=== PATIENT | male | born 1940 | race Caucasian/White ===

== ENCOUNTER 2018-07-03 05:42 | Day surgery (SDC) | payer MEDICARE, BC ==
[2018-06-30 14:52] VITALS: BMI 34.4
[2018-07-03] MEDS ORDERED: LACTATED RINGERS 1,000 ML IV SCH (05:50)
[2018-07-03 06:24] VITALS: RESP 18; TEMP 97.6
[2018-07-03] MEDS ORDERED: LIDOCAINE 1% 20 ML VIAL (10MG/ML) FOR IV START INTRADERMA ONE (06:48)
[2018-07-03 06:59] LABS: Glucose,Whole Blood 157 mg/dL (75-99)
[2018-07-03] MEDS ORDERED: PROPOFOL 10 MG/ML 20 ML VIAL IV ONE (07:05)
[2018-07-03 07:55] VITALS: BP 109/66; PULSE 78
--- NOTE | 2018-07-03 07:57 | PCN ---
PROCEDURE NOTE DATE OF SERVICE: 07/03/2018 PROCEDURE: Bone marrow aspirate and biopsy. INDICATION: History of acute lymphoblastic leukemia, now presenting with pancytopenia and with possible relapse. After obtaining consent from the patient, the procedure was performed in the endoscopy suite under general anesthesia performed by anesthesia team. The patient was put in the left lateral decubitus position. The right posterior iliac crest was localized. Skin was prepped with ChloraPrep. All sterile procedures were followed and 1 mL of 1% Xylocaine was used for local anesthetic. A small incision was then made and the Monoject needle was inserted and 15 mL of aspirate and about 1.5 cm core biopsy was obtained without any difficulties. Pressure applied afterwards. There was negligible blood loss. The patient tolerated procedure very well without any immediate complications. MMODL / IJN: [id number] /
[2018-07-03 07:58] LABS: Anisocytosis Slight; Hypochromasia Slight; MCH 33.7 pg (25.0-35.0); MCHC 34.2 g/dL (31.0-37.0); MCV 98.7 fL (80.0-100.0); Macrocytosis Slight; Poikilocytosis Moderate; RBC 2.02 m/uL (4.30-5.90); RDW 19.2 % (11.5-15.5)
[2018-07-03 08:09] LABS: HCT 19.9 % (39.0-53.0); HGB 6.8 gm/dL (13.0-17.5); WBC 1.3 k/uL (3.8-10.6)
[2018-07-03 08:32] LABS: Blast Cells # (M) 0.17 k/uL (0); Eosinophils # (M) 0.01 k/uL (0-0.7); Lymphocytes # (M) 0.81 k/uL (1.0-4.8); Monocytes # (M) 0.07 k/uL (0-1.0); Neutrophils # (M) 0.25 k/uL (1.3-7.7); Neutrophils % (M) 19 %; Nucleated Red Blood Cells 0 /100 WBC (0-0); Total Cells Counted 100
[2018-07-03 08:34] LABS: Basophilic Stippling Present; Polychromasia Present
[2018-07-03 08:36] LABS: RBC Fragments Present; Spherocytes Present; Tear Drop Cells Present
[2018-07-03 08:39] LABS: Platelet Count 44 k/uL (150-450)
== END 2018-07-03 08:27 | disposition home or self-care (01) ==
LOC: OR 05:42
PROVIDERS: ATTEND Internal Medicine Hematology & Oncology
DX: D61.818 Other pancytopenia (principal); D64.9 Anemia, unspecified; C91.01 Acute lymphoblastic leukemia, in remission; I11.0 Hypertensive heart disease with heart failure; I50.9 Heart failure, unspecified; I43 Cardiomyopathy in diseases classified elsewhere; E78.5 Hyperlipidemia, unspecified; M15.9 Polyosteoarthritis, unspecified; E11.9 Type 2 diabetes mellitus without complications; F32.9 Major depressive disorder, single episode, unspecified; Z85.46 Personal history of malignant neoplasm of prostate; Z92.21 Personal history of antineoplastic chemotherapy; Z92.3 Personal history of irradiation; Z90.79 Acquired absence of other genital organ(s); Z95.0 Presence of cardiac pacemaker; Z79.891 Long term (current) use of opiate analgesic; Z79.899 Other long term (current) drug therapy; Z86.73 Personal history of transient ischemic attack (TIA), and cerebral infarction without residual deficits; Z87.891 Personal history of nicotine dependence
CPT/HCPCS: 38221; 85025; J2704

== ENCOUNTER 2018-07-16 11:36 | Inpatient (IN) | payer MEDICARE, BC ==
[2018-07-16] MEDS ORDERED: PIPERACILLIN-TAZOBACTAM 3.375 GM in DEXTROSE/WATER 1 50ML.BAG IVPB STA (11:56)
[2018-07-16] MEDS ORDERED: ACETAMINOPHEN TAB 500 MG TAB PO STA (11:56)
[2018-07-16] MEDS ORDERED: IBUPROFEN 600 MG TAB PO STA (11:56)
[2018-07-16] MEDS: SODIUM CHLORIDE 0.9% 500 ML IV SCH ×2 (12:12→12:48)
--- NOTE | 2018-07-16 12:16 | ED ---
General Adult HPI <Kathleen Cleveland - Last Filed: 07/16/18 14:11> - General Source: EMS, RN notes reviewed Mode of arrival: EMS Limitations: no limitations <Jaleel Walls - Last Filed: 07/16/18 14:48> - General Chief complaint: Weakness Stated complaint: Fall Time Seen by Provider: 07/16/18 11:36 - History of Present Illness Initial comments: This is a 77-year-old male who presents emergency department for generalized weakness. His states he's been getting weaker over the last 3 days and today's at the point where he cannot hold up his own weight. Patient is also complaining of quite a bad rash on his left buttocks cheek going down his left thigh. Patient also is complaining of a extremely irritated and swollen left eye. Patient denies any visual disturbance. Patient denies any cough or known fever. Patient denies abdominal pain patient denies nausea vomiting diarrhea. Patient denies any dysuria hematuria urinary frequency. Patient denies headache patient denies numbness weakness. Patient denies any lightheadedness or dizziness. Patient also states he has AML (WallsJaleel) - Related Data Home Medications Medication Instructions Recorded Confirmed Furosemide [Lasix] 20 mg PO DAILY PRN 12/06/14 07/16/18 amLODIPine [Norvasc] 5 mg PO DAILY 06/30/18 07/16/18 oxyCODONE-APAP 5-325MG [Percocet 1 tab PO Q8HR PRN 07/03/18 07/16/18 5-325 mg] Metoprolol Succinate [Toprol Xl] 50 mg PO DAILY 07/16/18 07/16/18 Potassium Chloride [Klor-Con 20] 20 meq PO DAILY 07/16/18 07/16/18 Rosuvastatin Calcium 5 mg PO DAILY 07/16/18 07/16/18 Vilazodone HCl [Viibryd] 40 mg PO DAILY 07/16/18 07/16/18 Allergies Allergy/AdvReac Type Severity Reaction Status Date / Time Iodinated Contrast- Oral and Allergy Rash/Hives Verified 07/16/18 12:26 IV Dye Review of Systems ROS Other: All systems not noted in ROS Statement are negative. <Kathleen Cleveland - Last Filed: 07/16/18 14:11> ROS Other: All systems not noted in ROS Statement are negative. <Jaleel Walls - Last Filed: 07/16/18 14:48> ROS Statement: Those systems with pertinent positive or pertinent negative responses have been documented in the HPI. Past Medical History Past Medical History: Hyperlipidemia, Hypertension, Myocardial Infarction (non Q -wave) Additional Past Medical History / Comment(s): leukemia History of Any Multi-Drug Resistant Organisms: MRSA Date of last positivie culture/infection: 02/2014 MDRO Source:: scalp Past Surgical History: Cholecystectomy, Orthopedic Surgery, Pacemaker, Prostate Surgery, Tonsillectomy Additional Past Surgical History / Comment(s): left knee partial replacement, right ankle replacement Past Anesthesia/Blood Transfusion Reactions: No Reported Reaction Past Psychological History: No Psychological Hx Reported Smoking Status: Former smoker Past Alcohol Use History: None Reported Past Drug Use History: None Reported <Jaleel Walls - Last Filed: 07/16/18 14:48> General Exam Eye exam: Present: other (IOP-Right 13, Left 9) <Kathleen Cleveland - Last Filed: 07/16/18 14:11> Limitations: no limitations <Jaleel Walls - Last Filed: 07/16/18 14:48> - General Exam Comments Initial Comments: GENERAL: Patient is well-developed and well-nourished. Patient is nontoxic and well- hydrated and is in mild distress. ENT: Neck is soft and supple. No significant lymphadenopathy is noted. Oropharynx is clear. Moist mucous membranes. Neck has full range of motion without eliciting any pain. EYES: Conjunctiva of the left eye so swollen I cannot see any sclera only the iris. Extraocular movements were intact and pupils were equal round and reactive to light. Patient's eyelids are red and swollen. PULMONARY: Unlabored respirations. Good breath sounds bilaterally. No audible rales rhonchi or wheezing was noted. CARDIOVASCULAR: There is a regular rate and rhythm without any murmurs gallops or rubs. Femoral pulses are equal bilaterally ABDOMEN: Soft and nontender with normal bowel sounds. No palpable organomegaly was noted. There is no palpable pulsatile mass. SKIN: Patient has an extensive herpes zoster rash on the left buttocks and down the left posterior thigh. NEUROLOGIC: Patient is alert and oriented x3. Cranial nerves II through XII are grossly intact. Motor and sensory are also intact. Normal speech, volume and content. Symmetrical smile. MUSCULOSKELETAL: Normal extremities with adequate strength and full range of motion. No lower extremity swelling or edema. No calf tenderness. LYMPHATICS: No significant lymphadenopathy is noted PSYCHIATRIC: Normal psychiatric evaluation. (Jaleel Walls) Vital Signs 07/16/18 07/16/18 07/16/18 11:38 12:13 12:30 Temperature 101.1 F H Pulse Rate 94 90 88 Respiratory 18 18 18 Rate Blood Pressure 117/55 136/63 126/56 O2 Sat by Pulse 96 99 99 Oximetry 07/16/18 13:24 Temperature 99.0 F Pulse Rate 83 Respiratory 18 Rate Blood Pressure 126/60 O2 Sat by Pulse 99 Oximetry Medical Decision Making - Lab Data Result diagrams: 07/16/18 12:06 07/16/18 12:06 <Kathleen Cleveland - Last Filed: 07/16/18 14:11> - Lab Data Result diagrams: 07/16/18 12:06 07/16/18 12:06 <Jaleel Walls - Last Filed: 07/16/18 14:48> - Medical Decision Making EKG shows a paced rhythm at 94 bpm GA interval 170 QRS 130 QT interval 356 QTC is 445. Though the left eye is red swollen and there is quite a bit of chemosis patient has full range of motion of the eye and denies any visual acuity problems (Jaleel Walls) - Lab Data Lab Results 07/16/18 07/16/18 07/16/18 Range/Units 12:06 12:06 12:06 WBC 0.8 L* (3.8-10.6) k/uL RBC 2.47 L (4.30-5.90) m/uL Hgb 7.8 L (13.0-17.5) gm/dL Hct 23.1 L (39.0-53.0) % MCV 93.6 D (80.0-100.0) fL MCH 31.8 (25.0-35.0) pg MCHC 34.0 (31.0-37.0) g/dL RDW 18.3 H (11.5-15.5) % Plt Count 28 L* (150-450) k/uL Differential Comment Manual Slide Review Performed Large Platelets Present Polychromasia Present Poikilocytosis Slight Poikilocytosis (manual Present Anisocytosis Slight Macrocytosis Slight PT (9.0-12.0) sec INR (<1.2) APTT (22.0-30.0) sec Sodium 138 (137-145) mmol/L Potassium 4.3 (3.5-5.1) mmol/L Chloride 107 (98-107) mmol/L Carbon Dioxide 24 (22-30) mmol/L Anion Gap 7 mmol/L BUN 23 H (9-20) mg/dL Creatinine 0.90 (0.66-1.25) mg/dL Est GFR (CKD-EPI)AfAm >90 (>60 ml/min/1.73 sqM) Est GFR (CKD-EPI)NonAf 83 (>60 ml/min/1.73 sqM) Glucose 159 H (74-99) mg/dL Plasma Lactic Acid Micheal 1.4 (0.7-2.0) mmol/L Calcium 8.8 (8.4-10.2) mg/dL Total Bilirubin 1.0 (0.2-1.3) mg/dL AST 34 (17-59) U/L ALT 63 (21-72) U/L Alkaline Phosphatase 44 (38-126) U/L Total Creatine Kinase (55-170) U/L CK-MB (CK-2) (0.0-2.4) ng/mL CK-MB (CK-2) Rel Index Troponin I (0.000-0.034) ng/mL Total Protein 5.6 L (6.3-8.2) g/dL Albumin 3.5 (3.5-5.0) g/dL Urine Color Urine Appearance (Clear) Urine pH (5.0-8.0) Ur Specific [place] (1.001-1.035) Urine Protein (Negative) Urine Glucose (UA) (Negative) Urine Ketones (Negative) Urine Blood (Negative) Urine Nitrite (Negative) Urine Bilirubin (Negative) Urine Urobilinogen (<2.0) mg/dL Ur Leukocyte Esterase (Negative) Urine RBC (0-5) /hpf Urine WBC (0-5) /hpf Ur Squamous Epith Cells (0-4) /hpf Urine Mucus (None) /hpf 07/16/18 07/16/18 07/16/18 Range/Units 12:06 12:06 12:06 WBC (3.8-10.6) k/uL RBC (4.30-5.90) m/uL Hgb (13.0-17.5) gm/dL Hct (39.0-53.0) % MCV (80.0-100.0) fL MCH (25.0-35.0) pg MCHC (31.0-37.0) g/dL RDW (11.5-15.5) % Plt Count (150-450) k/uL Differential Comment Manual Slide Review Large Platelets Polychromasia Poikilocytosis Poikilocytosis (manual Anisocytosis Macrocytosis PT 10.2 (9.0-12.0) sec INR 1.0 (<1.2) APTT 24.3 (22.0-30.0) sec Sodium (137-145) mmol/L Potassium (3.5-5.1) mmol/L Chloride (98-107) mmol/L Carbon Dioxide (22-30) mmol/L Anion Gap mmol/L BUN (9-20) mg/dL Creatinine (0.66-1.25) mg/dL Est GFR (CKD-EPI)AfAm (>60 ml/min/1.73 sqM) Est GFR (CKD-EPI)NonAf (>60 ml/min/1.73 sqM) Glucose (74-99) mg/dL Plasma Lactic Acid Micheal (0.7-2.0) mmol/L Calcium (8.4-10.2) mg/dL Total Bilirubin (0.2-1.3) mg/dL AST (17-59) U/L ALT (21-72) U/L Alkaline Phosphatase (38-126) U/L Total Creatine Kinase 253 H (55-170) U/L CK-MB (CK-2) 1.2 (0.0-2.4) ng/mL CK-MB (CK-2) Rel Index 0.5 Troponin I <0.012 (0.000-0.034) ng/mL Total Protein (6.3-8.2) g/dL Albumin (3.5-5.0) g/dL Urine Color Yellow Urine Appearance Cloudy (Clear) Urine pH 5.5 (5.0-8.0) Ur Specific [place] 1.022 (1.001-1.035) Urine Protein 1+ H (Negative) Urine Glucose (UA) Negative (Negative) Urine Ketones Negative (Negative) Urine Blood Negative (Negative) Urine Nitrite Negative (Negative) Urine Bilirubin Negative (Negative) Urine Urobilinogen 2.0 (<2.0) mg/dL Ur Leukocyte Esterase Negative (Negative) Urine RBC 2 (0-5) /hpf Urine WBC 2 (0-5) /hpf Ur Squamous Epith Cells 2 (0-4) /hpf Urine Mucus Many H (None) /hpf Disposition <Kathleen Cleveland - Last Filed: 07/16/18 14:11> Time of Disposition: 13:15 <Jaleel Walls - Last Filed: 07/16/18 14:48> Clinical Impression: Herpes zoster, Chemosis of conjunctiva, Periorbital cellulitis, Leukopenia, Thrombocytopenia, Anemia, AML (acute myeloblastic leukemia) Disposition: ADMITTED IP TO THIS HOSP
[2018-07-16 12:21] LABS: Anisocytosis Slight; HCT 23.1 % (39.0-53.0); HGB 7.8 gm/dL (13.0-17.5); MCH 31.8 pg (25.0-35.0); MCV 93.6 fL (80.0-100.0); Macrocytosis Slight; Mean Platelet Volume 12.9; Poikilocytosis Slight; RBC 2.47 m/uL (4.30-5.90); RDW 18.3 % (11.5-15.5)
[2018-07-16] MEDS ORDERED: cefTRIAXone 2,000 MG in SODIUM CHLORIDE 0.9% 100 ML IVPB STA (12:28)
[2018-07-16 12:30] LABS: Partial Thromboplastin Time 24.3 sec (22.0-30.0); Prothrombin Time 10.2 sec (9.0-12.0)
[2018-07-16] MEDS ORDERED: cefTRIAXone IN SWFI 2,000 MG/20 ML SYRINGE IVP STA (12:30)
[2018-07-16 12:34] LABS: ALT 63 U/L (21-72); AST 34 U/L (17-59); Albumin 3.5 g/dL (3.5-5.0); Alkaline Phosphatase 44 U/L (38-126); Anion Gap 7 mmol/L; Blood Urea Nitrogen 23 mg/dL (9-20); Calcium 8.8 mg/dL (8.4-10.2); Carbon Dioxide 24 mmol/L (22-30); Chloride 107 mmol/L (98-107); Glucose 159 mg/dL (74-99); Potassium 4.3 mmol/L (3.5-5.1); Sodium 138 mmol/L (137-145); Total Protein 5.6 g/dL (6.3-8.2)
[2018-07-16 12:36] LABS: Appearance,Urine Cloudy (Clear); Bilirubin,Urine Negative (Negative); Blood,Urine Negative (Negative); Color,Urine Yellow; Glucose,Urine (UA) Negative (Negative); Ketones,Urine Negative (Negative); Leukocyte Esterase,Urine Negative (Negative); Mucus,Urine Many /hpf; Nitrite,Urine Negative (Negative); PH, Urine 5.5 (5.0-8.0); Protein,Urine 1+ (Negative); RBC,Urine 2 /hpf (0-5); Specific Gravity,Urine 1.022 (1.001-1.035); Squamous Epithelial Cell,Urine 2 /hpf (0-4); WBC,Urine 2 /hpf (0-5)
[2018-07-16 12:45] LABS: Creatine Kinase 253 U/L (55-170)
--- NOTE | 2018-07-16 12:55 | XR ---
EXAMINATION TYPE: XR chest 2V DATE OF EXAM: 07/16/2018 COMPARISON: Prior chest x-ray 05/17/2016 HISTORY: Fever, recent fall, trauma, hypertension TECHNIQUE: Frontal and lateral views of the chest are obtained. FINDINGS: There is a generator in the left pectoral region, intracardiac defibrillator leads are sta ble. No evident pneumothorax or pleural effusion. Heart is enlarged, rotation may accentuate the appe arance. Pulmonary vascularity and song are stable. Suspect some improvement in aeration. IMPRESSION: There is improvement in aeration compared to prior exam. Cardiomegaly.
[2018-07-16 12:58] LABS: Creatine Kinase MB 1.2 ng/mL (0.0-2.4); Troponin I <0.012 ng/mL (0.000-0.034)
[2018-07-16 13:00] LABS: WBC 0.8 k/uL (3.8-10.6)
[2018-07-16 13:33] LABS: Large Platelets Present; Platelet Count 28 k/uL (150-450); Poikilocytosis (M) Present; Polychromasia Present
[2018-07-16] MEDS ORDERED: CEFEPIME 2 GM in SODIUM CHLORIDE 0.9% 50 ML IVPB STA (13:45)
[2018-07-16] MEDS ORDERED: SODIUM CHLORIDE 0.9% 1,000 ML IV ONE (13:46)
[2018-07-16] MEDS ORDERED: VANCOMYCIN IV PER PHARMACY 1 EACH MISC MISCELLANE PRN (14:22)
[2018-07-16] MEDS ORDERED: oxyCODONE-APAP 5-325MG 1 EACH TAB PO PRN (15:13)
[2018-07-16] MEDS ORDERED: FUROSEMIDE 20 MG TAB PO PRN (15:13)
--- NOTE | 2018-07-16 15:49 | P.HPIM ---
History of Present Illness H&P Date: 07/16/18 Chief Complaint: Weakness and shingles This is a 77-year-old male, patient of Dr. Foster. He has a known past medical history of AML which was recently diagnosed and he was scheduled to start chemotherapy on Friday with Dr. Romeo. He also has a history of AML that was diagnosed in 2012 and had undergone chemotherapy. He has a history of prostate cancer status post surgery and radiation in 1998. 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 Patient also has history of hypertension and hyperlipidemia and myocardial infarction and prior pacemaker placement. Patient presents to the emergency room with complaints of generalized weakness and a rash along the left buttocks and into the thigh. Also having some cellulitis changes in the left eye. Patient reports symptoms started on Friday. He has a temp of 101.1 white count 0.8 hemoglobin 7.8 platelets are 28. His eye is red and swollen. There is puslike drainage. He denies any vision changes is reporting him some pain in the area. He also has extensive shingle rash along the left buttocks and into the left thigh. Patient was started on acyclovir cefepime and vancomycin in the ER and was given a dose of IV Zosyn and Rocephin. Infectious disease and oncology have been consulted. Chest x-ray shows improvement in aeration. EKG shows a atrial paced rhythm. Troponin was negative. And CK level 253. Patient denies any chest pain or shortness of breath. Denies any nausea or vomiting. Denies any bowel movement changes or any new urinary symptoms. Patient admits to chronic urinary dribbling after prostate procedure. Review of Systems Please refer to HPI otherwise unremarkable Past Medical History Past Medical History: Hyperlipidemia, Hypertension, Myocardial Infarction (non Q -wave) Additional Past Medical History / Comment(s): leukemia History of Any Multi-Drug Resistant Organisms: MRSA Date of last positivie culture/infection: 02/2014 MDRO Source:: scalp Past Surgical History: Cholecystectomy, Orthopedic Surgery, Pacemaker, Prostate Surgery, Tonsillectomy Additional Past Surgical History / Comment(s): left knee partial replacement, right ankle replacement Past Anesthesia/Blood Transfusion Reactions: No Reported Reaction Type of Cardiac Device: Permanent Pacemaker Device Placement Date:: unk Smoking Status: Former smoker Past Alcohol Use History: Daily Additional Past Alcohol Use History / Comment(s): Patient drinks 1-2 glasses of wine daily - Past Family History Mother Family Medical History: Cancer Additional Family Medical History / Comment(s): skin cancer Sister(s) Family Medical History: Cancer Additional Family Medical History / Comment(s): breast cancer Father Family Medical History: CVA/TIA Medications and Allergies Home Medications Medication Instructions Recorded Confirmed Type Furosemide [Lasix] 20 mg PO DAILY PRN 12/06/14 07/16/18 History amLODIPine [Norvasc] 5 mg PO DAILY 06/30/18 07/16/18 History oxyCODONE-APAP 5-325MG [Percocet 1 tab PO Q8HR PRN 07/03/18 07/16/18 History 5-325 mg] Metoprolol Succinate [Toprol Xl] 50 mg PO DAILY 07/16/18 07/16/18 History Potassium Chloride [Klor-Con 20] 20 meq PO DAILY 07/16/18 07/16/18 History Rosuvastatin Calcium 5 mg PO DAILY 07/16/18 07/16/18 History Vilazodone HCl [Viibryd] 40 mg PO DAILY 07/16/18 07/16/18 History Allergies Allergy/AdvReac Type Severity Reaction Status Date / Time Iodinated Contrast- Oral and Allergy Rash/Hives Verified 07/16/18 12:26 IV Dye Physical Exam Vitals: Vital Signs Temp Pulse Resp BP Pulse Ox 07/16/18 13:24 99.0 F 83 18 126/60 99 07/16/18 12:30 88 18 126/56 99 07/16/18 12:13 90 18 136/63 99 07/16/18 11:38 101.1 F H 94 18 117/55 96 Intake and Output 07/16/18 07/16/18 07/16/18 06:59 14:59 22:59 Other: Weight 99.79 kg Results CBC & Chem 7: 07/16/18 12:06 07/16/18 12:06 Labs: Abnormal Lab Results - Last 24 Hours (Table) 07/16/18 07/16/18 07/16/18 Range/Units 12:06 12:06 12:06 WBC 0.8 L* (3.8-10.6) k/uL RBC 2.47 L (4.30-5.90) m/uL Hgb 7.8 L (13.0-17.5) gm/dL Hct 23.1 L (39.0-53.0) % RDW 18.3 H (11.5-15.5) % Plt Count 28 L* (150-450) k/uL BUN 23 H (9-20) mg/dL Glucose 159 H (74-99) mg/dL Total Creatine Kinase (55-170) U/L Total Protein 5.6 L (6.3-8.2) g/dL Urine Protein 1+ H (Negative) Urine Mucus Many H (None) /hpf 07/16/18 Range/Units 12:06 WBC (3.8-10.6) k/uL RBC (4.30-5.90) m/uL Hgb (13.0-17.5) gm/dL Hct (39.0-53.0) % RDW (11.5-15.5) % Plt Count (150-450) k/uL BUN (9-20) mg/dL Glucose (74-99) mg/dL Total Creatine Kinase 253 H (55-170) U/L Total Protein (6.3-8.2) g/dL Urine Protein (Negative) Urine Mucus (None) /hpf Assessment and Plan Assessment: 1. Left periorbital cellulitis with concerns for possible shingles in that left eye. Patient started on acyclovir cefepime and vancomycin. Infectious disease has been consulted 2. Shingles rash along the left buttocks and thigh area continue with the acyclovir 3. Pancytopenia likely related to patient's AML and acute infections. Oncology has been consulted 4. Recent diagnosis of acute myeloid leukemia: Follows Dr. Romeo in the office patient scheduled to start chemotherapy on Friday 5. 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 History of prostate cancer status post surgery and radiation treatment in 1998 8. 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 History of essential hypertension 10. Hyperlipidemia GI prophylaxis Protonix and DVT prophylaxis SCDs Time with Patient: Greater than 30 (Greater than 60% of the total time spent in counseling and coordination of care.I performed an examination of the patient and discussed their management with the physician Brass Pourer. I have reviewed the Physician Brass Pourer's notes and agree with the documented findings and plan of care)
[2018-07-16] MEDS: VANCOMYCIN 1,500 MG in SODIUM CHLORIDE 0.9% 250 ML IVPB SCH (16:56)
[2018-07-16] MEDS: ACYCLOVIR SODIUM 1,000 MG in SODIUM CHLORIDE 0.9% 250 ML IVPB SCH (16:56)
[2018-07-16] MEDS: VILAZODONE HCL 40 MG PO SCH (17:48)
[2018-07-16] MEDS: CEFEPIME 2 GM in SODIUM CHLORIDE 0.9% 50 ML IVPB SCH (20:36)
[2018-07-16] MEDS ORDERED: predniSONE 10 MG TAB PO SCH (21:00)
[2018-07-17] MEDS: ACYCLOVIR SODIUM 1,000 MG in SODIUM CHLORIDE 0.9% 250 ML IVPB SCH ×4 (00:56→23:05)
[2018-07-17] MEDS: VANCOMYCIN 1,500 MG in SODIUM CHLORIDE 0.9% 250 ML IVPB SCH ×2 (02:47→15:16)
[2018-07-17] MEDS: CEFEPIME 2 GM in SODIUM CHLORIDE 0.9% 50 ML IVPB SCH ×3 (05:10→20:01)
[2018-07-17] MEDS: VILAZODONE HCL 40 MG PO SCH (08:39)
[2018-07-17] MEDS: ATORVASTATIN 10 MG TAB PO SCH (08:39)
[2018-07-17] MEDS: amLODIPine 5 MG TAB PO SCH (08:39)
[2018-07-17] MEDS: POTASSIUM CHLORIDE ER 20 MEQ TAB.ER PO SCH (08:39)
[2018-07-17] MEDS: PANTOPRAZOLE 40 MG TABLET PO SCH (08:39)
[2018-07-17] MEDS: METOPROLOL SUCCINATE (ER) 50 MG TAB.ER.24H PO SCH (08:39)
[2018-07-17 10:13] LABS: Anisocytosis Slight; HCT 20.2 % (39.0-53.0); MCH 33.1 pg (25.0-35.0); MCHC 34.5 g/dL (31.0-37.0); MCV 95.9 fL (80.0-100.0); Macrocytosis Slight; Mean Platelet Volume 11.9; Poikilocytosis Slight; RBC 2.11 m/uL (4.30-5.90); RDW 18.9 % (11.5-15.5)
[2018-07-17 10:17] LABS: WBC 0.8 k/uL (3.8-10.6)
[2018-07-17 10:18] LABS: Platelet Count 21 k/uL (150-450)
[2018-07-17 10:19] LABS: ALT 70 U/L (21-72); AST 38 U/L (17-59); Alkaline Phosphatase 41 U/L (38-126); Anion Gap 6 mmol/L; Blood Urea Nitrogen 17 mg/dL (9-20); Calcium 8.3 mg/dL (8.4-10.2); Carbon Dioxide 26 mmol/L (22-30); Chloride 107 mmol/L (98-107); Glucose 126 mg/dL (74-99); Potassium 3.8 mmol/L (3.5-5.1); Sodium 139 mmol/L (137-145); Total Bilirubin 0.9 mg/dL (0.2-1.3); Total Protein 5.1 g/dL (6.3-8.2)
[2018-07-17 10:50] LABS: Large Platelets Present
[2018-07-17] MEDS: SODIUM CHLORIDE 0.9% 1,000 ML IV SCH (11:32)
--- NOTE | 2018-07-17 11:46 | P.CONS ---
History of Present Illness - Reason for Consult Consult date: 07/17/18 Fever of unknown source - History of Present Illness This is a 77-year-old male patient with significant past history of AML under the care of Dr. Romeo and scheduled to start chemotherapy on Friday. 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 Patient presents to the [facility] emergency center with complaints of generalized weakness and a rash to the left buttocks and thigh and redness to the left eye. Temperature maximum 101.1. White count is 0.8, hemoglobin 7.8 and platelet count 28. BUN 23 and creatinine 0.9, CK 253, troponin negative. Urinalysis was cloudy with 1+ protein. Blood culture and urine culture status received. Chest x-ray is stable findings. He was diagnosed with herpes zoster and periorbital cellulitis. Emergency center, patient received ceftriaxone, cefepime, Zosyn, acyclovir and vancomycin. He is currently on acyclovir IV, cefepime and vancomycin. He is status post 1-1/2 L of IV fluid bolus. There are consults in place with oncology and ophthalmology. Patient has a poor historian, oriented to person and place. He does not have insight into his disease process and is not able to provide significant information. 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, History of Any Multi-Drug Resistant Organisms: MRSA Year Discovered:: 02/2014 MDRO Source:: scalp Past Surgical History: Cholecystectomy, Orthopedic Surgery, Pacemaker, Prostate Surgery, Tonsillectomy Additional Past Surgical History / Comment(s): left knee partial replacement, right ankle replacement Past Anesthesia/Blood Transfusion Reactions: No Reported Reaction Type of Cardiac Device: Permanent Pacemaker Device Placement Date:: unk Smoking Status: Former smoker Past Alcohol Use History: Daily Additional Past Alcohol Use History / Comment(s): She was a smoker of 2 packs per day for 15-20 years ago at 42 years ago. He lives at home with his . They have a home in [place] where they winter and a condo in [place]. He denies any pets or animal exposures. He has worked in the past for [id number]. He retired 20 years ago. He denies any service. Patient drinks 1-2 glasses of wine daily - Past Family History Mother Family Medical History: Cancer Additional Family Medical History / Comment(s): skin cancer Sister(s) Family Medical History: Cancer Additional Family Medical History / Comment(s): breast cancer Father Family Medical History: CVA/TIA Medications and Allergies Home Medications Medication Instructions Recorded Confirmed Type Furosemide [Lasix] 20 mg PO DAILY PRN 12/06/14 07/16/18 History amLODIPine [Norvasc] 5 mg PO DAILY 06/30/18 07/16/18 History oxyCODONE-APAP 5-325MG [Percocet 1 tab PO Q8HR PRN 07/03/18 07/16/18 History 5-325 mg] Metoprolol Succinate [Toprol Xl] 50 mg PO DAILY 07/16/18 07/16/18 History Potassium Chloride [Klor-Con 20] 20 meq PO DAILY 07/16/18 07/16/18 History Rosuvastatin Calcium 5 mg PO DAILY 07/16/18 07/16/18 History Vilazodone HCl [Viibryd] 40 mg PO DAILY 07/16/18 07/16/18 History Allergies Allergy/AdvReac Type Severity Reaction Status Date / Time Iodinated Contrast- Oral and Allergy Rash/Hives Verified 07/16/18 12:26 IV Dye Physical Exam Vitals: Vital Signs Temp Pulse Pulse Resp BP BP Pulse Ox 07/17/18 06:27 99.5 F 106 H 16 138/72 94 L 07/17/18 00:00 18 07/16/18 23:00 99.6 F 108 H 18 157/76 94 L 07/16/18 18:16 98.2 F 89 18 104/46 96 07/16/18 16:10 98.4 F 87 18 104/67 94 L 07/16/18 13:24 99.0 F 83 18 126/60 99 07/16/18 12:30 88 18 126/56 99 07/16/18 12:13 90 18 136/63 99 07/16/18 11:38 101.1 F H 94 18 117/55 96 Intake and Output 07/16/18 07/17/18 07/17/18 22:59 06:59 14:59 Other: # Voids 2 1 # Bowel Movements 2 Gen: This is a 77-year-old male. He is found in bed and appears to be in no acute distress. HEENT: Head is atraumatic, normocephalic. Pupils equal, round. Sclerae is anicteric. Conjunctiva pale. Mucous members of the mouth are moist. She is in place. NECK: Supple. No JVD. No lymphadenopathy. No thyromegaly. LUNGS: Clear to auscultation. No wheezes or rhonchi. No intercostal retractions. HEART: Regular rate and rhythm. No murmur. ABDOMEN: Soft. Bowel sounds are present. No masses. No tenderness. EXTREMITIES: No pedal edema. No calf tenderness. NEUROLOGICAL: Patient is awake, alert and oriented to person and he knows he is in a hospital. Very poor historian and unable to relate full medical history.. Cranial nerves 2 through 12 are grossly intact. Results Results: Laboratory Results WBC 0.8 k/uL (3.8-10.6) L* 07/17/18 09: RBC 2.11 m/uL (4.30-5.90) L 07/17/18 09:27 Hgb 7.0 gm/dL (13.0-17.5) L* 07/17/18 09: Hct 20.2 % (39.0-53.0) L 07/17/18 09: MCV 95.9 fL (80.0-100.0) 07/17/18 09: MCH 33.1 pg (25.0-35.0) 07/17/18 09: MCHC 34.5 g/dL (31.0-37.0) 07/17/18 09: RDW 18.9 % (11.5-15.5) H 07/17/18 09:27 Plt Count 21 k/uL (150-450) L* 07/17/18 09:27 Differential Comment 07/17/18 09: Manual Slide Review Performed 07/17/18 09:27 Large Platelets Present 07/17/18 09:27 Polychromasia Present 07/16/18 12:06 Poikilocytosis Slight 07/17/18 09:27 Poikilocytosis (manual Present 07/16/18 12:06 Anisocytosis Slight 07/17/18 09:27 Macrocytosis Slight 07/17/18 09:27 PT 10.2 sec (9.0-12.0) 07/16/18 12:06 INR 1.0 (<1.2) 07/16/18 12:06 APTT 24.3 sec (22.0-30.0) 07/16/18 12:06 Sodium 139 mmol/L (137-145) 07/17/18 09:27 Potassium 3.8 mmol/L (3.5-5.1) 07/17/18 09:27 Chloride 107 mmol/L (98-107) 07/17/18 09:27 Carbon Dioxide 26 mmol/L (22-30) 07/17/18 09:27 Anion Gap 6 mmol/L 07/17/18 09:27 BUN 17 mg/dL (9-20) 07/17/18 09:27 Creatinine 0.79 mg/dL (0.66-1.25) 07/17/18 09:27 Est GFR (CKD-EPI)AfAm >90 (>60 ml/min/1.73 sqM) 07/17/18 09:27 Est GFR (CKD-EPI)NonAf 88 (>60 ml/min/1.73 sqM) 07/17/18 09:27 Glucose 126 mg/dL (74-99) H 07/17/18 09:27 Plasma Lactic Acid Micheal 1.4 mmol/L (0.7-2.0) 07/16/18 12:06 Calcium 8.3 mg/dL (8.4-10.2) L 07/17/18 09:27 Total Bilirubin 0.9 mg/dL (0.2-1.3) 07/17/18 09:27 AST 38 U/L (17-59) 07/17/18 09:27 ALT 70 U/L (21-72) 07/17/18 09:27 Alkaline Phosphatase 41 U/L (38-126) 07/17/18 09:27 Total Creatine Kinase 253 U/L (55-170) H 07/16/18 12:06 CK-MB (CK-2) 1.2 ng/mL (0.0-2.4) 07/16/18 12:06 CK-MB (CK-2) Rel Index 0.5 07/16/18 12:06 Troponin I <0.012 ng/mL (0.000-0.034) 07/16/18 12:06 Total Protein 5.1 g/dL (6.3-8.2) L 07/17/18 09:27 Albumin 3.0 g/dL (3.5-5.0) L 07/17/18 09:27 Urine Color Yellow 07/16/18 12:06 Urine Appearance Cloudy (Clear) 07/16/18 12:06 Urine pH 5.5 (5.0-8.0) 07/16/18 12:06 Ur Specific [place] 1.022 (1.001-1.035) 07/16/18 12:06 Urine Protein 1+ (Negative) H 07/16/18 12:06 Urine Glucose (UA) Negative (Negative) 07/16/18 12:06 Urine Ketones Negative (Negative) 07/16/18 12:06 Urine Blood Negative (Negative) 07/16/18 12:06 Urine Nitrite Negative (Negative) 07/16/18 12:06 Urine Bilirubin Negative (Negative) 07/16/18 12:06 Urine Urobilinogen 2.0 mg/dL (<2.0) 07/16/18 12:06 Ur Leukocyte Esterase Negative (Negative) 07/16/18 12:06 Urine RBC 2 /hpf (0-5) 07/16/18 12:06 Urine WBC 2 /hpf (0-5) 07/16/18 12:06 Ur Squamous Epith Cells 2 /hpf (0-4) 07/16/18 12:06 Urine Mucus Many /hpf (None) H 07/16/18 12:06 CBC & Chem 7: 07/17/18 09:27 07/17/18 09:27 Labs: Abnormal Lab Results - Last 24 Hours (Table) 07/16/18 07/16/18 07/16/18 Range/Units 12:06 12:06 12:06 WBC 0.8 L* (3.8-10.6) k/uL RBC 2.47 L (4.30-5.90) m/uL Hgb 7.8 L (13.0-17.5) gm/dL Hct 23.1 L (39.0-53.0) % RDW 18.3 H (11.5-15.5) % Plt Count 28 L* (150-450) k/uL BUN 23 H (9-20) mg/dL Glucose 159 H (74-99) mg/dL Total Creatine Kinase (55-170) U/L Total Protein 5.6 L (6.3-8.2) g/dL Urine Protein 1+ H (Negative) Urine Mucus Many H (None) /hpf 07/16/18 Range/Units 12:06 WBC (3.8-10.6) k/uL RBC (4.30-5.90) m/uL Hgb (13.0-17.5) gm/dL Hct (39.0-53.0) % RDW (11.5-15.5) % Plt Count (150-450) k/uL BUN (9-20) mg/dL Glucose (74-99) mg/dL Total Creatine Kinase 253 H (55-170) U/L Total Protein (6.3-8.2) g/dL Urine Protein (Negative) Urine Mucus (None) /hpf Microbiology - Last 24 Hours (Table) 07/16/18 12:06 Urine Culture - Preliminary Urine,Voided Assessment and Plan Plan: This is a 77-year-old male patient presented with leukopenic sepsis along with cellulitis of the left periorbital area and herpes zoster posterior left thigh and buttocks. He is currently on antimicrobials with acyclovir, cefepime and vancomycin which will be continued. Consult is in place for ophthalmology and oncology. Continue supportive care. Further recommendations as patient progresses. The above dictated assessment and findings were discussed with Dr. Min. The impression and plan of care have been directed as dictated. Grecia Carson nurse practitioner acting as scribe for Dr. Min.
--- NOTE | 2018-07-17 13:18 | P.PN ---
Subjective Progress Note Date: 07/17/18 This is a 77-year-old male, patient of Dr. Foster. He has a known past medical history of AML which was recently diagnosed and he was scheduled to start chemotherapy on Friday with Dr. Romeo. He also has a history of AML that was diagnosed in 2012 and had undergone chemotherapy. He has a history of prostate cancer status post surgery and radiation in 1998. 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 Patient also has history of hypertension and hyperlipidemia and myocardial infarction and prior pacemaker placement. Patient presents to the emergency room with complaints of generalized weakness and a rash along the left buttocks and into the thigh. Also having some cellulitis changes in the left eye. Patient reports symptoms started on Friday. He has a temp of 101.1 white count 0.8 hemoglobin 7.8 platelets are 28. His eye is red and swollen. There is puslike drainage. He denies any vision changes is reporting him some pain in the area. He also has extensive shingle rash along the left buttocks and into the left thigh. Patient was started on acyclovir cefepime and vancomycin in the ER and was given a dose of IV Zosyn and Rocephin. Infectious disease and oncology have been consulted. Chest x-ray shows improvement in aeration. EKG shows a atrial paced rhythm. Troponin was negative. And CK level 253. Patient denies any chest pain or shortness of breath. Denies any nausea or vomiting. Denies any bowel movement changes or any new urinary symptoms. Patient admits to chronic urinary dribbling after prostate procedure. 07/17/2018 patient remains on the acyclovir and antibiotics for his herpes zoster rash and periorbital cellulitis of the left eye. Patient seen by infectious disease. Awaiting ophthalmology consult and oncology consult. Patient denies any chest pain shortness of breath any nausea or vomiting. Denies any bowel movement changes or urinary symptoms. Does not report any pain. Objective - Vital Signs Vital signs: Vital Signs Temp 99.5 F 07/17/18 06:27 Pulse 106 H 07/17/18 06:27 Resp 16 07/17/18 06:27 BP 138/72 07/17/18 06:27 Pulse Ox 94 L 07/17/18 06:27 Intake & Output 08/07/17/18 07/17/18 18:59 06:59 18:59 Weight 99.79 kg Other: # Voids 1 # Bowel Movements 2 - Exam HEENT left periorbital cellulitis changes with swelling of the left eyelid. There is some drainage and crusting around the eye. Head normocephalic Neck supple Lungs clear to auscultation bilaterally no wheezing or crackles Heart regular rate and rhythm S1-S2, no rub or gallop Abdomen is soft nontender nondistended positive bowel sounds no hepatosplenomegaly Extremities no edema Neuro alert and orientated to 3 Skin exam patient has a herpes zoster rash along the left buttocks and thigh - Labs CBC & Chem 7: 07/17/18 09:27 07/17/18 09:27 Labs: Abnormal Lab Results - Last 24 Hours (Table) 07/16/18 07/17/18 07/17/18 Range/Units 12:06 09:27 09:27 WBC 0.8 L* (3.8-10.6) k/uL RBC 2.11 L (4.30-5.90) m/uL Hgb 7.0 L* (13.0-17.5) gm/dL Hct 20.2 L (39.0-53.0) % RDW 18.9 H (11.5-15.5) % Plt Count 28 L* 21 L* (150-450) k/uL Glucose 126 H (74-99) mg/dL Calcium 8.3 L (8.4-10.2) mg/dL Total Protein 5.1 L (6.3-8.2) g/dL Albumin 3.0 L (3.5-5.0) g/dL Microbiology - Last 24 Hours (Table) 07/16/18 12:06 Urine Culture - Preliminary Urine,Voided Assessment and Plan Assessment: 1. Left periorbital cellulitis with concerns for possible shingles in that left eye. Patient started on acyclovir cefepime and vancomycin. Ophthalmology and infectious disease consulted 2. Shingles rash along the left buttocks and thigh area continue with the acyclovir 3. Pancytopenia likely related to patient's AML and acute infections. Oncology has been consulted 4. Recent diagnosis of acute myeloid leukemia: Follows Dr. Romeo in the office patient scheduled to start chemotherapy on Friday 5. 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 History of prostate cancer status post surgery and radiation treatment in 1998 8. 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 History of essential hypertension 10. Hyperlipidemia 11. Sepsis secondary to left periorbital cellulitis and herpes zoster. Present on admission. Patient is eating and drinking well. We'll place patient on fluids normal saline at 100 mL an hour. Patient is still having some tachycardia heart rate 106 12. Generalized weakness likely related to his acute infections. Consult physical therapy. GI prophylaxis Protonix and DVT prophylaxis SCDs
--- NOTE | 2018-07-17 15:11 | P.CONS ---
History of Present Illness - Reason for Consult Consult date: 07/17/18 AML Requesting physician: Jaleel Walls - Chief Complaint Fever - History of Present Illness This is a very nice patient who was diagnosed with ALL in in [place],at that time he was extremely sick,had acute renal failure and diverticulitis. Once the diagnosis was established,he received induction chemotherapy (had hyper CVAD)which was completed in ,had a repeat bone marrow biopsy, not into complete molecular remission,the option of allogenic stem cell transplant was discussed with him but he opted for maintenance therapy. He started daily 6MP,weekly MTX,monthly prednisone and vincristine in August,,treatment was held for 2 weeks in due to pancytopenia then it was resumed at a reduced dose,he also had rituxan every 2 months The maintenance treatment was completed in ,most of his treatment was done in [place],he had some of his maintenance therapy in [place] when he was in town for the summer. He had an evaluation in spring 2017 in [place],he was in remission at that time, I did call his oncologist Dr Lora and confirmed it with him,he came to [place] for the summer,was feeling tired,had CBC done at Dr Goldberg in May/2018 and was severly pancytonenic. Bone marrow biopsy done on 07/03/2018 was consistent with AML,cytogenetic revealed mutiple complex cytogenetics,including 5q- and monosomy 7,molecular studies are PENDING Mr. Childress recently seen Dr. Wilson in the office on 07/13/18. A long discussion was had at that time regarding the poor prognosis of this disease, given his declining and poor performance status. He was offered different treatment options to help slow disease process, although treatment options are limited given his performance status, co-morbidities, in particular, cardiac co- morbidities, which preclude the use of standard induction. They discussed hypomethylating agents, dacogen or vidaza, potential side effects /benefits. He was also referred to Dr Moreno, at [facility], he agreed with the plan at this time. He was set up to start Dacogen on Friday in office, although he began with fevers and chills and presented to the emergency department. [place]houn cultures are pending. He is receiving vancomycin and zosyn broad spectrum antibiotics. Infectious disease is following. T-Max was on admission at 101.1, since has been improved. Review of Systems A 14 point review of systems assessed and completed and all negative except HPI. Past Medical History Past Medical History: Hyperlipidemia, Hypertension, Myocardial Infarction (non Q -wave) Additional Past Medical History / Comment(s): leukemia History of Any Multi-Drug Resistant Organisms: MRSA Year Discovered:: 02/2014 MDRO Source:: scalp Past Surgical History: Cholecystectomy, Orthopedic Surgery, Pacemaker, Prostate Surgery, Tonsillectomy Additional Past Surgical History / Comment(s): left knee partial replacement, right ankle replacement Past Anesthesia/Blood Transfusion Reactions: No Reported Reaction Type of Cardiac Device: Permanent Pacemaker Device Placement Date:: unk Smoking Status: Former smoker Past Alcohol Use History: Daily Additional Past Alcohol Use History / Comment(s): Patient drinks 1-2 glasses of wine daily - Past Family History Mother Family Medical History: Cancer Additional Family Medical History / Comment(s): skin cancer Sister(s) Family Medical History: Cancer Additional Family Medical History / Comment(s): breast cancer Father Family Medical History: CVA/TIA Medications and Allergies Home Medications Medication Instructions Recorded Confirmed Type Furosemide [Lasix] 20 mg PO DAILY PRN 12/06/14 07/16/18 History amLODIPine [Norvasc] 5 mg PO DAILY 06/30/18 07/16/18 History oxyCODONE-APAP 5-325MG [Percocet 1 tab PO Q8HR PRN 07/03/18 07/16/18 History 5-325 mg] Metoprolol Succinate [Toprol Xl] 50 mg PO DAILY 07/16/18 07/16/18 History Potassium Chloride [Klor-Con 20] 20 meq PO DAILY 07/16/18 07/16/18 History Rosuvastatin Calcium 5 mg PO DAILY 07/16/18 07/16/18 History Vilazodone HCl [Viibryd] 40 mg PO DAILY 07/16/18 07/16/18 History Allergies Allergy/AdvReac Type Severity Reaction Status Date / Time Iodinated Contrast- Oral and Allergy Rash/Hives Verified 07/16/18 12:26 IV Dye Physical Exam Vitals: Vital Signs Temp Pulse Pulse Resp BP BP Pulse Ox 07/17/18 06:27 99.5 F 106 H 16 138/72 94 L 08/24/18 00:00 18 07/16/18 23:00 99.6 F 108 H 18 157/76 94 L 07/16/18 18:16 98.2 F 89 18 104/46 96 07/16/18 16:10 98.4 F 87 18 104/67 94 L 07/16/18 13:24 99.0 F 83 18 126/60 99 07/16/18 12:30 88 18 126/56 99 07/16/18 12:13 90 18 136/63 99 07/16/18 11:38 101.1 F H 94 18 117/55 96 Intake and Output 07/16/18 07/17/18 07/17/18 22:59 06:59 14:59 Other: # Voids 2 1 # Bowel Movements 2 - Constitutional General appearance: cooperative, no acute distress - EENT Left eye injected, edema, and herpetic lesions Eyes: EOMI ENT: hard of hearing, NA/AT, normal oropharynx - Neck supple, trachea midline Neck: normal ROM - Respiratory Respiratory: bilateral: CTA (No increased effort) - Cardiovascular Heart rate: 106 Rhythm: regular Heart sounds: normal: S1, S2 - Gastrointestinal General gastrointestinal: normal bowel sounds, soft - Integumentary Disseminated Shingles Integumentary: pale - Neurologic No focal Defects Neurologic: CNII-XII intact - Musculoskeletal Musculoskeletal: generalized weakness, strength equal bilaterally - Psychiatric Anxious and very tearful Psychiatric: A&O x's 3, appropriate affect, intact judgment & insight Results CBC & Chem 7: 07/17/18 09:27 07/17/18 09:27 Labs: Abnormal Lab Results - Last 24 Hours (Table) 07/16/18 07/16/18 07/16/18 Range/Units 12:06 12:06 12:06 WBC 0.8 L* (3.8-10.6) k/uL RBC 2.47 L (4.30-5.90) m/uL Hgb 7.8 L (13.0-17.5) gm/dL Hct 23.1 L (39.0-53.0) % RDW 18.3 H (11.5-15.5) % Plt Count 28 L* (150-450) k/uL BUN 23 H (9-20) mg/dL Glucose 159 H (74-99) mg/dL Calcium (8.4-10.2) mg/dL Total Creatine Kinase (55-170) U/L Total Protein 5.6 L (6.3-8.2) g/dL Albumin (3.5-5.0) g/dL Urine Protein 1+ H (Negative) Urine Mucus Many H (None) /hpf 07/16/18 07/17/18 07/17/18 Range/Units 12:06 09:27 09:27 WBC 0.8 L* (3.8-10.6) k/uL RBC 2.11 L (4.30-5.90) m/uL Hgb 7.0 L* (13.0-17.5) gm/dL Hct 20.2 L (39.0-53.0) % RDW 18.9 H (11.5-15.5) % Plt Count 21 L* (150-450) k/uL BUN (9-20) mg/dL Glucose 126 H (74-99) mg/dL Calcium 8.3 L (8.4-10.2) mg/dL Total Creatine Kinase 253 H (55-170) U/L Total Protein 5.1 L (6.3-8.2) g/dL Albumin 3.0 L (3.5-5.0) g/dL Urine Protein (Negative) Urine Mucus (None) /hpf Microbiology - Last 24 Hours (Table) 07/16/18 12:06 Urine Culture - Preliminary Urine,Voided Chest x-ray: report reviewed Assessment and Plan Plan: Assessment and Recommendations: 1. Febrile Neutropenia: Likely viral secondary to shingles. - Infectious Disease is Following - [facility] Cultures are pending, Chest X-ray Neg - T-Max on Admission 101.1 - Vancomycin and ZOsyn 2. Pancytopenia secondary to AML Normocytic anemia - Monitor and transfuse with irradiated blood products when hemoglobin is less than 7 Thrombocytopenia - Monitor and transfuse if less than 10, SDP irradiated blood products, Monitor s/s bleeding and transfuse if s/s bleeding Neutropenia - As Above 3. Acute Myeloid Leukemia - - Follows with Dr. Wilson - Not Candidate for aggressive Induction therapy secondary to overall performance status and cardiac co-morbidities - Plan was to begin Dacogen Friday in office while awaiting cytogenetics - Hold Plan for dacogen until acute infection improves/resolves 4. Disseminated Shingles, inclving left eye: - He continues on anti-viral medication - Discussed case with Dr. Wilson and benefit of adding a colony stimulating factor outweigh the risk in the picture of an active infection. - Zarxio added to patients medications
[2018-07-17] MEDS: FILGRASTIM-SNDZ 480 MCG/0.8 ML SYRINGE SQ SCH (15:16)
--- NOTE | 2018-07-17 18:11 | CONS ---
CONSULTATION DATE OF CONSULTATION: July 17, 2018. HISTORY OF PRESENT ILLNESS: This is a 77-year-old white male with a history of AML that was diagnosed initially in 2012. The patient has undergone chemotherapy previously and was scheduled to restart chemo treatments as well. He also has a history of prostate cancer, basal cell carcinoma, as well as MRSA. More recently, the patient states that he developed swelling and redness in his left eye and periorbital area. He denies any new decrease in visual acuity however. EXAM: Visual acuity measured 20/70 in the right eye and 20/50 in the left. The pupils are equal, reactive to light. There was no afferent defect. Extraocular movements were full in all gaze positions. No diplopia was elicited in any gaze position. On penlight exam, evaluation of the lids demonstrated swelling and erythema of the left periorbital tissue and especially the left upper lid. The eyelid was not swollen shut, however. The left conjunctivae showed a subconjunctival hemorrhage for 360 degrees around the limbus. Both corneas were clear. The anterior chambers were deep and the lenses were centered. Fundus exam revealed a good red reflex. IMPRESSION: Left preseptal cellulitis. The patient states that his swelling and redness has decreased since the initiation of IV antibiotics yesterday. In light of this, I would recommend continuing on his current regimen and agree with consulting Infectious Disease due to his history of MRSA. I would be happy to have him follow up as an outpatient. PANFILO / KUMAR: [id number] /
--- NOTE | 2018-07-17 18:33 | CT ---
EXAMINATION TYPE: CT brain wo con DATE OF EXAM: 07/17/2018 COMPARISON: 05/17/2016 HISTORY: Mental status changes. Weakness CT DLP: mGycm Automated exposure control for dose reduction was used. FINDINGS: There is cerebral cortical atrophy. There is no mass effect nor midline shift. There is no sign of in tracranial hemorrhage. Exam is limited slightly by motion. The calvarium is intact. IMPRESSION: CEREBRAL ATROPHY. NO ACUTE INTRACRANIAL ABNORMALITY. NO CHANGE.
[2018-07-17] MEDS: ACETAMINOPHEN TAB 325 MG TAB PO PRN (21:41)
--- NOTE | 2018-07-18 00:09 | P.CON ---
Consult Note - . Consult date: 07/17/18 Assessment/Plan:: This is a 77-year-old male patient with significant past history of AML under the care of Dr. Romeo and scheduled to start chemotherapy on Friday. 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 Patient presents to the [facility] emergency center with complaints of generalized weakness and a rash to the left buttocks and thigh and redness to the left eye. Temperature maximum 101.1. White count is 0.8, hemoglobin 7.8 and platelet count 28. BUN 23 and creatinine 0.9, CK 253, troponin negative. Urinalysis was cloudy with 1+ protein. Blood culture and urine culture status received. Chest x-ray is stable findings. He was diagnosed with herpes zoster and periorbital cellulitis. Emergency center, patient received ceftriaxone, cefepime, Zosyn, acyclovir and vancomycin. He is currently on acyclovir IV, cefepime and vancomycin. He is status post 1-1/2 L of IV fluid bolus. There are consults in place with oncology and ophthalmology. Patient has a poor historian, oriented to person and place. He does not have insight into his disease process and is not able to provide significant information. Please see the consult note as dictated by nurse practitioner Grecia Leejane. The patient is examined and his is present. She relates he's had a significant decline recently. With his diagnosis of AML after his diagnosis available he has further and rapidly declined. He is evidence of the significant swelling and erythema to the periorbital area and to the eye, as well as the pruritus sella on the left buttocks area. The patient does have altered mental status and will be having a computed tomography scan done shortly. This point in time the patient is profoundly ill with his recently diagnosed AML in chemotherapy needs to be on hold given his current level of illness. Antibiotic therapy is with cefepime and vancomycin and acyclovir . We 'll need to have further input with hematology oncology, as the possible need of a lumbar puncture which is very challenging given his current clinical situation. Concern would be to leukemic involvement or potential for central nervous system infection, with concern to varicella given his current shingles. I agree with evaluation, assessment and plan as dictated by nurse practitioner Mrs. Grecia Carson.
[2018-07-18] MEDS: VANCOMYCIN 1,500 MG in SODIUM CHLORIDE 0.9% 250 ML IVPB SCH ×2 (02:53→15:01)
[2018-07-18] MEDS: CEFEPIME 2 GM in SODIUM CHLORIDE 0.9% 50 ML IVPB SCH ×3 (05:06→20:34)
[2018-07-18] MEDS: SODIUM CHLORIDE 0.9% 1,000 ML IV SCH ×2 (06:06→15:01)
[2018-07-18] MEDS: PANTOPRAZOLE 40 MG TABLET PO SCH (08:46)
[2018-07-18] MEDS: amLODIPine 5 MG TAB PO SCH (08:46)
[2018-07-18] MEDS: ATORVASTATIN 10 MG TAB PO SCH (08:46)
[2018-07-18] MEDS: ACYCLOVIR SODIUM 1,000 MG in SODIUM CHLORIDE 0.9% 250 ML IVPB SCH ×3 (08:46→23:15)
[2018-07-18] MEDS: METOPROLOL SUCCINATE (ER) 50 MG TAB.ER.24H PO SCH (08:47)
[2018-07-18] MEDS: POTASSIUM CHLORIDE ER 20 MEQ TAB.ER PO SCH (08:47)
[2018-07-18] MEDS: VILAZODONE HCL 40 MG PO SCH (08:47)
[2018-07-18 09:01] LABS: ALT 69 U/L (21-72); AST 36 U/L (17-59); Albumin 2.9 g/dL (3.5-5.0); Alkaline Phosphatase 39 U/L (38-126); Anion Gap 8 mmol/L; Blood Urea Nitrogen 14 mg/dL (9-20); Calcium 8.4 mg/dL (8.4-10.2); Carbon Dioxide 24 mmol/L (22-30); Chloride 106 mmol/L (98-107); Glucose 100 mg/dL (74-99); Potassium 3.7 mmol/L (3.5-5.1); Sodium 138 mmol/L (137-145)
[2018-07-18 09:09] LABS: Anisocytosis Slight; HCT 20.7 % (39.0-53.0); HGB 7.2 gm/dL (13.0-17.5); MCH 33.2 pg (25.0-35.0); MCHC 34.5 g/dL (31.0-37.0); MCV 96.3 fL (80.0-100.0); Macrocytosis Slight; Mean Platelet Volume 12.6; Poikilocytosis Slight; RBC 2.15 m/uL (4.30-5.90); RDW 18.8 % (11.5-15.5)
[2018-07-18 09:11] LABS: Platelet Count 22 k/uL (150-450)
[2018-07-18 09:24] LABS: Band Neutrophils % 1 %; Eosinophils # (M) 0.01 k/uL (0-0.7); Lymphocytes # (M) 0.58 k/uL (1.0-4.8); Monocytes # (M) 0.09 k/uL (0-1.0); Neutrophils % (M) 31 %; Nucleated Red Blood Cells 1 /100 WBC (0-0); Polychromasia Present; Total Cells Counted 100
[2018-07-18 09:25] LABS: Ovalocytes Present; Toxic Granulation Present
--- NOTE | 2018-07-18 10:51 | P.PN ---
Subjective Progress Note Date: 07/18/18 Patient continues to have intermittent fevers, with a maximum of 101.8 in the last 24 hours. He has developed confusion, though he remains alert. He denies any significant pain at this time, other than eye discomfort. He denies any decline in vision in the left eye. Objective - Vital Signs Vital signs: Vital Signs Temp 99 F 07/18/18 09:01 Pulse 102 H 07/18/18 05:45 Resp 20 07/18/18 05:45 BP 145/67 07/18/18 05:45 Pulse Ox 96 07/18/18 05:45 Intake & Output 07/17/18 07/18/18 07/18/18 18:59 06:59 18:59 Intake Total 600 50 Balance 600 50 Weight 99.79 kg Intake: Oral 600 50 Other: # Voids 1 2 # Bowel Movements 1 1 - Constitutional General appearance: Present: no acute distress - EENT EENT Comment(s): Left periorbital erythema and swelling. Conjunctival injection Eyes: Present: EOMI - Respiratory Respiratory: bilateral: CTA - Cardiovascular Rhythm: regular Heart sounds: normal: S1, S2 - Gastrointestinal General gastrointestinal: Present: normal bowel sounds, soft - Integumentary Integumentary: Present: rash (Non-confluent mostly papular rash covering left scalp and left side of face. No active pustules seen currently. He) - Neurologic Neurologic Comment(s): Patient is alert. But appears to be confused. He was oriented to self, but was unable to give me his address, or the correct day of the week. He did know that this was June. He thought he had an appointment with Dr. Wilson today. Neurologic: Present: CNII-XII intact - Musculoskeletal Musculoskeletal: Present: generalized weakness, strength equal bilaterally - Psychiatric Psychiatric Comment(s): Confused. Oriented partially to time and place. - Labs CBC & Chem 7: 07/18/18 08:20 07/18/18 08:20 Labs: Abnormal Lab Results - Last 24 Hours (Table) 07/18/18 07/18/18 Range/Units 08:20 08:20 WBC 1.0 L* (3.8-10.6) k/uL RBC 2.15 L (4.30-5.90) m/uL Hgb 7.2 L (13.0-17.5) gm/dL Hct 20.7 L (39.0-53.0) % RDW 18.8 H (11.5-15.5) % Plt Count 22 L* (150-450) k/uL Neutrophils # (Manual) 0.30 L (1.3-7.7) k/uL Lymphocytes # (Manual) 0.58 L (1.0-4.8) k/uL Nucleated RBCs 1 H (0-0) /100 WBC Glucose 100 H (74-99) mg/dL Total Protein 5.0 L (6.3-8.2) g/dL Albumin 2.9 L (3.5-5.0) g/dL Microbiology - Last 24 Hours (Table) 07/16/18 12:06 Urine Culture - Final Urine,Voided 07/16/18 12:06 Blood Culture - Preliminary Blood No Growth after 24 hours Assessment and Plan (1) Neutropenic fever Narrative/Plan: The patient continues to have intermittent fevers, though hemodynamics are not in the sepsis range currently. Patient has been seen by ID. He is currently on broad-spectrum antibiotics, including IV acyclovir. Continue antibiotics per ID Current Visit: No Status: Acute Priority: High Code(s): D70.9 - NEUTROPENIA, UNSPECIFIED SNOMED Code(s): 737641573 (2) Herpes zoster Narrative/Plan: The patient is on IV acyclovir. Current Visit: Yes Status: Acute Code(s): B02.9 - ZOSTER WITHOUT COMPLICATIONS SNOMED Code(s): 3189642 (3) AML (acute myeloblastic leukemia) Narrative/Plan: The patient has not started treatment yet. He has severe pancytopenia due to underlying AML. Continue to monitor counts are supportive transfusions as needed. Hemoglobin and platelet counts are in a safe range currently Current Visit: Yes Status: Acute Code(s): C92.00 - ACUTE MYELOBLASTIC LEUKEMIA, NOT HAVING ACHIEVED REMISSION SNOMED Code(s): 91774603 (4) Confusion Narrative/Plan: This seems to have developed after the admission. The patient is alert and responsive. Therefore herpes encephalitis appears less likely. Leukemic meningeal involvement, as well as medication effect on among the differentials. I will discuss with Dr. Min regarding possibility of LP. If felt to be indicated, we will consult IR. The situation is, indicated by the low platelet counts. The patient will need platelet transfusions for invasive procedures Current Visit: Yes Status: Acute Code(s): R41.0 - DISORIENTATION, UNSPECIFIED SNOMED Code(s): 079462670
[2018-07-18] MEDS: FILGRASTIM-SNDZ 480 MCG/0.8 ML SYRINGE SQ SCH (11:22)
[2018-07-18] MEDS ORDERED: VANCOMYCIN TROUGH DUE 1 EACH MISC MISCELLANE ONE (14:00)
--- NOTE | 2018-07-18 14:14 | P.PN ---
Subjective Progress Note Date: 07/18/18 This is a 77-year-old male, patient of Dr. Foster. He has a known past medical history of AML which was recently diagnosed and he was scheduled to start chemotherapy on Friday with Dr. Romeo. He also has a history of AML that was diagnosed in 2012 and had undergone chemotherapy. He has a history of prostate cancer status post surgery and radiation in 1998. 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 Patient also has history of hypertension and hyperlipidemia and myocardial infarction and prior pacemaker placement. Patient presents to the emergency room with complaints of generalized weakness and a rash along the left buttocks and into the thigh. Also having some cellulitis changes in the left eye. Patient reports symptoms started on Friday. He has a temp of 101.1 white count 0.8 hemoglobin 7.8 platelets are 28. His eye is red and swollen. There is puslike drainage. He denies any vision changes is reporting him some pain in the area. He also has extensive shingle rash along the left buttocks and into the left thigh. Patient was started on acyclovir cefepime and vancomycin in the ER and was given a dose of IV Zosyn and Rocephin. Infectious disease and oncology have been consulted. Chest x-ray shows improvement in aeration. EKG shows a atrial paced rhythm. Troponin was negative. And CK level 253. Patient denies any chest pain or shortness of breath. Denies any nausea or vomiting. Denies any bowel movement changes or any new urinary symptoms. Patient admits to chronic urinary dribbling after prostate procedure. 07/17/2018 patient remains on the acyclovir and antibiotics for his herpes zoster rash and periorbital cellulitis of the left eye. Patient seen by infectious disease. Awaiting ophthalmology consult and oncology consult. Patient denies any chest pain shortness of breath any nausea or vomiting. Denies any bowel movement changes or urinary symptoms. Does not report any pain. On 07/18/2018 patient is alert confused in no apparent distress, he had episodes of hallucinations, computed tomography scan of the brain was done yesterday and did not reveal significant abnormality, he is being followed by infectious disease and oncology, neurology consultation was also requested, continue was current management, may need lumbar puncture to assess cause of confusion if not improving. Objective - Vital Signs Vital signs: Vital Signs Temp 99 F 07/18/18 09:01 Pulse 102 H 07/18/18 05:45 Resp 20 07/18/18 05:45 BP 145/67 07/18/18 05:45 Pulse Ox 96 07/18/18 05:45 Intake & Output 07/17/18 07/18/18 07/18/18 18:59 06:59 18:59 Intake Total 600 50 Balance 600 50 Weight 99.79 kg Intake: Oral 600 50 Other: # Voids 1 2 # Bowel Movements 1 1 - Exam HEENT left periorbital cellulitis changes with swelling of the left eyelid. There is some drainage and crusting around the eye. Head normocephalic Neck supple Lungs clear to auscultation bilaterally no wheezing or crackles Heart regular rate and rhythm S1-S2, no rub or gallop Abdomen is soft nontender nondistended positive bowel sounds no hepatosplenomegaly Extremities no edema Neuro alert and orientated to 3 Skin exam patient has a herpes zoster rash along the left buttocks and thigh - Labs CBC & Chem 7: 07/18/18 08:20 07/18/18 08:20 Labs: Abnormal Lab Results - Last 24 Hours (Table) 07/18/18 07/18/18 Range/Units 08:20 08:20 WBC 1.0 L* (3.8-10.6) k/uL RBC 2.15 L (4.30-5.90) m/uL Hgb 7.2 L (13.0-17.5) gm/dL Hct 20.7 L (39.0-53.0) % RDW 18.8 H (11.5-15.5) % Plt Count 22 L* (150-450) k/uL Neutrophils # (Manual) 0.30 L (1.3-7.7) k/uL Lymphocytes # (Manual) 0.58 L (1.0-4.8) k/uL Nucleated RBCs 1 H (0-0) /100 WBC Glucose 100 H (74-99) mg/dL Total Protein 5.0 L (6.3-8.2) g/dL Albumin 2.9 L (3.5-5.0) g/dL Microbiology - Last 24 Hours (Table) 07/16/18 12:06 Urine Culture - Final Urine,Voided 07/16/18 12:06 Blood Culture - Preliminary Blood No Growth after 24 hours Assessment and Plan Plan: 1. Left periorbital cellulitis with concerns for possible shingles in that left eye. Patient started on acyclovir cefepime and vancomycin. Ophthalmology and infectious disease consulted 2. Shingles rash along the left buttocks and thigh area continue with the acyclovir 3. Pancytopenia likely related to patient's AML and acute infections. Oncology has been consulted 4. Recent diagnosis of acute myeloid leukemia: Follows Dr. Romeo in the office patient scheduled to start chemotherapy on Friday 5. 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 History of prostate cancer status post surgery and radiation treatment in 1998 8. 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 History of essential hypertension 10. Hyperlipidemia 11. Sepsis secondary to left periorbital cellulitis and herpes zoster. Present on admission. Patient is eating and drinking well. We'll place patient on fluids normal saline at 100 mL an hour. Patient is still having some tachycardia heart rate 106 12. Generalized weakness likely related to his acute infections. Consult physical therapy. 13. Confusion and episodes of hallucination differential diagnosis include side effect of multiple medication versus leukemia meningeal involvement versus herpes encephalitis related to his zoster infection, patient may need lumbar puncture, he is maintained on IV acyclovir, oncology and infectious disease are following, will add neurology consult for assessment, computed tomography scan of the brain did not reveal significant abnormalities. GI prophylaxis Protonix and DVT prophylaxis SCDs
[2018-07-18] MEDS: ACETAMINOPHEN TAB 325 MG TAB PO PRN (15:19)
[2018-07-19] MEDS ORDERED: VANCOMYCIN TROUGH DUE 1 EACH MISC MISCELLANE ONE (02:00)
[2018-07-19] MEDS: VANCOMYCIN 1,500 MG in SODIUM CHLORIDE 0.9% 250 ML IVPB SCH ×2 (03:24→14:08)
[2018-07-19] MEDS: ACETAMINOPHEN TAB 325 MG TAB PO PRN (03:49)
[2018-07-19] MEDS: SODIUM CHLORIDE 0.9% 1,000 ML IV SCH ×3 (04:45→22:20)
[2018-07-19] MEDS: CEFEPIME 2 GM in SODIUM CHLORIDE 0.9% 50 ML IVPB SCH ×3 (05:28→20:41)
[2018-07-19] MEDS: ACYCLOVIR SODIUM 1,000 MG in SODIUM CHLORIDE 0.9% 250 ML IVPB SCH ×2 (08:25→17:25)
[2018-07-19] MEDS: ATORVASTATIN 10 MG TAB PO SCH (08:27)
[2018-07-19] MEDS: METOPROLOL SUCCINATE (ER) 50 MG TAB.ER.24H PO SCH (08:27)
[2018-07-19] MEDS: PANTOPRAZOLE 40 MG TABLET PO SCH (08:27)
[2018-07-19] MEDS: amLODIPine 5 MG TAB PO SCH (08:27)
[2018-07-19] MEDS: POTASSIUM CHLORIDE ER 20 MEQ TAB.ER PO SCH (08:27)
[2018-07-19 09:49] LABS: Anisocytosis Slight; MCH 31.9 pg (25.0-35.0); MCHC 33.4 g/dL (31.0-37.0); MCV 95.5 fL (80.0-100.0); Macrocytosis Slight; Mean Platelet Volume 13.1; Poikilocytosis Slight; RBC 2.03 m/uL (4.30-5.90); RDW 18.5 % (11.5-15.5)
[2018-07-19 09:50] LABS: Platelet Count 24 k/uL (150-450); WBC 1.1 k/uL (3.8-10.6)
[2018-07-19 09:51] LABS: HGB 6.5 gm/dL (13.0-17.5)
[2018-07-19 09:52] LABS: HCT 19.4 % (39.0-53.0)
[2018-07-19 10:08] LABS: Band Neutrophils % 1 %; Monocytes # (M) 0.01 k/uL (0-1.0); Neutrophils % (M) 34 %; Nucleated Red Blood Cells 0 /100 WBC (0-0); Polychromasia Present; Total Cells Counted 100
[2018-07-19 10:20] LABS: ALT 62 U/L (21-72); AST 28 U/L (17-59); Albumin 2.6 g/dL (3.5-5.0); Alkaline Phosphatase 37 U/L (38-126); Anion Gap 6 mmol/L; Blood Urea Nitrogen 15 mg/dL (9-20); Calcium 8.1 mg/dL (8.4-10.2); Carbon Dioxide 23 mmol/L (22-30); Chloride 109 mmol/L (98-107); Glucose 92 mg/dL (74-99); Potassium 3.5 mmol/L (3.5-5.1); Sodium 138 mmol/L (137-145); Total Bilirubin 0.7 mg/dL (0.2-1.3); Total Protein 4.7 g/dL (6.3-8.2)
[2018-07-19] MEDS: VILAZODONE HCL 40 MG PO SCH ×2 (10:22→14:08)
[2018-07-19] MEDS: FILGRASTIM-SNDZ 480 MCG/0.8 ML SYRINGE SQ SCH (10:22)
--- NOTE | 2018-07-19 16:19 | P.PN ---
Subjective Progress Note Date: 07/19/18 This is a 77-year-old male, patient of Dr. Foster. He has a known past medical history of AML which was recently diagnosed and he was scheduled to start chemotherapy on Friday with Dr. Romeo. He also has a history of AML that was diagnosed in 2012 and had undergone chemotherapy. He has a history of prostate cancer status post surgery and radiation in 1998. 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 Patient also has history of hypertension and hyperlipidemia and myocardial infarction and prior pacemaker placement. Patient presents to the emergency room with complaints of generalized weakness and a rash along the left buttocks and into the thigh. Also having some cellulitis changes in the left eye. Patient reports symptoms started on Friday. He has a temp of 101.1 white count 0.8 hemoglobin 7.8 platelets are 28. His eye is red and swollen. There is puslike drainage. He denies any vision changes is reporting him some pain in the area. He also has extensive shingle rash along the left buttocks and into the left thigh. Patient was started on acyclovir cefepime and vancomycin in the ER and was given a dose of IV Zosyn and Rocephin. Infectious disease and oncology have been consulted. Chest x-ray shows improvement in aeration. EKG shows a atrial paced rhythm. Troponin was negative. And CK level 253. Patient denies any chest pain or shortness of breath. Denies any nausea or vomiting. Denies any bowel movement changes or any new urinary symptoms. Patient admits to chronic urinary dribbling after prostate procedure. 07/17/2018 patient remains on the acyclovir and antibiotics for his herpes zoster rash and periorbital cellulitis of the left eye. Patient seen by infectious disease. Awaiting ophthalmology consult and oncology consult. Patient denies any chest pain shortness of breath any nausea or vomiting. Denies any bowel movement changes or urinary symptoms. Does not report any pain. On 07/18/2018 patient is alert confused in no apparent distress, he had episodes of hallucinations, computed tomography scan of the brain was done yesterday and did not reveal significant abnormality, he is being followed by infectious disease and oncology, neurology consultation was also requested, continue was current management, may need lumbar puncture to assess cause of confusion if not improving. On 07/19/2018 patient is more alert than yesterday no new episodes of hallucinations hemoglobin is down to 6.5 and 1 unit of red blood cell transfusion was ordered. Patient is denying any symptoms at this time there is no fever or chills no headache or dizziness no chest pain no shortness of breath no cough no nausea or vomiting no abdominal pain no diarrhea and no urinary symptoms. Objective - Vital Signs Vital signs: Vital Signs Temp 100.0 F H 07/19/18 15:00 Pulse 91 07/19/18 15:00 Resp 20 07/19/18 15:00 BP 131/70 07/19/18 15:00 Pulse Ox 95 07/19/18 15:00 Intake & Output 07/18/18 07/19/18 07/19/18 18:59 06:59 18:59 Intake Total 200 Balance 200 Intake: Oral 200 Other: # Voids 3 2 3 - Exam HEENT left periorbital cellulitis changes with swelling of the left eyelid. There is some drainage and crusting around the eye. Head normocephalic Neck supple Lungs clear to auscultation bilaterally no wheezing or crackles Heart regular rate and rhythm S1-S2, no rub or gallop Abdomen is soft nontender nondistended positive bowel sounds no hepatosplenomegaly Extremities no edema Neuro alert and orientated to 3 Skin exam patient has a herpes zoster rash along the left buttocks and thigh - Labs CBC & Chem 7: 07/19/18 09:09 07/19/18 09:09 Labs: Abnormal Lab Results - Last 24 Hours (Table) 07/19/18 07/19/18 Range/Units 09:09 09:09 WBC 1.1 L* (3.8-10.6) k/uL RBC 2.03 L (4.30-5.90) m/uL Hgb 6.5 L* (13.0-17.5) gm/dL Hct 19.4 L* (39.0-53.0) % RDW 18.5 H (11.5-15.5) % Plt Count 24 L* (150-450) k/uL Neutrophils # (Manual) 0.30 L (1.3-7.7) k/uL Lymphocytes # (Manual) 0.70 L (1.0-4.8) k/uL Chloride 109 H (98-107) mmol/L Calcium 8.1 L (8.4-10.2) mg/dL Alkaline Phosphatase 37 L (38-126) U/L Total Protein 4.7 L (6.3-8.2) g/dL Albumin 2.6 L (3.5-5.0) g/dL Microbiology - Last 24 Hours (Table) 07/16/18 12:06 Blood Culture - Preliminary Blood No Growth after 72 hours Assessment and Plan Plan: 1. Left periorbital cellulitis with concerns for possible shingles in that left eye. Patient started on acyclovir cefepime and vancomycin. Ophthalmology and infectious disease consulted 2. Shingles rash along the left buttocks and thigh area continue with the acyclovir 3. Pancytopenia likely related to patient's AML and acute infections. Oncology has been consulted 4. Recent diagnosis of acute myeloid leukemia: Follows Dr. Romeo in the office patient scheduled to start chemotherapy on Friday 5. History of ALL in 2012 status post chemotherapy 6. 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 History of prostate cancer status post surgery and radiation treatment in 1998 8. 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 History of essential hypertension 10. Hyperlipidemia 11. Sepsis secondary to left periorbital cellulitis and herpes zoster. Present on admission. Patient is eating and drinking well. We'll place patient on fluids normal saline at 100 mL an hour. Patient is still having some tachycardia heart rate 106 12. Generalized weakness likely related to his acute infections. Consult physical therapy. 13. Confusion and episodes of hallucination differential diagnosis include side effect of multiple medication versus leukemia meningeal involvement versus herpes encephalitis related to his zoster infection, patient may need lumbar puncture, he is maintained on IV acyclovir, oncology and infectious disease are following, will add neurology consult for assessment, computed tomography scan of the brain did not reveal significant abnormalities. GI prophylaxis Protonix and DVT prophylaxis SCDs
--- NOTE | 2018-07-19 16:27 | P.CNNES ---
History of Present Illness Consult date: 07/19/18 Requesting physician: Gilma Oropeza Reason for Consult: Confusion Chief complaint: Confusion History of Present Illness: Neurology is consulting on a 77-year-old male for confusion. patient presented to the ED for generalized weakness. Spouse stated he has been getting weaker over the last 72 hours to the point where he cannot hold up his own weight. Patient is complaining of a rash on his left gluteal area going down into his left thigh. Patient also is complaining of extremely irritated swollen left eye. Patient denies any visual disturbance. Patient denies any cough or known fever. Patient denies abdominal pain, nausea vomiting diarrhea. Patient denies headache, denies numbness and weakness. Patient denies any lightheadedness or dizziness. Patient does have known history of AML, prostate cancer, basal cell carcinoma, squamous cell carcinoma. Patient is due to start chemotherapy on Friday. Patient CT brain shows no acute process. Ophthalmology has seen the patient and as noted patient can follow follow-up outpatient. Infectious diseases is already on consult, hematology is already involved as well. On contact, patient was alert and did express emotional outbursts and mood swings. Patient was in no acute distress. Review of Systems systems not noted are negative Past Medical History Past Medical History: Hyperlipidemia, Hypertension, Myocardial Infarction (non Q -wave) Additional Past Medical History / Comment(s): leukemia History of Any Multi-Drug Resistant Organisms: MRSA Date of last positivie culture/infection: 02/2014 MDRO Source:: scalp Past Surgical History: Cholecystectomy, Orthopedic Surgery, Pacemaker, Prostate Surgery, Tonsillectomy Additional Past Surgical History / Comment(s): left knee partial replacement, right ankle replacement Past Anesthesia/Blood Transfusion Reactions: No Reported Reaction Type of Cardiac Device: Permanent Pacemaker Device Placement Date:: Smoking Status: Former smoker Past Alcohol Use History: Daily Additional Past Alcohol Use History / Comment(s): Patient drinks 1-2 glasses of wine daily - Past Family History Mother Family Medical History: Cancer Additional Family Medical History / Comment(s): skin cancer Sister(s) Family Medical History: Cancer Additional Family Medical History / Comment(s): breast cancer Father Family Medical History: CVA/TIA Medications and Allergies Home Medications Medication Instructions Recorded Confirmed Type Furosemide [Lasix] 20 mg PO DAILY PRN 12/06/14 07/16/18 History amLODIPine [Norvasc] 5 mg PO DAILY 06/30/18 07/16/18 History oxyCODONE-APAP 5-325MG [Percocet 1 tab PO Q8HR PRN 07/03/18 07/16/18 History 5-325 mg] Metoprolol Succinate [Toprol Xl] 50 mg PO DAILY 07/16/18 07/16/18 History Potassium Chloride [Klor-Con 20] 20 meq PO DAILY 07/16/18 07/16/18 History Rosuvastatin Calcium 5 mg PO DAILY 07/16/18 07/16/18 History Vilazodone HCl [Viibryd] 40 mg PO DAILY 07/16/18 07/16/18 History Allergies Allergy/AdvReac Type Severity Reaction Status Date / Time Iodinated Contrast- Oral and Allergy Rash/Hives Verified 07/16/18 12:26 IV Dye Physical Examination - Vital Signs Vital Signs: Vital Signs Temp Pulse Resp BP Pulse Ox 07/19/18 15:00 100.0 F H 91 20 131/70 95 07/19/18 10:00 100.2 F H 85 16 118/64 95 07/19/18 07:21 93 20 135/77 93 L 07/19/18 06:22 98.9 F 07/19/18 03:53 101 F H 07/19/18 00:15 99.2 F 100 20 149/71 93 L 07/18/18 16:56 99.2 F Intake and Output 07/19/18 07/19/18 07/19/18 06:59 14:59 22:59 Intake Total 100 Balance 100 Intake: Oral 100 Other: # Voids 2 3 General appearance: Alert, no apparent distress. Head: scars noted multiple Eyes: left eye cellulitis Ear, nose and throat: Normal exam, mucous membranes moist Neck: Normal inspection, absent tenderness, lymphadenopathy. Respiratory: No increased work of breathing Cardiovascular: Regular rate, rhythm GI/abdominal: No guarding integumentary: Numerous head scalp scars Extremities: Full range of motion, normal capillary refill, no tenderness, pedal edema joint swelling, calf tenderness. Neurological: cranial nerves II through XII intact no lateralizing weakness no seizure activity noted on physical exam no pronator drift and no nystagmus. equal and symmetrical Sensation: Equal and symmetrical Psychological: Mood and Affect inappropriate for setting, consistent with pseudo -bulbar Results CT brain no acute process - Laboratory Findings CBC and BMP: 07/19/18 09:09 07/19/18 09:09 Abnormal Lab Findings: Abnormal Labs 07/16/18 07/16/18 07/16/18 12:06 12:06 12:06 WBC 0.8 L* RBC 2.47 L Hgb 7.8 L Hct 23.1 L RDW 18.3 H Plt Count 28 L* Neutrophils # (Manual) Lymphocytes # (Manual) Nucleated RBCs Chloride BUN 23 H Glucose 159 H Calcium Alkaline Phosphatase Total Creatine Kinase Total Protein 5.6 L Albumin Urine Protein 1+ H Urine Mucus Many H 07/16/18 07/17/18 07/17/18 12:06 09:27 09:27 WBC 0.8 L* RBC 2.11 L Hgb 7.0 L* Hct 20.2 L RDW 18.9 H Plt Count 21 L* Neutrophils # (Manual) Lymphocytes # (Manual) Nucleated RBCs Chloride BUN Glucose 126 H Calcium 8.3 L Alkaline Phosphatase Total Creatine Kinase 253 H Total Protein 5.1 L Albumin 3.0 L Urine Protein Urine Mucus 07/18/18 07/18/18 07/19/18 08:20 08:20 09:09 WBC 1.0 L* 1.1 L* RBC 2.15 L 2.03 L Hgb 7.2 L 6.5 L* Hct 20.7 L 19.4 L* RDW 18.8 H 18.5 H Plt Count 22 L* 24 L* Neutrophils # (Manual) 0.30 L 0.30 L Lymphocytes # (Manual) 0.58 L 0.70 L Nucleated RBCs 1 H Chloride BUN Glucose 100 H Calcium Alkaline Phosphatase Total Creatine Kinase Total Protein 5.0 L Albumin 2.9 L Urine Protein Urine Mucus 07/19/18 09:09 WBC RBC Hgb Hct RDW Plt Count Neutrophils # (Manual) Lymphocytes # (Manual) Nucleated RBCs Chloride 109 H BUN Glucose Calcium 8.1 L Alkaline Phosphatase 37 L Total Creatine Kinase Total Protein 4.7 L Albumin 2.6 L Urine Protein Urine Mucus Assessment and Plan (1) 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 Priority: Medium Code(s): C91.00 - ACUTE LYMPHOBLASTIC LEUKEMIA NOT HAVING ACHIEVED REMISSION SNOMED Code(s): 29018374 (2) Anemia Current Visit: Yes Status: Acute Code(s): D64.9 - ANEMIA, UNSPECIFIED SNOMED Code(s): 657449544 (3) Confusion Current Visit: Yes Status: Acute Code(s): R41.0 - DISORIENTATION, UNSPECIFIED SNOMED Code(s): 382370773 (4) Periorbital cellulitis Current Visit: Yes Status: Acute Code(s): L03.213 - PERIORBITAL CELLULITIS SNOMED Code(s): 321946395 (5) Thrombocytopenia Current Visit: Yes Status: Acute Code(s): D69.6 - THROMBOCYTOPENIA, UNSPECIFIED SNOMED Code(s): 955397640 (6) PBA (pseudobulbar affect) Current Visit: Yes Status: Acute Code(s): F48.2 - PSEUDOBULBAR AFFECT SNOMED Code(s): 64038977 Plan: patient does appear to be experiencing intermittent confusion as well as intermittent mood swings. Mood swings and emotional changes appear more consistent with pseudobulbar affect. Patient could be started on Nuedexta however hospital pharmacy does not stock the medication so it will need to be started outpatient. Patient's prior CT of the brain was negative for acute process on 07/17/18. Given the patient's intermittent confusion, I am going to update the patient's CT of the brain at this time to investigate any new or changed underlying etiology to account for symptoms. Also going to request EEG. Consider possible psychiatric consult for PBA as well as to assess patient' s overall psychological status given his significant medical comorbidities and cancer diagnosis. Further recommendations once the results of testing is received and reviewed. If patient's CT brain and EEG returned unremarkable or within normal limits, patient can be cleared to neurology at that time. Status: Neurology will continue to follow and provide updates as needed or warranted with noted parameters above for clearance if imaging and testing is unremarkable or within normal limits. Contact our office with any questions I have discussed the plan of care with the physician prior to implementation and he agrees with the plan as implemented.
--- NOTE | 2018-07-19 19:18 | CT ---
EXAMINATION TYPE: CT brain wo con DATE OF EXAM: 07/19/2018 HISTORY: confusion CT DLP: 1118 mGycm. Automated Exposure Control for Dose Reduction was Utilized. TECHNIQUE: CT scan of the head is performed without contrast. COMPARISON: Unenhanced CT brain 07/17/2018. FINDINGS: An ovoid focus of extra-axial high attenuation is identified in the anterior aspect of the left middl e cranial fossa which measures up to 1.4 cm. This was obscured on the prior study secondary to signif icant patient motion. There remains no midline shift . There is diffuse ventricular and sulcal prominence consistent with d iffuse age-related cerebral atrophy. There is low-attenuation in the periventricular white matter co nsistent with chronic small vessel ischemic change. The globes are intact and the visualized sinuses are clear. IMPRESSION: 1. No acute intraparenchymal hemorrhage or midline shift. 2. Left middle cranial fossa extra-axial ovoid hyperattenuation. 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 Patient's history indicates ma lignancy and dural metastasis is also a consideration. This was not present on prior study from 2015. An MRI with IV contrast could be performed for further characterization.
[2018-07-19] MEDS ORDERED: RX INFO: IV CONTRAST WAS GIVEN 1 EACH MISC MISCELLANE PRN (19:29)
[2018-07-19] MEDS ORDERED: diphenhydrAMINE 50 MG/ML 1 ML VIAL IVP STA (19:41)
[2018-07-19] MEDS ORDERED: FAMOTIDINE 20 MG/2 ML VIAL IV STA (19:41)
[2018-07-19] MEDS ORDERED: methylPREDNISolone SOD SUCCI 125 MG/2 ML VIAL IV STA (19:41)
--- NOTE | 2018-07-19 21:04 | CT ---
EXAMINATION TYPE: CT brain w con DATE OF EXAM: 07/19/2018 COMPARISON: Unenhanced CT brain earlier the same day. HISTORY: Abnormal findings on CT CT DLP: 872.7 mGycm Automated exposure control for dose reduction was used. CONTRAST: CT scan of the head is performed with IV Contrast, patient injected with 100 mL of Isovue 300. FINDINGS: There is no abnormal enhancing mass or midline shift identified. The ventricles and sulci are within normal limits in size. The globes are intact and the visualized sinuses are clear. The previously described extra-axial mass in the middle cranial fossa is favored to be artifactual. IMPRESSION: Negative contrast enhanced head CT exam. Abnormality in the left middle cranial fossa described on th e previous CT is favored to be artifactual.
--- NOTE | 2018-07-19 23:12 | P.PN ---
Subjective Progress Note Date: 07/19/18 The pt is awake and alert. He is well oriented today, though recall is still diminished. He is not confused today. He denied any change in vision. He continues to have intermittent fevers. Objective - Vital Signs Vital signs: Vital Signs Temp 99.0 F 07/19/18 22:42 Pulse 85 07/19/18 22:42 Resp 17 07/19/18 22:42 BP 153/79 07/19/18 22:42 Pulse Ox 92 L 07/19/18 22:42 Intake & Output 07/19/18 07/19/18 07/20/18 06:59 18:59 06:59 Intake Total 200 0 Balance 200 0 Weight 99.79 kg Intake: Oral 200 Blood Product 0 Rc Irr As1 Unit 0 [id number] Other: # Voids 2 3 - Constitutional General appearance: Present: no acute distress - EENT EENT Comment(s): left periorbital cellulitis diminished Eyes: Present: EOMI, PERRLA ENT: Present: hearing grossly normal, normal oropharynx - Respiratory Respiratory: bilateral: CTA - Cardiovascular Rhythm: regular Heart sounds: normal: S1, S2 - Gastrointestinal General gastrointestinal: Present: normal bowel sounds, soft - Integumentary Integumentary: Present: rash (scalp, left side of face, left buttock- stable, mostly scabbed. No pustules) - Musculoskeletal Musculoskeletal: Present: generalized weakness, strength equal bilaterally - Psychiatric Psychiatric: Present: A&O x's 3 - Labs CBC & Chem 7: 07/19/18 09:09 07/19/18 09:09 Labs: Abnormal Lab Results - Last 24 Hours (Table) 07/19/18 07/19/18 07/19/18 Range/Units 09:09 09:09 11:23 WBC 1.1 L* (3.8-10.6) k/uL RBC 2.03 L (4.30-5.90) m/uL Hgb 6.5 L* (13.0-17.5) gm/dL Hct 19.4 L* (39.0-53.0) % RDW 18.5 H (11.5-15.5) % Plt Count 24 L* (150-450) k/uL Neutrophils # (Manual) 0.30 L (1.3-7.7) k/uL Lymphocytes # (Manual) 0.70 L (1.0-4.8) k/uL Chloride 109 H (98-107) mmol/L Calcium 8.1 L (8.4-10.2) mg/dL Alkaline Phosphatase 37 L (38-126) U/L Total Protein 4.7 L (6.3-8.2) g/dL Albumin 2.6 L (3.5-5.0) g/dL Crossmatch See Detail Microbiology - Last 24 Hours (Table) 07/16/18 12:06 Blood Culture - Preliminary Blood No Growth after 72 hours Assessment and Plan (1) Neutropenic fever Narrative/Plan: The pt continues to have intemittent fevers. Cultures remain negative. Hemodynamics are otherwise mostly normal. Continue antibiotics per ID. Tumor fever remains a possibility WBC remains low, with no response to GCSF Current Visit: No Status: Acute Priority: High Code(s): D70.9 - NEUTROPENIA, UNSPECIFIED SNOMED Code(s): 503679692 (2) Herpes zoster Narrative/Plan: No new lesions noted. Continue Acyclovir. Clinically, given pt's improved mental status, encephalitis appears less likely ( though response to treatment cannot be ruled out) Current Visit: Yes Status: Acute Code(s): B02.9 - ZOSTER WITHOUT COMPLICATIONS SNOMED Code(s): 6958556 (3) AML (acute myeloblastic leukemia) Narrative/Plan: The pt continues to have pancytopenia related to the same. Transfuse 1 U PRBC for Hgb < 7. Continue to monitor counts, with transfusion support as needed. The plan is to treat with hypomethylating agent, if current situation improves sufficiently. Current Visit: Yes Status: Acute Code(s): C92.00 - ACUTE MYELOBLASTIC LEUKEMIA, NOT HAVING ACHIEVED REMISSION SNOMED Code(s): 71315212 (4) Confusion Narrative/Plan: Improved. Thus leukemic meningitis appears unlikely.Given his improvement, and attendant risks of the procedure, a LP is not felt to be indicated at this time. Current Visit: Yes Status: Acute Code(s): R41.0 - DISORIENTATION, UNSPECIFIED SNOMED Code(s): 222907120
[2018-07-20] MEDS: ACYCLOVIR SODIUM 1,000 MG in SODIUM CHLORIDE 0.9% 250 ML IVPB SCH ×3 (01:24→17:34)
[2018-07-20] MEDS: VANCOMYCIN 1,500 MG in SODIUM CHLORIDE 0.9% 250 ML IVPB SCH ×2 (03:05→14:16)
[2018-07-20] MEDS: CEFEPIME 2 GM in SODIUM CHLORIDE 0.9% 50 ML IVPB SCH ×3 (05:19→20:52)
[2018-07-20] MEDS: amLODIPine 5 MG TAB PO SCH (08:06)
[2018-07-20] MEDS: PANTOPRAZOLE 40 MG TABLET PO SCH (08:06)
[2018-07-20] MEDS: ATORVASTATIN 10 MG TAB PO SCH (08:06)
[2018-07-20 08:07] LABS: ALT 74 U/L (21-72); AST 38 U/L (17-59); Alkaline Phosphatase 42 U/L (38-126); Anion Gap 8 mmol/L; Anisocytosis Slight; Blood Urea Nitrogen 19 mg/dL (9-20); Calcium 8.5 mg/dL (8.4-10.2); Carbon Dioxide 22 mmol/L (22-30); Chloride 109 mmol/L (98-107); Glucose 178 mg/dL (74-99); HCT 24.4 % (39.0-53.0); MCH 32.4 pg (25.0-35.0); MCV 95.2 fL (80.0-100.0); Macrocytosis Slight; Mean Platelet Volume 12.9; Poikilocytosis Slight; Potassium 4.1 mmol/L (3.5-5.1); RBC 2.56 m/uL (4.30-5.90); RDW 17.9 % (11.5-15.5); Sodium 139 mmol/L (137-145); Total Bilirubin 0.7 mg/dL (0.2-1.3); Total Protein 5.2 g/dL (6.3-8.2)
[2018-07-20] MEDS: VILAZODONE HCL 40 MG PO SCH (08:07)
[2018-07-20] MEDS: METOPROLOL SUCCINATE (ER) 50 MG TAB.ER.24H PO SCH (08:07)
[2018-07-20] MEDS: POTASSIUM CHLORIDE ER 20 MEQ TAB.ER PO SCH (08:07)
[2018-07-20 08:24] LABS: WBC 1.3 k/uL (3.8-10.6)
[2018-07-20 08:26] LABS: HGB 8.3 gm/dL (13.0-17.5); Platelet Count 23 k/uL (150-450)
[2018-07-20 09:01] LABS: Lymphocytes # (M) 0.64 k/uL (1.0-4.8); Neutrophils # (M) 0.56 k/uL (1.3-7.7); Neutrophils % (M) 43 %; Nucleated Red Blood Cells 0 /100 WBC (0-0); Total Cells Counted 100
[2018-07-20] MEDS: FILGRASTIM-SNDZ 480 MCG/0.8 ML SYRINGE SQ SCH (09:02)
[2018-07-20] MEDS: SODIUM CHLORIDE 0.9% 1,000 ML IV SCH ×2 (09:05→20:53)
--- NOTE | 2018-07-20 12:08 | P.PN ---
Subjective Progress Note Date: 07/20/18 This is a 77-year-old male, patient of Dr. Foster. He has a known past medical history of AML which was recently diagnosed and he was scheduled to start chemotherapy on Friday with Dr. Romeo. He also has a history of AML that was diagnosed in 2012 and had undergone chemotherapy. He has a history of prostate cancer status post surgery and radiation in 1998. 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 Patient also has history of hypertension and hyperlipidemia and myocardial infarction and prior pacemaker placement. Patient presents to the emergency room with complaints of generalized weakness and a rash along the left buttocks and into the thigh. Also having some cellulitis changes in the left eye. Patient reports symptoms started on Friday. He has a temp of 101.1 white count 0.8 hemoglobin 7.8 platelets are 28. His eye is red and swollen. There is puslike drainage. He denies any vision changes is reporting him some pain in the area. He also has extensive shingle rash along the left buttocks and into the left thigh. Patient was started on acyclovir cefepime and vancomycin in the ER and was given a dose of IV Zosyn and Rocephin. Infectious disease and oncology have been consulted. Chest x-ray shows improvement in aeration. EKG shows a atrial paced rhythm. Troponin was negative. And CK level 253. Patient denies any chest pain or shortness of breath. Denies any nausea or vomiting. Denies any bowel movement changes or any new urinary symptoms. Patient admits to chronic urinary dribbling after prostate procedure. 07/17/2018 patient remains on the acyclovir and antibiotics for his herpes zoster rash and periorbital cellulitis of the left eye. Patient seen by infectious disease. Awaiting ophthalmology consult and oncology consult. Patient denies any chest pain shortness of breath any nausea or vomiting. Denies any bowel movement changes or urinary symptoms. Does not report any pain. On 07/18/2018 patient is alert confused in no apparent distress, he had episodes of hallucinations, computed tomography scan of the brain was done yesterday and did not reveal significant abnormality, he is being followed by infectious disease and oncology, neurology consultation was also requested, continue was current management, may need lumbar puncture to assess cause of confusion if not improving. On 07/19/2018 patient is more alert than yesterday no new episodes of hallucinations hemoglobin is down to 6.5 and 1 unit of red blood cell transfusion was ordered. Patient is denying any symptoms at this time there is no fever or chills no headache or dizziness no chest pain no shortness of breath no cough no nausea or vomiting no abdominal pain no diarrhea and no urinary symptoms. 07/20/2018 patient is sitting up at bedside chair. He is alert and orientated to 3. He's had no further hallucinations. Confusion has improved. He has been seen by neurology. Repeat computed tomography scan of the brain negative. Computed tomography scan of the head that had been completed earlier in the day showed an abnormality in the left middle cranial fossa on previous CT favored to be artifactual. Patient has no new complaints. He is asking when he 'll be up to go home. Patient did have low-grade temps of 99 yesterday. Fevers are showing improvement. White count 1.3. Hemoglobin 8.3 after unit of blood. Platelets 23. Per nursing staff herpes zoster rash is scabbing up and improving Objective - Vital Signs Vital signs: Vital Signs Temp 98.4 F 07/20/18 06:19 Pulse 78 07/20/18 06:19 Resp 16 07/20/18 08:00 BP 137/67 07/20/18 06:19 Pulse Ox 93 L 07/20/18 06:19 Intake & Output 07/19/18 07/20/18 07/20/18 18:59 06:59 18:59 Intake Total 360 Balance 360 Weight 99.79 kg Intake: Oral 50 Blood Product 310 Rc Irr As1 Unit 310 [id number] Other: Voiding Method Toilet # Voids 3 1 - Exam HEENT left periorbital cellulitis swelling and redness showing improvement Head normocephalic Neck supple Lungs clear to auscultation bilaterally no wheezing or crackles Heart regular rate and rhythm S1-S2, no rub or gallop Abdomen is soft nontender nondistended positive bowel sounds no hepatosplenomegaly Extremities no edema Neuro alert and orientated to 3 Skin exam patient has a herpes zoster rash along the left buttocks and thigh - Labs CBC & Chem 7: 07/20/18 07:13 07/20/18 07:13 Labs: Abnormal Lab Results - Last 24 Hours (Table) 07/19/18 07/20/1818 Range/Units 11:23 07:13 07:13 WBC 1.3 L* (3.8-10.6) k/uL RBC 2.56 L (4.30-5.90) m/uL Hgb 8.3 L D (13.0-17.5) gm/dL Hct 24.4 L (39.0-53.0) % RDW 17.9 H (11.5-15.5) % Plt Count 23 L* (150-450) k/uL Neutrophils # (Manual) 0.56 L (1.3-7.7) k/uL Lymphocytes # (Manual) 0.64 L (1.0-4.8) k/uL Chloride 109 H (98-107) mmol/L Glucose 178 H (74-99) mg/dL ALT 74 H (21-72) U/L Total Protein 5.2 L (6.3-8.2) g/dL Albumin 3.0 L (3.5-5.0) g/dL Crossmatch See Detail Microbiology - Last 24 Hours (Table) 07/16/18 12:06 Blood Culture - Preliminary Blood No Growth after 72 hours Assessment and Plan Assessment: 1. Left periorbital cellulitis. Patient started on acyclovir cefepime and vancomycin. Patient seen by infectious disease and ophthalmology 2. Herpes zoster rash along the left buttocks and thigh area continue with the acyclovir 3. Pancytopenia likely related to patient's AML and acute infections. Oncology following hemoglobin improved from 6.5-8.3 after blood transfusion 4. Recent diagnosis of acute myeloid leukemia: Follows Dr. Romeo in the office patient scheduled to start chemotherapy on Friday 5. 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 History of prostate cancer status post surgery and radiation treatment in 1998 8. 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 History of essential hypertension 10. Hyperlipidemia 11. Neutropenic Sepsis secondary to left periorbital cellulitis and herpes zoster. Present on admission. 12. Generalized weakness likely related to his acute infections. Consult physical therapy. 13. Acute metabolic encephalopathy likely contributing to patient's confusion and hallucinations due to acute infection. Patient has had computed tomography scan of the brain which were negative. Has been seen by neurology and they're concerned about a possible pseudobulbar affect. They're recommending psychiatric evaluation. However, patient's symptoms have improved. Therefore we will continue to monitor. And will hold off on psych evaluation at this point. EEG is pending. Patient does not require lumbar puncture at this time per oncology Patient's symptoms are showing improvement. Anticipate discharge hopefully within the next 1-2 days. Increase activity. Monitor for any fevers. GI prophylaxis Protonix and DVT prophylaxis SCDs I performed an examination of the patient and discussed their management with the physician Administrative Project Coordinator. I have reviewed the Physician Administrative Project Coordinator's notes and agree with the documented findings and plan of care
--- NOTE | 2018-07-20 16:36 | P.PN ---
Subjective Progress Note Date: 07/20/18 Principal diagnosis: Neutropenic Fever, AML Patient up and in bathroom during assessment. His eye has improved. Blood COunts stable. Objective - Vital Signs Vital signs: Vital Signs Temp 98.7 F 07/20/18 14:00 Pulse 82 07/20/18 14:00 Resp 20 07/20/18 14:00 BP 109/66 07/20/18 14:00 Pulse Ox 94 L 07/20/18 14:00 Intake & Output 07/19/18 07/20/18 07/20/18 18:59 06:59 18:59 Intake Total 360 Balance 360 Weight 99.79 kg Intake: Oral 50 Blood Product 310 Rc Irr As1 Unit 310 [id number] Other: Voiding Method Toilet # Voids 3 1 2 # Bowel Movements 1 - Exam - Constitutional General appearance: Present: no acute distress - EENT EENT Comment(s): left periorbital cellulitis diminished Eyes: Present: EOMI, PERRLA ENT: Present: hearing grossly normal, normal oropharynx - Respiratory Respiratory: bilateral: CTA - Cardiovascular Rhythm: regular Heart sounds: normal: S1, S2 - Gastrointestinal General gastrointestinal: Present: normal bowel sounds, soft - Integumentary Integumentary: Present: rash (scalp, left side of face, left buttock- stable, mostly scabbed. No pustules) - Musculoskeletal Musculoskeletal: Present: generalized weakness, strength equal bilaterally - Psychiatric Psychiatric: Present: A&O x's 3 - Labs CBC & Chem 7: 07/20/18 07:13 07/20/18 07:13 Labs: Abnormal Lab Results - Last 24 Hours (Table) 07/19/18 07/20/18 07/20/18 Range/Units 11:23 07:13 07:13 WBC 1.3 L* (3.8-10.6) k/uL RBC 2.56 L (4.30-5.90) m/uL Hgb 8.3 L D (13.0-17.5) gm/dL Hct 24.4 L (39.0-53.0) % RDW 17.9 H (11.5-15.5) % Plt Count 23 L* (150-450) k/uL Neutrophils # (Manual) 0.56 L (1.3-7.7) k/uL Lymphocytes # (Manual) 0.64 L (1.0-4.8) k/uL Chloride 109 H (98-107) mmol/L Glucose 178 H (74-99) mg/dL ALT 74 H (21-72) U/L Total Protein 5.2 L (6.3-8.2) g/dL Albumin 3.0 L (3.5-5.0) g/dL Crossmatch See Detail Microbiology - Last 24 Hours (Table) 07/16/18 12:06 Blood Culture - Preliminary Blood No Growth after 96 hours Assessment and Plan Plan: Assessment and Recommendations: 1. Febrile Neutropenia: Likely viral secondary to shingles. - Infectious Disease is Following - [facility] Cultures are pending, Chest X-ray Neg - T-Max on Admission 101.1, T-Max in past 24 hours 100.1 - Vancomycin and ZOsyn 2. Pancytopenia secondary to AML Normocytic anemia - Monitor and transfuse with irradiated blood products when hemoglobin is less than 7 Thrombocytopenia - Monitor and transfuse if less than 10, SDP irradiated blood products, Monitor s/s bleeding and transfuse if s/s bleeding Neutropenia - As Above - hemoglobin 8.3, PLatlets 23, WBC 1.3 today - No additional intervention needed at this time. 3. Acute Myeloid Leukemia - - Follows with Dr. Wilson - Not Candidate for aggressive Induction therapy secondary to overall performance status and cardiac co-morbidities - Plan was to begin Dacogen Friday in office while awaiting cytogenetics - Hold Plan for dacogen until acute infection improves/resolves 4. Disseminated Shingles, involving left eye: - He continues on anti-viral medication - Discussed case with Dr. Wilson and benefit of adding a colony stimulating factor outweigh the risk in the picture of an active infection. - Zarxio to continue until infection improves
--- NOTE | 2018-07-20 19:27 | P.PN ---
Subjective Progress Note Date: 07/20/18 Principal diagnosis: confusion Neurology is following a 77-year-old fusion. Patient presented to the ED for generalized weakness. Patient had been getting weaker for the previous 72 hours. Patient was also complaining of a rash in the gluteal area and into the left thigh. Patient also complained of left swollen eye. Patient denied any visual disturbance. CT brain showed no acute process. Ophthalmology seen the patient and noted can follow-up outpatient. He does have a significant cancer history. On contact, patient was alert and oriented 3, no acute distress, in the room. Patient is significantly more alert, interactive and does exhibit better mental clarity. Patient's spouse states that the patient is approximately 90% return to baseline with regard to mentation. Objective - Vital Signs Vital signs: Vital Signs Temp 98.7 F 07/20/18 14:00 Pulse 82 07/20/18 14:00 Resp 20 07/20/18 16:00 BP 109/66 07/20/18 14:00 Pulse Ox 94 L 07/20/18 14:00 Intake & Output 07/20/18 07/20/18 07/21/18 06:59 18:59 06:59 Intake Total 360 Balance 360 Weight 99.79 kg Intake: Oral 50 Blood Product 310 Rc Irr As1 Unit 310 [id number] Other: Voiding Method Toilet # Voids 1 2 # Bowel Movements 1 - Exam General appearance: Alert & oriented x3, no apparent distress. Head: Atraumatic, normocephalic, normal inspection Eyes: Well appearance, PERRLA, EOMI. Absent scleral icterus, conjunctival injection, nystagmus, periorbital swelling. Ear, nose and throat: Normal exam, mucous membranes moist Neck: Normal inspection, absent tenderness, lymphadenopathy. Respiratory: No increased work of breathing Cardiovascular: Regular rate, rhythm GI/abdominal: No guarding Extremities: Full range of motion integument Hilario: Multiple scars to the scalp, upper torso appears related to surgical excisions Neurological: cranial nerves II through XII Grossly intact no lateralizing weakness no seizure activity noted on physical exam no pronator drift and no nystagmus. equal and symmetrical in all 4 extremities Sensation: Equal and symmetrical in all 4 extremities Psychological: Mood and Affect appropriate for setting - Labs CBC & Chem 7: 07/20/18 07:13 07/20/18 07:13 Labs: Abnormal Lab Results - Last 24 Hours (Table) 07/19/18 07/20/18 07/20/18 Range/Units 11:23 07:13 07:13 WBC 1.3 L* (3.8-10.6) k/uL RBC 2.56 L (4.30-5.90) m/uL Hgb 8.3 L D (13.0-17.5) gm/dL Hct 24.4 L (39.0-53.0) % RDW 17.9 H (11.5-15.5) % Plt Count 23 L* (150-450) k/uL Neutrophils # (Manual) 0.56 L (1.3-7.7) k/uL Lymphocytes # (Manual) 0.64 L (1.0-4.8) k/uL Chloride 109 H (98-107) mmol/L Glucose 178 H (74-99) mg/dL ALT 74 H (21-72) U/L Total Protein 5.2 L (6.3-8.2) g/dL Albumin 3.0 L (3.5-5.0) g/dL Crossmatch See Detail Microbiology - Last 24 Hours (Table) 07/16/18 12:06 Blood Culture - Preliminary Blood No Growth after 96 hours Assessment and Plan (1) 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 Priority: Medium Code(s): C91.00 - ACUTE LYMPHOBLASTIC LEUKEMIA NOT HAVING ACHIEVED REMISSION SNOMED Code(s): 98764380 (2) Anemia Current Visit: Yes Status: Acute Code(s): D64.9 - ANEMIA, UNSPECIFIED SNOMED Code(s): 047891978 (3) Confusion Current Visit: Yes Status: Acute Code(s): R41.0 - DISORIENTATION, UNSPECIFIED SNOMED Code(s): 145774345 (4) Periorbital cellulitis Current Visit: Yes Status: Acute Code(s): L03.213 - PERIORBITAL CELLULITIS SNOMED Code(s): 696214106 (5) Thrombocytopenia Current Visit: Yes Status: Acute Code(s): D69.6 - THROMBOCYTOPENIA, UNSPECIFIED SNOMED Code(s): 273496967 (6) PBA (pseudobulbar affect) Current Visit: Yes Status: Acute Code(s): F48.2 - PSEUDOBULBAR AFFECT SNOMED Code(s): 26270986 Plan: Patient is known to be encephalopathic and potentially exhibiting pseudo- bulbar affect. Patient's prior CT of the brain was negative for acute process on 07/17/18. Given the patient's intermittent confusion, Repeat CT was conducted which noted an abnormal area of possible AVM or intracranial bleed. Patient was sent for CT brain with contrast and it does appear that the notation was artifact. EEG results are pending. patient's encephalopathy does appear to be relenting as noted previously. Pseudobulbar affect can be worked up in the outpatient setting. STATUS: Patient will be cleared for discharge from a neurological standpoint. Patient to contact our office within 10 days for follow up. I have discussed the plan of care with the physician prior to implementation and he agrees with the plan as implemented.
--- NOTE | 2018-07-20 20:50 | P.PN ---
Subjective Progress Note Date: 07/20/18 This is a 77-year-old male patient with significant past history of AML under the care of Dr. Romeo and scheduled to start chemotherapy on Friday. 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 Patient presents to the [facility] emergency center with complaints of generalized weakness and a rash to the left buttocks and thigh and redness to the left eye. Temperature maximum 101.1. White count is 0.8, hemoglobin 7.8 and platelet count 28. BUN 23 and creatinine 0.9, CK 253, troponin negative. Urinalysis was cloudy with 1+ protein. Blood culture and urine culture status received. Chest x-ray is stable findings. He was diagnosed with herpes zoster and periorbital cellulitis. Emergency center, patient received ceftriaxone, cefepime, Zosyn, acyclovir and vancomycin. He is currently on acyclovir IV, cefepime and vancomycin. He is status post 1-1/2 L of IV fluid bolus. There are consults in place with oncology and ophthalmology. Patient has a poor historian, oriented to person and place. He does not have insight into his disease process and is not able to provide significant information. 07/20/2018 the patient is now considerably improved. He sitting upright eating his dinner, self-feeding. His confusion has improved. The is present and is cooperating that he is nearly now at his baseline mentally. The patient voices no significant complaints from any areas of rash. The swelling and discomfort to the left eye is also improved The patient did have CAT scan 2 in the follow-up does not show evidence of any acute abnormalities. Neurology. 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 Discharge planning likely will be on rehab. Objective - Vital Signs Vital signs: Vital Signs Temp 98.7 F 07/20/18 14:00 Pulse 82 07/20/18 14:00 Resp 20 07/20/18 16:00 BP 109/66 07/20/18 14:00 Pulse Ox 94 L 07/20/18 14:00 Intake & Output 07/20/18 07/20/18 07/21/18 06:59 18:59 06:59 Intake Total 360 Balance 360 Weight 99.79 kg Intake: Oral 50 Blood Product 310 Rc Irr As1 Unit 310 [id number] Other: Voiding Method Toilet # Voids 1 2 # Bowel Movements 1 - Exam Gen: This is a 77-year-old male. Sitting upright eating his dinner HEENT: Head is atraumatic, normocephalic. Pupils equal, round. Sclerae is anicteric. Conjunctiva pale. Mucous members of the mouth are moist. The intense erythema and swelling to the left eye. Will area have now improved. Swelling to the eye is generally resolved. No difficulties with vision on approach. NECK: Supple. No JVD. No lymphadenopathy. No thyromegaly. LUNGS: Clear to auscultation. No wheezes or rhonchi. No intercostal retractions. HEART: Regular rate and rhythm. No murmur. ABDOMEN: Soft. Bowel sounds are present. No masses. No tenderness. EXTREMITIES: No pedal edema. No calf tenderness. NEUROLOGICAL: Patient is awake, alert and oriented to person and he knows he is in a hospital. Recognizes his and youngest son without difficulties. Is a rash in the left thigh and buttocks is now much improved, it is not tender and there is no drainage from the area of the prior varicella-zoster outbreak. - Labs CBC & Chem 7: 07/20/18 07:13 07/20/18 07:13 Labs: Abnormal Lab Results - Last 24 Hours (Table) 07/19/18 07/20/18 07/20/18 Range/Units 11:23 07:13 07:13 WBC 1.3 L* (3.8-10.6) k/uL RBC 2.56 L (4.30-5.90) m/uL Hgb 8.3 L D (13.0-17.5) gm/dL Hct 24.4 L (39.0-53.0) % RDW 17.9 H (11.5-15.5) % Plt Count 23 L* (150-450) k/uL Neutrophils # (Manual) 0.56 L (1.3-7.7) k/uL Lymphocytes # (Manual) 0.64 L (1.0-4.8) k/uL Chloride 109 H (98-107) mmol/L Glucose 178 H (74-99) mg/dL ALT 74 H (21-72) U/L Total Protein 5.2 L (6.3-8.2) g/dL Albumin 3.0 L (3.5-5.0) g/dL Crossmatch See Detail Microbiology - Last 24 Hours (Table) 07/16/18 12:06 Blood Culture - Preliminary Blood No Growth after 96 hours Laboratory Results WBC 1.3 k/uL (3.8-10.6) L* 07/20/18 07:13 RBC 2.56 m/uL (4.30-5.90) L 07/20/18 07:13 Hgb 8.3 gm/dL (13.0-17.5) L D 07/20/18 07:13 Hct 24.4 % (39.0-53.0) L 07/20/18 07:13 MCV 95.2 fL (80.0-100.0) 07/20/18 07:13 MCH 32.4 pg (25.0-35.0) 07/20/18 07:13 MCHC 34.0 g/dL (31.0-37.0) 07/20/18 07:13 RDW 17.9 % (11.5-15.5) H 07/20/18 07:13 Plt Count 23 k/uL (150-450) L* 07/20/18 07:13 Neutrophils % (Manual) 43 % 07/20/18 07:13 Band Neutrophils % 1 % 07/19/18 09:09 Lymphocytes % (Manual) 49 % 07/20/18 07:13 Monocytes % (Manual) 8 % 07/20/18 07:13 Eosinophils % (Manual) 1 % 07/18/18 08:20 Neutrophils # (Manual) 0.56 k/uL (1.3-7.7) L 07/20/18 07:13 Lymphocytes # (Manual) 0.64 k/uL (1.0-4.8) L 07/20/18 07:13 Monocytes # (Manual) 0.10 k/uL (0-1.0) 07/20/18 07:13 Eosinophils # (Manual) 0.01 k/uL (0-0.7) 07/18/18 08:20 Nucleated RBCs 0 /100 WBC (0-0) 07/20/18 07:13 Differential Comment 07/17/18 09:27 Manual Slide Review Performed 07/17/18 09:27 Toxic Granulation Present 07/18/18 08:20 Large Platelets Present 07/17/18 09:27 Polychromasia Present 07/19/18 09:09 Poikilocytosis Slight 07/20/18 07:13 Poikilocytosis (manual Present 07/16/18 12:06 Anisocytosis Slight 07/20/18 07:13 Macrocytosis Slight 07/20/18 07:13 Ovalocytes Present 07/18/18 08:20 PT 10.2 sec (9.0-12.0) 07/16/18 12:06 INR 1.0 (<1.2) 07/16/18 12:06 APTT 24.3 sec (22.0-30.0) 07/16/18 12:06 Sodium 139 mmol/L (137-145) 07/20/18 07:13 Potassium 4.1 mmol/L (3.5-5.1) 07/20/18 07:13 Chloride 109 mmol/L (98-107) H 07/20/18 07:13 Carbon Dioxide 22 mmol/L (22-30) 07/20/18 07:13 Anion Gap 8 mmol/L 07/20/18 07:13 BUN 19 mg/dL (9-20) 07/20/18 07:13 Creatinine 0.80 mg/dL (0.66-1.25) 07/20/18 07:13 Est GFR (CKD-EPI)AfAm >90 (>60 ml/min/1.73 sqM) 07/20/18 07:13 Est GFR (CKD-EPI)NonAf 87 (>60 ml/min/1.73 sqM) 07/20/18 07:13 Glucose 178 mg/dL (74-99) H 07/20/18 07:13 Plasma Lactic Acid Micheal 1.4 mmol/L (0.7-2.0) 07/16/18 12:06 Calcium 8.5 mg/dL (8.4-10.2) 07/20/18 07:13 Total Bilirubin 0.7 mg/dL (0.2-1.3) 07/20/18 07:13 AST 38 U/L (17-59) 07/20/18 07:13 ALT 74 U/L (21-72) H 07/20/18 07:13 Alkaline Phosphatase 42 U/L (38-126) 07/20/18 07:13 Total Creatine Kinase 253 U/L (55-170) H 07/16/18 12:06 CK-MB (CK-2) 1.2 ng/mL (0.0-2.4) 07/16/18 12:06 CK-MB (CK-2) Rel Index 0.5 07/16/18 12:06 Troponin I <0.012 ng/mL (0.000-0.034) 07/16/18 12:06 Total Protein 5.2 g/dL (6.3-8.2) L 07/20/18 07:13 Albumin 3.0 g/dL (3.5-5.0) L 07/20/18 07:13 Urine Color Yellow 07/16/18 12:06 Urine Appearance Cloudy (Clear) 07/16/18 12:06 Urine pH 5.5 (5.0-8.0) 07/16/18 12:06 Ur Specific [place] 1.022 (1.001-1.035) 07/16/18 12:06 Urine Protein 1+ (Negative) H 07/16/18 12:06 Urine Glucose (UA) Negative (Negative) 07/16/18 12:06 Urine Ketones Negative (Negative) 07/16/18 12:06 Urine Blood Negative (Negative) 07/16/18 12:06 Urine Nitrite Negative (Negative) 07/16/18 12:06 Urine Bilirubin Negative (Negative) 07/16/18 12:06 Urine Urobilinogen 2.0 mg/dL (<2.0) 07/16/18 12:06 Ur Leukocyte Esterase Negative (Negative) 07/16/18 12:06 Urine RBC 2 /hpf (0-5) 07/16/18 12:06 Urine WBC 2 /hpf (0-5) 07/16/18 12:06 Ur Squamous Epith Cells 2 /hpf (0-4) 07/16/18 12:06 Urine Mucus Many /hpf (None) H 07/16/18 12:06 Vancomycin Trough 15.2 ug/mL 07/19/18 02:03 Blood Type O Negative 07/19/18 11:23 Blood Type Recheck No 07/19/18 11:23 Antibody Screen NEGATIVE 07/19/18 11:23 Crossmatch See Detail 07/19/18 11:23 Spec Expiration Date 07/22/2018232207/19/18 11:23 Microbiology 07/16/18 12:06 Blood Blood Culture - Preliminary No Growth after 96 hours 07/16/18 12:06 Urine,Voided Urine Culture - Final Assessment and Plan (1) AML (acute myeloblastic leukemia) Narrative/Plan: The patient is examined and his is present. She relates he's had a significant decline recently. With his diagnosis of AML after his diagnosis available he has further and rapidly declined. He is evidence of the significant swelling and erythema to the periorbital area and to the eye, as well as the pruritus sella on the left buttocks area. The patient does have altered mental status and will be having a computed tomography scan done shortly. This point in time the patient is profoundly ill with his recently diagnosed AML in chemotherapy needs to be on hold given his current level of illness. Antibiotic therapy is with cefepime and vancomycin and acyclovir . We 'll need to have further input with hematology oncology, as the possible need of a lumbar puncture which is very challenging given his current clinical situation. Concern would be to leukemic involvement or potential for central nervous system infection, with concern to varicella given his current shingles 07/20/2018 reveals the patient to be markedly improved. Sitting upright feeding himself with marked improvement of his confusion. No hallucinations at this time. No great difficulties with self feeding occurred. Did not spill his drink or failed to place the food into his mouth. He is quite comfortable and is pleased that the discomfort to the face and rash left thigh and buttocks has improved with treatment. Case has been discussed with Dr. Traylor and with his improvement is not likely need a lumbar puncture and that it is not likely at all but there is leukemic involvement of his brain or varicella-zoster encephalopathy given the current marked improvement. Likely was a significantly metabolic encephalopathy at admission. The infection from the parent with cellulitis responded very well to antibiotic therapy of cefepime and vancomycin. The patient's white blood cell count remains at 1.3 and platelets are 23, did receive packed red cell infusion and his hemoglobin today 0.3. Is likely patient will rehab at discharge and would like to see him complete 7 days of cefepime and vancomycin. Given his marked improvement he may transition from intravenous acyclovir for oral Valtrex 1 g every 8 hours at the time of his transfer to complete 10 days of therapy. Current Visit: Yes Status: Acute Code(s): C92.00 - ACUTE MYELOBLASTIC LEUKEMIA, NOT HAVING ACHIEVED REMISSION SNOMED Code(s): 70811212
[2018-07-21] MEDS: ACYCLOVIR SODIUM 1,000 MG in SODIUM CHLORIDE 0.9% 250 ML IVPB SCH ×4 (00:46→23:59)
[2018-07-21] MEDS: CEFEPIME 2 GM in SODIUM CHLORIDE 0.9% 50 ML IVPB SCH ×3 (02:52→19:41)
[2018-07-21] MEDS: VANCOMYCIN 1,500 MG in SODIUM CHLORIDE 0.9% 250 ML IVPB SCH ×2 (04:09→15:45)
[2018-07-21] MEDS: SODIUM CHLORIDE 0.9% 1,000 ML IV SCH ×2 (04:10→15:51)
[2018-07-21] MEDS: amLODIPine 5 MG TAB PO SCH (07:25)
[2018-07-21] MEDS: METOPROLOL SUCCINATE (ER) 50 MG TAB.ER.24H PO SCH (07:25)
[2018-07-21] MEDS: PANTOPRAZOLE 40 MG TABLET PO SCH (07:25)
[2018-07-21] MEDS: ATORVASTATIN 10 MG TAB PO SCH (07:26)
[2018-07-21] MEDS: POTASSIUM CHLORIDE ER 20 MEQ TAB.ER PO SCH (07:26)
[2018-07-21] MEDS: VILAZODONE HCL 40 MG PO SCH ×2 (07:26→07:34)
[2018-07-21] MEDS: FILGRASTIM-SNDZ 480 MCG/0.8 ML SYRINGE SQ SCH (09:12)
[2018-07-21 14:15] LABS: ALT 68 U/L (21-72); AST 28 U/L (17-59); Alkaline Phosphatase 42 U/L (38-126); Anion Gap 8 mmol/L; Blood Urea Nitrogen 20 mg/dL (9-20); Calcium 8.6 mg/dL (8.4-10.2); Carbon Dioxide 23 mmol/L (22-30); Chloride 109 mmol/L (98-107); Glucose 98 mg/dL (74-99); Potassium 4.1 mmol/L (3.5-5.1); Sodium 140 mmol/L (137-145); Total Bilirubin 0.6 mg/dL (0.2-1.3); Total Protein 5.2 g/dL (6.3-8.2)
[2018-07-21 14:17] LABS: Anisocytosis Slight; HCT 22.7 % (39.0-53.0); HGB 7.8 gm/dL (13.0-17.5); MCH 32.4 pg (25.0-35.0); MCHC 34.4 g/dL (31.0-37.0); MCV 94.2 fL (80.0-100.0); Mean Platelet Volume 15.9; Poikilocytosis Slight; RBC 2.41 m/uL (4.30-5.90); RDW 17.6 % (11.5-15.5)
[2018-07-21 14:23] LABS: WBC 1.5 k/uL (3.8-10.6)
[2018-07-21 14:24] LABS: Platelet Count 24 k/uL (150-450)
--- NOTE | 2018-07-21 14:36 | P.PN ---
Subjective Progress Note Date: 07/21/18 This is a 77-year-old male, patient of Dr. Foster. He has a known past medical history of AML which was recently diagnosed and he was scheduled to start chemotherapy on Friday with Dr. Romeo. He also has a history of AML that was diagnosed in 2012 and had undergone chemotherapy. He has a history of prostate cancer status post surgery and radiation in 1998. 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 Patient also has history of hypertension and hyperlipidemia and myocardial infarction and prior pacemaker placement. Patient presents to the emergency room with complaints of generalized weakness and a rash along the left buttocks and into the thigh. Also having some cellulitis changes in the left eye. Patient reports symptoms started on Friday. He has a temp of 101.1 white count 0.8 hemoglobin 7.8 platelets are 28. His eye is red and swollen. There is puslike drainage. He denies any vision changes is reporting him some pain in the area. He also has extensive shingle rash along the left buttocks and into the left thigh. Patient was started on acyclovir cefepime and vancomycin in the ER and was given a dose of IV Zosyn and Rocephin. Infectious disease and oncology have been consulted. Chest x-ray shows improvement in aeration. EKG shows a atrial paced rhythm. Troponin was negative. And CK level 253. Patient denies any chest pain or shortness of breath. Denies any nausea or vomiting. Denies any bowel movement changes or any new urinary symptoms. Patient admits to chronic urinary dribbling after prostate procedure. 07/17/2018 patient remains on the acyclovir and antibiotics for his herpes zoster rash and periorbital cellulitis of the left eye. Patient seen by infectious disease. Awaiting ophthalmology consult and oncology consult. Patient denies any chest pain shortness of breath any nausea or vomiting. Denies any bowel movement changes or urinary symptoms. Does not report any pain. On 07/18/2018 patient is alert confused in no apparent distress, he had episodes of hallucinations, computed tomography scan of the brain was done yesterday and did not reveal significant abnormality, he is being followed by infectious disease and oncology, neurology consultation was also requested, continue was current management, may need lumbar puncture to assess cause of confusion if not improving. On 07/19/2018 patient is more alert than yesterday no new episodes of hallucinations hemoglobin is down to 6.5 and 1 unit of red blood cell transfusion was ordered. Patient is denying any symptoms at this time there is no fever or chills no headache or dizziness no chest pain no shortness of breath no cough no nausea or vomiting no abdominal pain no diarrhea and no urinary symptoms. 07/20/2018 patient is sitting up at bedside chair. He is alert and orientated to 3. He's had no further hallucinations. Confusion has improved. He has been seen by neurology. Repeat computed tomography scan of the brain negative. Computed tomography scan of the head that had been completed earlier in the day showed an abnormality in the left middle cranial fossa on previous CT favored to be artifactual. Patient has no new complaints. He is asking when he 'll be up to go home. Patient did have low-grade temps of 99 yesterday. Fevers are showing improvement. White count 1.3. Hemoglobin 8.3 after unit of blood. Platelets 23. Per nursing staff herpes zoster rash is scabbing up and improving 07/21/2018 patient is doing better today. He is alert and orientated to 3. Has had no further hallucinations. Infectious disease is following. The recommending cefepime and Vanco at discharge for 7 days and Valtrex for 10 days. PICC line has been ordered. demand planning manager is working on either ECF placement for antibiotics or possibly the [facility] for antibiotics. Patient denies any chest pain, shortness breath, nausea or vomiting, bowel movement changes or urinary symptoms. Patient's been cleared by neurology and infectious disease for discharge. Objective - Vital Signs Vital signs: Vital Signs Temp 98.7 F 07/21/18 05:53 Pulse 91 07/21/18 05:53 Resp 16 07/21/18 08:00 BP 133/65 07/21/18 05:53 Pulse Ox 93 L 07/21/18 05:53 Intake & Output 07/20/18 07/21/18 07/21/18 18:59 06:59 18:59 Intake Total 120 120 Balance 120 120 Intake: Oral 120 120 Other: Voiding Method Toilet Toilet Toilet # Voids 2 1 # Bowel Movements 1 - Exam HEENT left periorbital cellulitis swelling and redness showing improvement Head normocephalic Neck supple Lungs clear to auscultation bilaterally no wheezing or crackles Heart regular rate and rhythm S1-S2, no rub or gallop Abdomen is soft nontender nondistended positive bowel sounds no hepatosplenomegaly Extremities no edema Neuro alert and orientated to 3 Skin exam patient has a herpes zoster rash along the left buttocks and thigh - Labs CBC & Chem 7: 07/21/18 13:38 07/21/18 13:38 Labs: Abnormal Lab Results - Last 24 Hours (Table) 07/21/18 07/21/18 Range/Units 13:38 13:38 WBC 1.5 L* (3.8-10.6) k/uL RBC 2.41 L (4.30-5.90) m/uL Hgb 7.8 L (13.0-17.5) gm/dL Hct 22.7 L (39.0-53.0) % RDW 17.6 H (11.5-15.5) % Chloride 109 H (98-107) mmol/L Total Protein 5.2 L (6.3-8.2) g/dL Albumin 3.0 L (3.5-5.0) g/dL Microbiology - Last 24 Hours (Table) 07/16/18 12:06 Blood Culture - Preliminary Blood No Growth after 120 hours Assessment and Plan Assessment: 1. Left periorbital cellulitis. Improving greatly. Continue the cefepime and vancomycin for 7 more days per infectious disease. Patient seen by infectious disease and ophthalmology. 2. Herpes zoster rash along the left buttocks and thigh area. Rash is scabbing. Infectious diseases recommending Valtrex 1 g by mouth every 8 hours for 10 days 3. Pancytopenia likely related to patient's AML and acute infections. Oncology following hemoglobin improved from 6.5-8.3 after blood transfusion. Awaiting CBC 4. Recent diagnosis of acute myeloid leukemia: Patient started start chemotherapy after acute infection has been treated 5. 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 History of prostate cancer status post surgery and radiation treatment in 1998 8. 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 History of essential hypertension 10. Hyperlipidemia 11. Neutropenic Sepsis secondary to left periorbital cellulitis and herpes zoster. Present on admission. 12. Generalized weakness likely related to his acute infections. Consult physical therapy. 13. Acute metabolic encephalopathy likely contributing to patient's confusion and hallucinations due to acute infection. Patient has had computed tomography scan of the brain which were negative. Has been seen by neurology and they're concerned about a possible pseudobulbar affect. They're recommending psychiatric evaluation. However, patient's symptoms have improved. Therefore we will continue to monitor. And will hold off on psych evaluation at this point. EEG is pending. Patient does not require lumbar puncture at this time per oncology and infectious disease. Patient scheduled for PICC line placement for IV antibiotics. Anticipate discharge possibly tomorrow. demand planning manager is working on possible ECF placement and IV antibiotic coverage. GI prophylaxis Protonix and DVT prophylaxis SCDs I performed an examination of the patient and discussed their management with the physician Community Service Representative. I have reviewed the Physician Community Service Representative's notes and agree with the documented findings and plan of care
[2018-07-21 15:04] LABS: Band Neutrophils % 1 %; Blast Cells # (M) 0.05 k/uL (0); Eosinophils # (M) 0.02 k/uL (0-0.7); Lymphocytes # (M) 0.83 k/uL (1.0-4.8); Metamyelocytes # (M) 0.14 k/uL (0); Metamyelocytes % 9 %; Monocytes # (M) 0.09 k/uL (0-1.0); Myelocytes # (M) 0.02 k/uL (0); Myelocytes % 1 %; Neutrophils % (M) 27 %; Nucleated Red Blood Cells 0 /100 WBC (0-0); Polychromasia Present; Total Cells Counted 200
--- NOTE | 2018-07-21 15:40 | P.PN ---
Subjective Progress Note Date: 07/21/18 Principal diagnosis: Neutropenic Fever, AML Seen and examined in follow-up today, he overall is doing better. Objective - Vital Signs Vital signs: Vital Signs Temp 99.4 F 07/21/18 14:57 Pulse 86 07/21/18 14:57 Resp 19 07/21/18 14:57 BP 133/72 07/21/18 14:57 Pulse Ox 95 07/21/18 14:57 Intake & Output 07/20/18 07/21/18 07/21/18 18:59 06:59 18:59 Intake Total 120 360 Balance 120 360 Intake: Oral 120 360 Other: Voiding Method Toilet Toilet Toilet # Voids 2 1 1 # Bowel Movements 1 - Exam - Constitutional General appearance: Present: no acute distress - EENT EENT Comment(s): left periorbital cellulitis diminished Eyes: Present: EOMI, PERRLA ENT: Present: hearing grossly normal, normal oropharynx - Respiratory Respiratory: bilateral: CTA - Cardiovascular Rhythm: regular Heart sounds: normal: S1, S2 - Gastrointestinal General gastrointestinal: Present: normal bowel sounds, soft - Integumentary Integumentary: Present: rash (scalp, left side of face, left buttock- stable, mostly scabbed. No pustules) - Musculoskeletal Musculoskeletal: Present: generalized weakness, strength equal bilaterally - Psychiatric Psychiatric: Present: A&O x's 3 - Labs CBC & Chem 7: 07/21/18 13:38 07/21/18 13:38 Labs: Abnormal Lab Results - Last 24 Hours (Table) 07/21/18 07/21/18 Range/Units 13:38 13:38 WBC 1.5 L* (3.8-10.6) k/uL RBC 2.41 L (4.30-5.90) m/uL Hgb 7.8 L (13.0-17.5) gm/dL Hct 22.7 L (39.0-53.0) % RDW 17.6 H (11.5-15.5) % Plt Count 24 L* (150-450) k/uL Neutrophils # (Manual) 0.40 L (1.3-7.7) k/uL Lymphocytes # (Manual) 0.83 L (1.0-4.8) k/uL Metamyelocytes # (Man) 0.14 H (0) k/uL Myelocytes # (Manual) 0.02 H (0) k/uL Blast Cells # (Man) 0.05 H (0) k/uL Chloride 109 H (98-107) mmol/L Total Protein 5.2 L (6.3-8.2) g/dL Albumin 3.0 L (3.5-5.0) g/dL Microbiology - Last 24 Hours (Table) 07/16/18 12:06 Blood Culture - Preliminary Blood No Growth after 120 hours Assessment and Plan Plan: Assessment and Recommendations: 1. Febrile Neutropenia: Likely viral secondary to shingles. - Infectious Disease is Following - Resolved 2. 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 3. Acute Myeloid Leukemia - - Follows with Dr. Wilson - Not Candidate for aggressive Induction therapy secondary to overall performance status and cardiac co-morbidities - Plan was to begin Dacogen Friday in office while awaiting cytogenetics - Hold Plan for dacogen until acute infection improves/resolves 4. Shingles, involving left eye: - He continues on anti-viral medication - Discussed case with Dr. Wilson and benefit of adding a colony stimulating factor outweigh the risk in the picture of an active infection. - Zarxio to continue until infection improves while inpatient and will follow- up outpatient Ok for discharge from oncology standpoint, will be seen in office. No need to continue Zarxio unless febrile again.
--- NOTE | 2018-07-21 20:14 | EEG ---
ELECTROENCEPHALOGRAM REPORT DATE OF SERVICE: 07/21/2018 REASON FOR TESTING: Altered mental status. DESCRIPTION OF THE PROCEDURE: This EEG was performed using a 21-channel digital electroencephalograph, following international 10-20 system. DESCRIPTION OF THE RECORDING: From the beginning of the tracing, and with the patient's eyes closed, the background rhythm was mostly consisting of 7 Hz theta frequency in the posterior occipital lead. No obvious asymmetry is seen. Photic stimulation was performed with no driving response seen. No pathological waves were elicited. Occasional movement and muscle artifacts are seen. Hyperventilation was not performed. The patient remains awake throughout the tracing. No epileptiform discharges were seen. His EKG lead showed a regular rate and rhythm. INTERPRETATION: This awake EEG is abnormal due to the presence of generalized slowing of the background rhythm, mostly in the theta range. This is consistent with mild encephalopathy. No epileptiform discharges were seen. The absence of epileptiform discharges does not rule out the diagnosis of epilepsy; therefore clinical correlation is recommended. PANFILO / KUMAR: [id number] /
[2018-07-22] MEDS: SODIUM CHLORIDE 0.9% 1,000 ML IV SCH ×3 (00:02→21:00)
[2018-07-22] MEDS: CEFEPIME 2 GM in SODIUM CHLORIDE 0.9% 50 ML IVPB SCH ×3 (03:42→19:31)
[2018-07-22] MEDS: VANCOMYCIN 1,500 MG in SODIUM CHLORIDE 0.9% 250 ML IVPB SCH ×2 (05:07→15:21)
[2018-07-22 08:31] LABS: Anisocytosis Slight; HCT 22.4 % (39.0-53.0); HGB 7.8 gm/dL (13.0-17.5); MCH 32.4 pg (25.0-35.0); MCV 92.4 fL (80.0-100.0); Mean Platelet Volume 13.8; Poikilocytosis Slight; RBC 2.42 m/uL (4.30-5.90); RDW 17.2 % (11.5-15.5); WBC 2.4 k/uL (3.8-10.6)
[2018-07-22 08:41] LABS: Platelet Count 30 k/uL (150-450)
[2018-07-22 08:52] LABS: ALT 60 U/L (21-72); AST 24 U/L (17-59); Albumin 3.2 g/dL (3.5-5.0); Alkaline Phosphatase 45 U/L (38-126); Anion Gap 11 mmol/L; Blood Urea Nitrogen 16 mg/dL (9-20); Calcium 8.5 mg/dL (8.4-10.2); Carbon Dioxide 23 mmol/L (22-30); Chloride 104 mmol/L (98-107); Glucose 101 mg/dL (74-99); Potassium 3.6 mmol/L (3.5-5.1); Sodium 138 mmol/L (137-145); Total Bilirubin 0.7 mg/dL (0.2-1.3); Total Protein 5.5 g/dL (6.3-8.2)
[2018-07-22] MEDS ORDERED: LIDOCAINE 1% INJ 10MG/ML (20 ML MDV) ONE (09:17)
[2018-07-22] MEDS ORDERED: LIDOCAINE 1% (PF) 10MG/ML VIAL SQ ONE (09:27)
[2018-07-22 10:35] LABS: Band Neutrophils % 1 %; Blast Cells # (M) 0.43 k/uL (0); Eosinophils # (M) 0.02 k/uL (0-0.7); Lymphocytes # (M) 1.32 k/uL (1.0-4.8); Metamyelocytes # (M) 0.05 k/uL (0); Metamyelocytes % 2 %; Monocytes # (M) 0.24 k/uL (0-1.0); Myelocytes # (M) 0.05 k/uL (0); Myelocytes % 2 %; Neutrophils % (M) 14 %; Nucleated Red Blood Cells 1 /100 WBC (0-0); Total Cells Counted 200
[2018-07-22] MEDS: PANTOPRAZOLE 40 MG TABLET PO SCH (10:51)
[2018-07-22] MEDS: POTASSIUM CHLORIDE ER 20 MEQ TAB.ER PO SCH (10:51)
[2018-07-22] MEDS: ATORVASTATIN 10 MG TAB PO SCH (10:51)
[2018-07-22] MEDS: amLODIPine 5 MG TAB PO SCH (10:52)
[2018-07-22] MEDS: VILAZODONE HCL 40 MG PO SCH (10:52)
[2018-07-22] MEDS: ACYCLOVIR SODIUM 1,000 MG in SODIUM CHLORIDE 0.9% 250 ML IVPB SCH ×3 (10:53→23:40)
[2018-07-22] MEDS: METOPROLOL SUCCINATE (ER) 50 MG TAB.ER.24H PO SCH (10:55)
--- NOTE | 2018-07-22 11:30 | IR ---
EXAMINATION TYPE: IR cvc insert >=5 years DATE OF EXAM: 07/22/2018 COMPARISON: NONE CLINICAL HISTORY: Fever, infection, Needs long-term intravenous access for antibiotics. PROCEDURE: After informed consent, the skin overlying the right basilic vein was localized with ultrasound and n oted to be compressible and patent. An ultrasound image was obtained and submitted on the patient's chart. The overlying skin was prepped and draped and Lidocaine was used for local anesthesia. A ski n juan alberto was made with a scalpel. Access was gained to the vein under ultrasound guidance with a 21 ga uge needle and a 0.018 inch wire was advanced. Access site was dilated with Peel-Away sheath and cat heter tailored to the appropriate length and advanced such that the distal tip is at the cavoatrial j unction. Spot image was obtained verifying placement. Catheter was fixed to the skin and a sterile dressing was placed following hemostasis. Catheter was aspirated and flushed with saline. Patient w as discharged in stable condition without complication. Maximal barrier technique is utilized. Ultra sound image is documented on the chart. Ultrasound used with sterile technique. Fluoro time and fluoroscopic images submitted to document procedure: 0.5 minutes fluoroscopy time, 57 intraoperative images document the procedure IMPRESSION: STATUS POST ULTRASOUND AND FLUOROSCOPIC GUIDED PICC LINE PLACEMENT, READY FOR USE. THIS PROCEDURE WAS PERFORMED BY THE UNDERSIGNED.
[2018-07-22] MEDS: FILGRASTIM-SNDZ 480 MCG/0.8 ML SYRINGE SQ SCH (11:39)
--- NOTE | 2018-07-22 12:47 | P.PN ---
Subjective Progress Note Date: 07/22/18 Principal diagnosis: Neutropenic Fever, AML Seen and examined in follow-up today, he overall is doing better. They are planning on discharge to rehab and Outpatient IV antibiotics per Infectious disease Objective - Vital Signs Vital signs: Vital Signs Temp 98.2 F 07/22/18 08:00 Pulse 85 07/22/18 08:00 Resp 18 07/22/18 08:00 BP 152/87 07/22/18 08:00 Pulse Ox 96 07/22/18 08:00 Intake & Output 07/21/18 07/22/18 07/22/18 18:59 06:59 18:59 Intake Total 360 Balance 360 Intake: Oral 360 Other: Voiding Method Toilet Toilet # Voids 1 3 2 # Bowel Movements 1 - Exam - Constitutional General appearance: Present: no acute distress - EENT EENT Comment(s): left periorbital cellulitis diminished Eyes: Present: EOMI, PERRLA ENT: Present: hearing grossly normal, normal oropharynx - Respiratory Respiratory: bilateral: CTA - Cardiovascular Rhythm: regular Heart sounds: normal: S1, S2 - Gastrointestinal General gastrointestinal: Present: normal bowel sounds, soft - Integumentary Integumentary: Present: rash (scalp, left side of face, left buttock- stable, mostly scabbed. No pustules) - Musculoskeletal Musculoskeletal: Present: generalized weakness, strength equal bilaterally - Psychiatric Psychiatric: Present: A&O x's 3 - Labs CBC & Chem 7: 07/22/18 08:03 07/22/18 08:03 Labs: Abnormal Lab Results - Last 24 Hours (Table) 07/21/18 07/21/18 07/22/18 Range/Units 13:38 13:38 08:03 WBC 1.5 L* 2.4 L (3.8-10.6) k/uL RBC 2.41 L 2.42 L (4.30-5.90) m/uL Hgb 7.8 L 7.8 L (13.0-17.5) gm/dL Hct 22.7 L 22.4 L (39.0-53.0) % RDW 17.6 H 17.2 H (11.5-15.5) % Plt Count 24 L* 30 L* (150-450) k/uL Neutrophils # (Manual) 0.40 L 0.30 L (1.3-7.7) k/uL Lymphocytes # (Manual) 0.83 L (1.0-4.8) k/uL Metamyelocytes # (Man) 0.14 H 0.05 H (0) k/uL Myelocytes # (Manual) 0.02 H 0.05 H (0) k/uL Blast Cells # (Man) 0.05 H 0.43 H (0) k/uL Nucleated RBCs 1 H (0-0) /100 WBC Chloride 109 H (98-107) mmol/L Glucose (74-99) mg/dL Total Protein 5.2 L (6.3-8.2) g/dL Albumin 3.0 L (3.5-5.0) g/dL 07/22/18 Range/Units 08:03 WBC (3.8-10.6) k/uL RBC (4.30-5.90) m/uL Hgb (13.0-17.5) gm/dL Hct (39.0-53.0) % RDW (11.5-15.5) % Plt Count (150-450) k/uL Neutrophils # (Manual) (1.3-7.7) k/uL Lymphocytes # (Manual) (1.0-4.8) k/uL Metamyelocytes # (Man) (0) k/uL Myelocytes # (Manual) (0) k/uL Blast Cells # (Man) (0) k/uL Nucleated RBCs (0-0) /100 WBC Chloride (98-107) mmol/L Glucose 101 H (74-99) mg/dL Total Protein 5.5 L (6.3-8.2) g/dL Albumin 3.2 L (3.5-5.0) g/dL Microbiology - Last 24 Hours (Table) 07/16/18 12:06 Blood Culture - Preliminary Blood No Growth after 120 hours Assessment and Plan Plan: Assessment and Recommendations: 1. Febrile Neutropenia: Likely viral secondary to shingles. - Infectious Disease is Following - Resolved 2. 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 3. Acute Myeloid Leukemia - - Follows with Dr. Wilson - Not Candidate for aggressive Induction therapy secondary to overall performance status and cardiac co-morbidities - Plan was to begin Dacogen Friday in office while awaiting cytogenetics - Hold Plan for dacogen until acute infection improves/resolves 4. Shingles, involving left eye: - He continues on anti-viral medication - Discussed case with Dr. Wilson and benefit of adding a colony stimulating factor outweigh the risk in the picture of an active infection. - Zarxio to continue until infection improves while inpatient and will follow- up outpatient Ok for discharge from oncology standpoint, will be seen in office. No need to continue Zarxio unless febrile again. - Since patient will be discharged to Sub-Acute Rehab on antibiotics will hold on Zarxio. After Vancomycyn and Cefepime course are completed per ID we recommend to continue on prophylaxic antibiotics with cipro, prophylaxis acyclovir dose (after treatment course completed), and anti-fungal such as diflucan. He will follow-up with Dr. Wilson in office after released from rehab and plan to re-visit when we will start his dacogen treatment with AML. - He will need to continue neutropenia precautions while in Rehabilitation, he is a high risk for recurrent infections which could be very dangerous to him. - Patient will require remediation about this. states understanding.
--- NOTE | 2018-07-22 14:00 | P.DS ---
Providers Date of admission: 07/16/18 13:46 Expected date of discharge: 07/22/18 Attending physician: Gilma Oropeza Consults: 07/16/18 13:46 Consult Physician Urgent Consulting Provider: Kapil Gaines Consult Reason/Comments: Left eye chemosis and periorbital cellulitis Do you want consulting provider notified?: Yes Consult Physician Urgent Consulting Provider: Dennis Min Consult Reason/Comments: Fever with unknown source Do you want consulting provider notified?: Yes Consult Physician Urgent Consulting Provider: Jazz Wilson Consult Reason/Comments: AML Do you want consulting provider notified?: Yes 07/18/18 14:10 Consult Physician Routine Consulting Provider: Yudith Posada Consult Reason/Comments: confusion Do you want consulting provider notified?: Yes Primary care physician: [facility] Course: Discharge diagnosis 1. Left periorbital cellulitis. Improving greatly. Continue the cefepime and vancomycin for 7 more days per infectious disease. Patient seen by infectious disease and ophthalmology. PICC line has been placed. Patient will be DC'd to F facility with vancomycin and cefepime per infectious disease 2. Herpes zoster rash along the left buttocks and thigh area. Rash is scabbing. Infectious diseases recommending Valtrex 1 g by mouth every 8 hours for 10 days. Patient DC'd on Valtrex 1 g every 8 hours per infectious 3. Pancytopenia likely related to patient's AML and acute infections. Oncology following hemoglobin improved from 6.5-8.3 after blood transfusion. Hemoglobin 7.8 and platelets 30. No additional intervention needed at this time per oncology. Patient located for discharge from my standpoint. 4. Recent diagnosis of acute myeloid leukemia: Patient started start chemotherapy after acute infection has been treated 5. 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 History of prostate cancer status post surgery and radiation treatment in 1998 8. 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 History of essential hypertension 10. Hyperlipidemia 11. Neutropenic Sepsis secondary to left periorbital cellulitis and herpes zoster. Present on admission. No need to continue Zaroxio unless febrile again per oncology 12. Generalized weakness likely related to his acute infections. Consult physical therapy. 13. Acute metabolic encephalopathy likely contributing to patient's confusion and hallucinations due to acute infection. Patient has had computed tomography scan of the brain which were negative. Has been seen by neurology and they're concerned about a possible pseudobulbar affect. They're recommending psychiatric evaluation. However, patient's symptoms have improved. Therefore we will continue to monitor. And will hold off on psych evaluation at this point. EEG is pending. Patient does not require lumbar puncture at this time per oncology and infectious disease. EKG completed showing generalized slowing of the background rhythm, mostly in the theta range. This consistent with mild encephalopathy. Patient has been cleared for discharge from a neurological standpoint. Hospital course This is a 77-year-old male, patient of Dr. Foster. He has a known past medical history of AML which was recently diagnosed and he was scheduled to start chemotherapy on Friday with Dr. Romeo. He also has a history of AML that was diagnosed in 2012 and had undergone chemotherapy. He has a history of prostate cancer status post surgery and radiation in 1998. 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 Patient also has history of hypertension and hyperlipidemia and myocardial infarction and prior pacemaker placement. Patient presents to the emergency room with complaints of generalized weakness and a rash along the left buttocks and into the thigh. Also having some cellulitis changes in the left eye. Patient reports symptoms started on Friday. He has a temp of 101.1 white count 0.8 hemoglobin 7.8 platelets are 28. His eye is red and swollen. There is puslike drainage. He denies any vision changes is reporting him some pain in the area. He also has extensive shingle rash along the left buttocks and into the left thigh. Patient was started on acyclovir cefepime and vancomycin in the ER and was given a dose of IV Zosyn and Rocephin. Infectious disease and oncology have been consulted. Chest x-ray shows improvement in aeration. EKG shows a atrial paced rhythm. Troponin was negative. And CK level 253. Patient denies any chest pain or shortness of breath. Denies any nausea or vomiting. Denies any bowel movement changes or any new urinary symptoms. Patient admits to chronic urinary dribbling after prostate procedure. 07/17/2018 patient remains on the acyclovir and antibiotics for his herpes zoster rash and periorbital cellulitis of the left eye. Patient seen by infectious disease. Awaiting ophthalmology consult and oncology consult. Patient denies any chest pain shortness of breath any nausea or vomiting. Denies any bowel movement changes or urinary symptoms. Does not report any pain. On 07/18/2018 patient is alert confused in no apparent distress, he had episodes of hallucinations, computed tomography scan of the brain was done yesterday and did not reveal significant abnormality, he is being followed by infectious disease and oncology, neurology consultation was also requested, continue was current management, may need lumbar puncture to assess cause of confusion if not improving. On 07/19/2018 patient is more alert than yesterday no new episodes of hallucinations hemoglobin is down to 6.5 and 1 unit of red blood cell transfusion was ordered. Patient is denying any symptoms at this time there is no fever or chills no headache or dizziness no chest pain no shortness of breath no cough no nausea or vomiting no abdominal pain no diarrhea and no urinary symptoms. 07/20/2018 patient is sitting up at bedside chair. He is alert and orientated to 3. He's had no further hallucinations. Confusion has improved. He has been seen by neurology. Repeat computed tomography scan of the brain negative. Computed tomography scan of the head that had been completed earlier in the day showed an abnormality in the left middle cranial fossa on previous CT favored to be artifactual. Patient has no new complaints. He is asking when he 'll be up to go home. Patient did have low-grade temps of 99 yesterday. Fevers are showing improvement. White count 1.3. Hemoglobin 8.3 after unit of blood. Platelets 23. Per nursing staff herpes zoster rash is scabbing up and improving 07/21/2018 patient is doing better today. He is alert and orientated to 3. Has had no further hallucinations. Infectious disease is following. The recommending cefepime and Vanco at discharge for 7 days and Valtrex for 10 days. PICC line has been ordered. grooming salon manager is working on either ECF placement for antibiotics or possibly the [facility] for antibiotics. Patient denies any chest pain, shortness breath, nausea or vomiting, bowel movement changes or urinary symptoms. Patient's been cleared by neurology and infectious disease for discharge. On 07/22/2018 patient has been cleared for discharge from infectious disease and oncology standpoint. Patient does have a PICC line in place. Patient planning to go to ECF facility [facility]. Patient will be discharged on cefepime and Vanco along with Valtrex per infectious disease. Patient denies chest pain or shortness of breath. Denies nausea vomiting or diarrhea. Denies any urinary symptoms. Patient being discharged to [facility]. Patient to be followed by Dr. Oropeza. I performed an examination of the patient and discussed their management with the Nurse Practitioner. I have reviewed the Nurse Practitioner's notes and agree with the documented findings and plan of care Patient Condition at Discharge: Stable Plan - Discharge Summary Discharge Rx Participant: Yes New Discharge Prescriptions: New valACYclovir HCL [Valtrex] 1,000 mg PO Q8HR #30 tab Vancomycin 1,500 mg IVPB Q12H #14 vial Cefepime HCl [Maxipime] 2 gm IV Q8H #21 vial No Action Furosemide [Lasix] 20 mg PO DAILY PRN PRN Reason: swelling amLODIPine [Norvasc] 5 mg PO DAILY oxyCODONE-APAP 5-325MG [Percocet 5-325 mg] 1 tab PO Q8HR PRN PRN Reason: Pain Potassium Chloride [Klor-Con 20] 20 meq PO DAILY Vilazodone HCl [Viibryd] 40 mg PO DAILY Rosuvastatin Calcium 5 mg PO DAILY Metoprolol Succinate [Toprol Xl] 50 mg PO DAILY Discharge Medication List Furosemide [Lasix] 20 mg PO DAILY PRN 12/06/14 [History] amLODIPine [Norvasc] 5 mg PO DAILY 06/30/18 [History] oxyCODONE-APAP 5-325MG [Percocet 5-325 mg] 1 tab PO Q8HR PRN 07/03/18 [History] Metoprolol Succinate [Toprol Xl] 50 mg PO DAILY 07/16/18 [History] Potassium Chloride [Klor-Con 20] 20 meq PO DAILY 07/16/18 [History] Rosuvastatin Calcium 5 mg PO DAILY 07/16/18 [History] Vilazodone HCl [Viibryd] 40 mg PO DAILY 07/16/18 [History] Cefepime HCl [Maxipime] 2 gm IV Q8H #21 vial 07/22/18 [Rx] Vancomycin 1,500 mg IVPB Q12H #14 vial 07/22/18 [Rx] valACYclovir HCL [Valtrex] 1,000 mg PO Q8HR #30 tab 07/22/18 [Rx] Follow up Appointment(s)/Referral(s): Boris Soto NPC [REFERRING] - 2 Weeks Nola Goldberg DO [Primary Care Provider] - 1-2 days Dennis Min MD [STAFF PHYSICIAN] - 2 Weeks [facility], [NON-STAFF] - Patient Instructions/Handouts: Acute Myeloid Leukemia (DC), Immune Thrombocytopenia (GEN), Anemia (DC)
[2018-07-22] MEDS: ACETAMINOPHEN TAB 325 MG TAB PO PRN (23:44)
--- NOTE | 2018-07-22 23:55 | P.PN ---
Subjective Progress Note Date: 07/22/18 This is a 77-year-old male patient with significant past history of AML under the care of Dr. Romeo and scheduled to start chemotherapy on Friday. 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 Patient presents to the [facility] emergency center with complaints of generalized weakness and a rash to the left buttocks and thigh and redness to the left eye. Temperature maximum 101.1. White count is 0.8, hemoglobin 7.8 and platelet count 28. BUN 23 and creatinine 0.9, CK 253, troponin negative. Urinalysis was cloudy with 1+ protein. Blood culture and urine culture status received. Chest x-ray is stable findings. He was diagnosed with herpes zoster and periorbital cellulitis. Emergency center, patient received ceftriaxone, cefepime, Zosyn, acyclovir and vancomycin. He is currently on acyclovir IV, cefepime and vancomycin. He is status post 1-1/2 L of IV fluid bolus. There are consults in place with oncology and ophthalmology. Patient has a poor historian, oriented to person and place. He does not have insight into his disease process and is not able to provide significant information. 07/20/2018 the patient is now considerably improved. He sitting upright eating his dinner, self-feeding. His confusion has improved. The is present and is cooperating that he is nearly now at his baseline mentally. The patient voices no significant complaints from any areas of rash. The swelling and discomfort to the left eye is also improved The patient did have CAT scan 2 in the follow-up does not show evidence of any acute abnormalities. Neurology. 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 Discharge planning likely will be on rehab. 07/22/2018 patient's doing well this time. He is eating food modestly well. He knows my name, that he's had [place], he will be transferred to [facility] rehab and that his is off having a mammogram. There was some concerns to confusion seems to be doing very well at this time. Objective - Vital Signs Vital signs: Vital Signs Temp 98.2 F 07/22/18 08:00 Pulse 81 07/22/18 16:17 Resp 20 07/22/18 16:17 BP 133/72 07/22/18 16:17 Pulse Ox 96 07/22/18 08:00 Intake & Output 07/22/18 07/22/18 07/23/18 06:59 18:59 06:59 Intake Total 200 Balance 200 Intake: Oral 200 Other: Voiding Method Toilet Toilet Incontinent # Voids 3 1 1 # Bowel Movements 2 - Exam Gen: This is a 77-year-old male. Sitting upright eating his dinner HEENT: Head is atraumatic, normocephalic. Pupils equal, round. Sclerae is anicteric. Conjunctiva pale. Mucous members of the mouth are moist. The intense erythema and swelling to the left eye. Will area have now improved. Swelling to the eye is generally resolved. No difficulties with vision on approach. NECK: Supple. No JVD. No lymphadenopathy. No thyromegaly. LUNGS: Clear to auscultation. No wheezes or rhonchi. No intercostal retractions. HEART: Regular rate and rhythm. No murmur. ABDOMEN: Soft. Bowel sounds are present. No masses. No tenderness. EXTREMITIES: No pedal edema. No calf tenderness. NEUROLOGICAL: Patient is awake, alert and oriented to person and he knows he is in a hospital. Recognizes his and youngest son without difficulties. Is a rash in the left thigh and buttocks is now much improved, it is not tender and there is no drainage from the area of the prior varicella-zoster outbreak. - Labs CBC & Chem 7: 07/22/18 08:03 07/22/18 08:03 Labs: Abnormal Lab Results - Last 24 Hours (Table) 07/22/18 07/22/18 Range/Units 08:03 08:03 WBC 2.4 L (3.8-10.6) k/uL RBC 2.42 L (4.30-5.90) m/uL Hgb 7.8 L (13.0-17.5) gm/dL Hct 22.4 L (39.0-53.0) % RDW 17.2 H (11.5-15.5) % Plt Count 30 L* (150-450) k/uL Neutrophils # (Manual) 0.30 L (1.3-7.7) k/uL Metamyelocytes # (Man) 0.05 H (0) k/uL Myelocytes # (Manual) 0.05 H (0) k/uL Blast Cells # (Man) 0.43 H (0) k/uL Nucleated RBCs 1 H (0-0) /100 WBC Glucose 101 H (74-99) mg/dL Total Protein 5.5 L (6.3-8.2) g/dL Albumin 3.2 L (3.5-5.0) g/dL Microbiology - Last 24 Hours (Table) 07/16/18 12:06 Blood Culture - Final Blood No Growth after 144 hours Laboratory Results WBC 2.4 k/uL (3.8-10.6) L 07/22/18 08:03 RBC 2.42 m/uL (4.30-5.90) L 07/22/18 08:03 Hgb 7.8 gm/dL (13.0-17.5) L 07/22/18 08:03 Hct 22.4 % (39.0-53.0) L 07/22/18 08:03 MCV 92.4 fL (80.0-100.0) 07/22/18 08:03 MCH 32.4 pg (25.0-35.0) 07/22/18 08:03 MCHC 35.0 g/dL (31.0-37.0) 07/22/18 08:03 RDW 17.2 % (11.5-15.5) H 07/22/18 08:03 Plt Count 30 k/uL (150-450) L* 07/22/18 08:03 Neutrophils % (Manual) 14 % 07/22/18 08:03 Band Neutrophils % 1 % 07/22/18 08:03 Lymphocytes % (Manual) 55 % 07/22/18 08:03 Monocytes % (Manual) 10 % 07/22/18 08:03 Eosinophils % (Manual) 1 % 07/22/18 08:03 Metamyelocytes % 2 % 07/22/18 08:03 Myelocytes % 2 % 07/22/18 08:03 Blast Cells % 18 % 07/22/18 08:03 Neutrophils # (Manual) 0.30 k/uL (1.3-7.7) L 07/22/18 08:03 Lymphocytes # (Manual) 1.32 k/uL (1.0-4.8) 07/22/18 08:03 Monocytes # (Manual) 0.24 k/uL (0-1.0) 07/22/18 08:03 Eosinophils # (Manual) 0.02 k/uL (0-0.7) 07/22/18 08:03 Metamyelocytes # (Man) 0.05 k/uL (0) H 07/22/18 08:03 Myelocytes # (Manual) 0.05 k/uL (0) H 07/22/18 08:03 Blast Cells # (Man) 0.43 k/uL (0) H 07/22/18 08:03 Nucleated RBCs 1 /100 WBC (0-0) H 07/22/18 08:03 Differential Comment 07/17/18 09:27 Manual Slide Review Performed 07/22/18 08:03 Toxic Granulation Present 07/18/18 08:20 Large Platelets Present 07/17/18 09:27 Polychromasia Present 07/21/18 13:38 Poikilocytosis Slight 07/22/18 08:03 Poikilocytosis (manual Present 07/16/18 12:06 Anisocytosis Slight 07/22/18 08:03 Macrocytosis Slight 07/20/18 07:13 Ovalocytes Present 07/18/18 08:20 PT 10.2 sec (9.0-12.0) 07/16/18 12:06 INR 1.0 (<1.2) 07/16/18 12:06 APTT 24.3 sec (22.0-30.0) 07/16/18 12:06 Sodium 138 mmol/L (137-145) 07/22/18 08:03 Potassium 3.6 mmol/L (3.5-5.1) 07/22/18 08:03 Chloride 104 mmol/L (98-107) 07/22/18 08:03 Carbon Dioxide 23 mmol/L (22-30) 07/22/18 08:03 Anion Gap 11 mmol/L 07/22/18 08:03 BUN 16 mg/dL (9-20) 07/22/18 08:03 Creatinine 0.71 mg/dL (0.66-1.25) 07/22/18 08:03 Est GFR (CKD-EPI)AfAm >90 (>60 ml/min/1.73 sqM) 07/22/18 08:03 Est GFR (CKD-EPI)NonAf >90 (>60 ml/min/1.73 sqM) 07/22/18 08:03 Glucose 101 mg/dL (74-99) H 07/22/18 08:03 Plasma Lactic Acid Micheal 1.4 mmol/L (0.7-2.0) 07/16/18 12:06 Calcium 8.5 mg/dL (8.4-10.2) 07/22/18 08:03 Total Bilirubin 0.7 mg/dL (0.2-1.3) 07/22/18 08:03 AST 24 U/L (17-59) 07/22/18 08:03 ALT 60 U/L (21-72) 07/22/18 08:03 Alkaline Phosphatase 45 U/L (38-126) 07/22/18 08:03 Total Creatine Kinase 253 U/L (55-170) H 07/16/18 12:06 CK-MB (CK-2) 1.2 ng/mL (0.0-2.4) 07/16/18 12:06 CK-MB (CK-2) Rel Index 0.5 07/16/18 12:06 Troponin I <0.012 ng/mL (0.000-0.034) 07/16/18 12:06 Total Protein 5.5 g/dL (6.3-8.2) L 07/22/18 08:03 Albumin 3.2 g/dL (3.5-5.0) L 07/22/18 08:03 Urine Color Yellow 07/16/18 12:06 Urine Appearance Cloudy (Clear) 07/16/18 12:06 Urine pH 5.5 (5.0-8.0) 07/16/18 12:06 Ur Specific [place] 1.022 (1.001-1.035) 07/16/18 12:06 Urine Protein 1+ (Negative) H 07/16/18 12:06 Urine Glucose (UA) Negative (Negative) 07/16/18 12:06 Urine Ketones Negative (Negative) 07/16/18 12:06 Urine Blood Negative (Negative) 07/16/18 12:06 Urine Nitrite Negative (Negative) 07/16/18 12:06 Urine Bilirubin Negative (Negative) 07/16/18 12:06 Urine Urobilinogen 2.0 mg/dL (<2.0) 07/16/18 12:06 Ur Leukocyte Esterase Negative (Negative) 07/16/18 12:06 Urine RBC 2 /hpf (0-5) 07/16/18 12:06 Urine WBC 2 /hpf (0-5) 07/16/18 12:06 Ur Squamous Epith Cells 2 /hpf (0-4) 07/16/18 12:06 Urine Mucus Many /hpf (None) H 07/16/18 12:06 Vancomycin Trough 15.2 ug/mL 07/19/18 02:03 Blood Type O Negative 07/19/18 11:23 Blood Type Recheck No 07/19/18 11:23 Antibody Screen NEGATIVE 07/19/18 11:23 Crossmatch See Detail 07/19/18 11:23 Spec Expiration Date 07/22/2018232207/19/18 11:23 Microbiology 07/16/18 12:06 Blood Blood Culture - Final No Growth after 144 hours 07/16/18 12:06 Urine,Voided Urine Culture - Final Assessment and Plan (1) AML (acute myeloblastic leukemia) Narrative/Plan: The patient is examined and his is present. She relates he's had a significant decline recently. With his diagnosis of AML after his diagnosis available he has further and rapidly declined. He is evidence of the significant swelling and erythema to the periorbital area and to the eye, as well as the pruritus sella on the left buttocks area. The patient does have altered mental status and will be having a computed tomography scan done shortly. This point in time the patient is profoundly ill with his recently diagnosed AML in chemotherapy needs to be on hold given his current level of illness. Antibiotic therapy is with cefepime and vancomycin and acyclovir . We 'll need to have further input with hematology oncology, as the possible need of a lumbar puncture which is very challenging given his current clinical situation. Concern would be to leukemic involvement or potential for central nervous system infection, with concern to varicella given his current shingles 07/20/2018 reveals the patient to be markedly improved. Sitting upright feeding himself with marked improvement of his confusion. No hallucinations at this time. No great difficulties with self feeding occurred. Did not spill his drink or failed to place the food into his mouth. He is quite comfortable and is pleased that the discomfort to the face and rash left thigh and buttocks has improved with treatment. Case has been discussed with Dr. Traylor and with his improvement is not likely need a lumbar puncture and that it is not likely at all but there is leukemic involvement of his brain or varicella-zoster encephalopathy given the current marked improvement. Likely was a significantly metabolic encephalopathy at admission. The infection from the parent with cellulitis responded very well to antibiotic therapy of cefepime and vancomycin. The patient's white blood cell count remains at 1.3 and platelets are 23, did receive packed red cell infusion and his hemoglobin today 7. Is likely patient will rehab at discharge and would like to see him complete 7 days of cefepime and vancomycin. Given his marked improvement he may transition from intravenous acyclovir for oral Valtrex 1 g every 8 hours at the time of his transfer to complete 10 days of therapy. 07/22/2018 patient is stable today. He is ready for transfer to the extended care facility where he will complete 7 days of cefepime and vancomycin and complete his 10 days of Valtrex for the varicella-zoster that's doing quite well. He does have some waxing and waning of his mental status is doing well at this time. Monitor him closely after his discharge. He does have evidence of pancytopenia and is being followed by hematology oncology. Current Visit: Yes Status: Acute Code(s): C92.00 - ACUTE MYELOBLASTIC LEUKEMIA, NOT HAVING ACHIEVED REMISSION SNOMED Code(s): 63926173
[2018-07-23] MEDS: VANCOMYCIN 1,500 MG in SODIUM CHLORIDE 0.9% 250 ML IVPB SCH (03:14)
[2018-07-23] MEDS: CEFEPIME 2 GM in SODIUM CHLORIDE 0.9% 50 ML IVPB SCH (04:34)
[2018-07-23] MEDS: SODIUM CHLORIDE 0.9% 1,000 ML IV SCH (05:44)
[2018-07-23 07:28] VITALS: BP 104/74; PULSE 90; RESP 18; TEMP 97.6
[2018-07-23] MEDS: ACYCLOVIR SODIUM 1,000 MG in SODIUM CHLORIDE 0.9% 250 ML IVPB SCH (08:15)
[2018-07-23] MEDS: PANTOPRAZOLE 40 MG TABLET PO SCH (08:16)
[2018-07-23] MEDS: ATORVASTATIN 10 MG TAB PO SCH (08:16)
[2018-07-23] MEDS: VILAZODONE HCL 40 MG PO SCH (08:16)
[2018-07-23] MEDS: amLODIPine 5 MG TAB PO SCH (08:16)
[2018-07-23] MEDS: METOPROLOL SUCCINATE (ER) 50 MG TAB.ER.24H PO SCH (08:17)
[2018-07-23] MEDS: POTASSIUM CHLORIDE ER 20 MEQ TAB.ER PO SCH (08:17)
[2018-07-23 08:38] LABS: ALT 55 U/L (21-72); AST 22 U/L (17-59); Alkaline Phosphatase 45 U/L (38-126); Anion Gap 6 mmol/L; Blood Urea Nitrogen 15 mg/dL (9-20); Calcium 8.8 mg/dL (8.4-10.2); Carbon Dioxide 27 mmol/L (22-30); Chloride 107 mmol/L (98-107); Glucose 111 mg/dL (74-99); Potassium 3.8 mmol/L (3.5-5.1); Sodium 140 mmol/L (137-145); Total Bilirubin 0.6 mg/dL (0.2-1.3); Total Protein 5.3 g/dL (6.3-8.2)
[2018-07-23 08:46] LABS: Anisocytosis Slight; HCT 24.2 % (39.0-53.0); HGB 8.1 gm/dL (13.0-17.5); MCH 32.4 pg (25.0-35.0); MCHC 33.4 g/dL (31.0-37.0); MCV 97.1 fL (80.0-100.0); Macrocytosis Slight; Mean Platelet Volume 14.2; Poikilocytosis Slight; RBC 2.49 m/uL (4.30-5.90); RDW 18.2 % (11.5-15.5); WBC 3.7 k/uL (3.8-10.6)
[2018-07-23 08:51] LABS: Platelet Count 24 k/uL (150-450)
== END 2018-07-23 10:15 | DRG 871 ==
LOC: EC 11:36 → 4MS4W 13:46
PROVIDERS: ADMIT Internal Medicine; ATTEND Internal Medicine
PROC: 30233N1 Transfusion of Nonautologous Red Blood Cells into Peripheral Vein, Percutaneous Approach (ICD-10-PCS; 2018-07-19)
PROC: 02HV33Z Insertion of Infusion Device into Superior Vena Cava, Percutaneous Approach (ICD-10-PCS; principal; 2018-07-22 09:15)
DX: A41.89 Other specified sepsis (principal); G93.41 Metabolic encephalopathy; C92.00 Acute myeloblastic leukemia, not having achieved remission; D61.818 Other pancytopenia; L03.213 Periorbital cellulitis; B97.89 Other viral agents as the cause of diseases classified elsewhere; B02.9 Zoster without complications; E78.5 Hyperlipidemia, unspecified; H11.30 Conjunctival hemorrhage, unspecified eye; H11.422 Conjunctival edema, left eye; I10 Essential (primary) hypertension; I25.2 Old myocardial infarction; L29.9 Pruritus, unspecified; K57.90 Diverticulosis of intestine, part unspecified, without perforation or abscess without bleeding; Z86.14 Personal history of Methicillin resistant Staphylococcus aureus infection; Z95.0 Presence of cardiac pacemaker; Z92.3 Personal history of irradiation; Z92.21 Personal history of antineoplastic chemotherapy; Z87.891 Personal history of nicotine dependence; Z85.828 Personal history of other malignant neoplasm of skin; Z85.46 Personal history of malignant neoplasm of prostate; Z90.79 Acquired absence of other genital organ(s); Z90.49 Acquired absence of other specified parts of digestive tract; Z96.652 Presence of left artificial knee joint; Z79.899 Other long term (current) drug therapy; Z91.041 Radiographic dye allergy status; Z80.3 Family history of malignant neoplasm of breast; Z80.8 Family history of malignant neoplasm of other organs or systems
CPT/HCPCS: 36415; 36430; 36569; 70450; 70460; 71046; 76937; 77001; 80053; 80202; 81001; 82550; 82553; 83605; 84484; 85025; 85610; 85730; 86850; 86900; 86901; 86920; 87040; 87086; 93005; 95816; 96365; 96366; 96367; 96368; 96375; 99285

== ENCOUNTER 2018-08-04 10:13 | Inpatient (IN) | payer MEDICARE, BC ==
--- NOTE | 2018-08-04 11:25 | ED ---
Recheck HPI - General Chief Complaint: Recheck/Abnormal Lab/Rx Stated Complaint: abnormal labs Source: EMS Mode of arrival: EMS Limitations: altered mental status, physical limitation - History of Present Illness Initial Comments: Dictation was produced using [id number] dictation software. please excuse any grammatical, word or spelling errors. Chief Complaint: 78-year-old male transferred from [facility] for low hemoglobin and confusion. History of Present Illness: Patient is 78-year-old male who was initially evaluated at [facility] emergency room for low hemoglobin and confusion. Patient was brought in by EMS. He is initially at [facility] where he was found to have increased confusion. Chart review shows that patient initially presented to the hospital for low hemoglobin and confusion. Chart review shows that patient was recently admitted to this facility for periorbital cellulitis, shingles, pancytopenia related to acute myelogenous leukemia acute infections patient released recently started on chemotherapy. The ROS documented in this emergency department record has been reviewed and confirmed by me. Those systems with pertinent positive or negative responses have been documented in the HPI. All other systems are other negative and/or noncontributory. - Related Data Home Medications Medication Instructions Recorded Confirmed amLODIPine [Norvasc] 5 mg PO DAILY 06/30/18 08/04/18 Potassium Chloride [Klor-Con 20] 20 meq PO DAILY 07/16/18 08/04/18 Vilazodone HCl [Viibryd] 40 mg PO DAILY 07/16/18 08/04/18 Acetaminophen Tab [Tylenol Tab] 650 mg PO Q6H PRN 08/04/18 08/04/18 Ciprofloxacin HCl [Cipro] 250 mg PO Q12HR 08/04/18 08/04/18 Fluconazole [Diflucan] 100 mg PO DAILY 08/04/18 08/04/18 Furosemide [Lasix] 20 mg PO DAILY 08/04/18 08/04/18 Metoprolol Tartrate [Lopressor] 50 mg PO DAILY 08/04/18 08/04/18 Ondansetron [Zofran] 4 mg PO Q8H PRN 08/04/18 08/04/18 Previous Rx's Medication Instructions Recorded oxyCODONE-APAP 5-325MG [Percocet 1 tab PO Q8HR PRN #9 tab 07/22/18 5-325 mg] Allergies Allergy/AdvReac Type Severity Reaction Status Date / Time Iodinated Contrast- Oral and Allergy Rash/Hives Verified 08/04/18 11:39 IV Dye Review of Systems ROS Statement: Those systems with pertinent positive or pertinent negative responses have been documented in the HPI. ROS Other: All systems not noted in ROS Statement are negative. 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 Organisms: MRSA Date of last positivie culture/infection: 02/2014 MDRO Source:: scalp Past Surgical History: Cholecystectomy, Orthopedic Surgery, Pacemaker, Prostate Surgery, Tonsillectomy Additional Past Surgical History / Comment(s): left knee partial replacement, right ankle replacement Past Anesthesia/Blood Transfusion Reactions: No Reported Reaction Type of Cardiac Device: Permanent Pacemaker Device Placement Date:: unk Past Psychological History: No Psychological Hx Reported Smoking Status: Former smoker Past Alcohol Use History: Daily Past Drug Use History: None Reported - Past Family History Mother Family Medical History: Cancer Additional Family Medical History / Comment(s): Skin CA Sister(s) Family Medical History: Cancer Additional Family Medical History / Comment(s): Breast CA Father Family Medical History: CVA/TIA General Exam - General Exam Comments Initial Comments: PHYSICAL EXAM: General Impression: Alert and oriented x1/4, not in acute distress HEENT: Normocephalic atraumatic, extra-ocular movements intact, pupils equal and reactive to light bilaterally, mucous membranes moist, diffuse skin pallor Cardiovascular: Heart regular rate and rhythm, S1&S2 audible, no murmurs, rubs or gallops Chest: Lungs clear to auscultation bilaterally, no rhonchi, no wheeze, no rales Abdomen: Bowel sounds present, abdomen soft, non-tender, non-distended, no organomegaly Musculoskeletal: Pulses present and equal in all extremities, no peripheral edema Motor: Power 5/5 bilaterally, no focal deficits noted Neurological: CN II-XII grossly intact, no focal motor or sensory deficits noted Skin: Intact with no visualized rashes Psych: Normal affect and mood Limitations: altered mental status, physical limitation Course Vital Signs 08/04/18 10:28 Temperature 100.4 F H Pulse Rate 89 Respiratory 18 Rate Blood Pressure 125/58 O2 Sat by Pulse 97 Oximetry Medical Decision Making - Medical Decision Making ED course: 78-year-old male transferred from [facility] for low hemoglobin and confusion. Patient's clinical presentation consistent with delirium. Patient's hemoglobin which was drawn at [facility] showed critical low of 4.6. He was typed and crossed 2 units of PRBCs. Vital signs upon arrival shows temperature 100.4, rest of vital signs within normal limits. Patient does not appear to be in acute distress. Chart review shows his last hemoglobin was 8.1.. Patient be admitted to internal medicine for further care. Disposition Clinical Impression: Anemia Disposition: ADMITTED IP TO THIS HOSP Condition: Fair Referrals: Nola Goldberg DO [Primary Care Provider] - 1-2 days Decision Time: 15:00
[2018-08-04] MEDS ORDERED: NALOXONE 0.4 MG/ML 1 ML VIAL IV PRN (13:24)
[2018-08-04] MEDS ORDERED: ONDANSETRON 4 MG TAB PO PRN (13:28)
[2018-08-04] MEDS ORDERED: SODIUM CHLORIDE 0.65% NASAL SPRAY 44 ML BTL NASAL PRN (15:24)
--- NOTE | 2018-08-04 15:41 | P.HPIM ---
History of Present Illness H&P Date: 08/04/18 This is a 78-year-old male, patient of Dr. Goldberg. 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 Patient was recently hospitalized at the end of June with shingles and left periorbital cellulitis. Patient completed antibiotics and shingles treatment. He is currently at [facility] for rehabilitation. He was transferred to [facility] this morning due to mental status changes and confusion. Patient was then transferred to [facility] for further workup and evaluation. At [facility] computed tomography scan of the brain was negative for any stroke. Chest x-ray negative for any acute pulmonary process. Stool for occult blood was negative. He was found to have a hemoglobin of 4.6 and is scheduled for 2 units of blood today. White count was 1.4 platelets 10 creatinine 1.19. Oncology will be consulted. Patient has not had a chance to start chemotherapy treatment for his AML he has been too weak to undergo chemo treatment. He had a temperature 100.4 on admission. He is complaining of a sore throat does have sinus congestion and postnasal drip. Also has been having nosebleeds at the senior living. Patient has been picking he has scabs on his ear and scabs around his nose. He is still confused he knows his name only. Patient denies any chest pain or shortness of breath. Denies any nausea or vomiting. Does report having diarrhea. Stool be checked for C. diff. Denies any burning with urination. Patient also saw evidence of oral thrush and nystatin swish and swallow the added. He is already on Diflucan and Cipro for prophylaxis. Patient also complaining of some pain along the left side of the face. Known new injury. No tenderness with palpation. No swelling or lacerations noted. 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 Type of Cardiac Device: Permanent Pacemaker Device Placement Date:: unk Past Psychological History: No Psychological Hx Reported Smoking Status: Former smoker Past Alcohol Use History: Daily Past Drug Use History: None Reported - Past Family History Mother Family Medical History: Cancer Additional Family Medical History / Comment(s): Skin CA Sister(s) Family Medical History: Cancer Additional Family Medical History / Comment(s): Breast CA Father Family Medical History: CVA/TIA Medications and Allergies Home Medications Medication Instructions Recorded Confirmed Type amLODIPine [Norvasc] 5 mg PO DAILY 06/30/18 08/04/18 History Potassium Chloride [Klor-Con 20] 20 meq PO DAILY 07/16/18 08/04/18 History Vilazodone HCl [Viibryd] 40 mg PO DAILY 07/16/18 08/04/18 History oxyCODONE-APAP 5-325MG [Percocet 1 tab PO Q8HR PRN #9 tab 07/22/18 08/04/18 Rx 5-325 mg] Acetaminophen Tab [Tylenol Tab] 650 mg PO Q6H PRN 08/04/18 08/04/18 History Ciprofloxacin HCl [Cipro] 250 mg PO Q12HR 08/04/18 08/04/18 History Fluconazole [Diflucan] 100 mg PO DAILY 08/04/18 08/04/18 History Furosemide [Lasix] 20 mg PO DAILY 08/04/18 08/04/18 History Metoprolol Tartrate [Lopressor] 50 mg PO DAILY 08/04/18 08/04/18 History Ondansetron [Zofran] 4 mg PO Q8H PRN 08/04/18 08/04/18 History Allergies Allergy/AdvReac Type Severity Reaction Status Date / Time Iodinated Contrast- Oral and Allergy Rash/Hives Verified 08/04/18 11:39 IV Dye Physical Exam Vitals: Vital Signs Temp Pulse Resp BP Pulse Ox 08/04/18 14:15 98.5 F 90 18 140/85 98 08/04/18 10:28 100.4 F H 89 18 125/58 97 Intake and Output 08/04/18 08/04/18 08/04/18 06:59 14:59 22:59 Other: Weight 117.934 kg Head normocephalic Neck supple. Full range of motion nontender Lungs clear to auscultation bilaterally no wheezing or crackles Heart regular rate and rhythm S1-S2, no rub or gallop Abdomen is soft nontender nondistended positive bowel sounds no hepatosplenomegaly Extremities no edema Neuro alert and orientated to 1. Patientis name only. Did not know where he was or what year it is. When asked to identify his significant other. Reports this is my . But is unable to state her name. Thrombosis Risk Factor Assmnt - Choose All That Apply Any of the Below Risk Factors Present?: Yes Each Factor Represents 1 point: Obesity (BMI >25) Other Risk Factors: Yes Each Risk Factor Represents 2 Points: Malignancy Each Risk Factor Represents 3 Points: Age 75 years or older Other congenital or acquired thrombophilia - If yes, enter type in comment: No Thrombosis Risk Factor Assessment Total Risk Factor Score: 6 Thrombosis Risk Factor Assessment Level: High Risk Assessment and Plan Assessment: 1. Altered mental status changes: Possibly related to metabolic encephalopathy due to significant anemia. However infectious process must be excluded. Urinalysis and stool for C. diff has been ordered. Check blood culture. Chest x-ray at [facility] was negative. Computed tomography scan of the brain and liver district negative. Hold Percocets 2. Pancytopenia: Possibly secondary to patient's AML. Oncology has been consulted 3. Anemia possibly secondary to patient's AML. However, patient has been having episodes of epistaxis may be some underlying acute blood loss anemia. Continue to monitor. We'll add ocean nasal spray. Patient will be receiving 2 units of blood. 4. Epistaxis: Add ocean nasal spray and monitor 5. Sore throat with sinus congestion and postnasal drip. Add Flonase nasal spray. Also will check a rapid strep throat screen. 6. Oral thrush possible contributing to patient's sore throat and nystatin swish and swallow 7. Recent hospitalization for herpes zoster. Rash has shown improvement. Everything is scabbed over except a small shingle rash on the left buttocks. 8. Recent left periorbital cellulitis resolved 9. Acute myeloid leukemia 10. 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 History of prostate cancer status post surgery and radiation treatment in 1998 12. Acute kidney injury: Creatinine 1.19 possibly related to some dehydration. Lasix on hold. We'll give normal saline at 50 mL an hour GI prophylaxis Pepcid Time with Patient: Greater than 30 (Greater than 60% of the total time spent in counseling and coordination of care.I performed an examination of the patient and discussed their management with the physician Cartographic Designer. I have reviewed the Physician Cartographic Designer's notes and agree with the documented findings and plan of care)
[2018-08-04 17:12] LABS: Appearance,Urine Cloudy (Clear); Bilirubin,Urine Negative (Negative); Blood,Urine Large (Negative); Color,Urine Yellow; Glucose,Urine (UA) Negative (Negative); Ketones,Urine Negative (Negative); Leukocyte Esterase,Urine Negative (Negative); Mucus,Urine Rare /hpf; Nitrite,Urine Negative (Negative); PH, Urine 5.5 (5.0-8.0); Protein,Urine 1+ (Negative); RBC,Urine 95 /hpf (0-5); Specific Gravity,Urine 1.018 (1.001-1.035); Squamous Epithelial Cell,Urine 2 /hpf (0-4); Urobilinogen,Urine <2.0 mg/dL (<2.0); WBC,Urine 1 /hpf (0-5)
[2018-08-04 17:16] LABS: Anisocytosis Slight; MCH 31.6 pg (25.0-35.0); MCHC 34.3 g/dL (31.0-37.0); MCV 92.2 fL (80.0-100.0); Mean Platelet Volume 12.4; RBC 1.79 m/uL (4.30-5.90); RDW 18.6 % (11.5-15.5)
[2018-08-04 17:26] LABS: WBC 1.3 k/uL (3.8-10.6)
[2018-08-04 17:27] LABS: HGB 5.7 gm/dL (13.0-17.5)
[2018-08-04 17:28] LABS: HCT 16.5 % (39.0-53.0)
[2018-08-04] MEDS ORDERED: LORazepam 1 MG TAB PO STA (17:47)
[2018-08-04 17:58] LABS: Band Neutrophils % 1 %; Blast Cells # (M) 0.08 k/uL (0); Eosinophils # (M) 0.01 k/uL (0-0.7); Lymphocytes # (M) 0.86 k/uL (1.0-4.8); Metamyelocytes # (M) 0.01 k/uL (0); Metamyelocytes % 1 %; Monocytes # (M) 0.05 k/uL (0-1.0); Myelocytes # (M) 0.04 k/uL (0); Myelocytes % 3 %; Neutrophils % (M) 20 %; Nucleated Red Blood Cells 0 /100 WBC (0-0); Platelet Count 15 k/uL (150-450); Poikilocytosis (M) Present; Total Cells Counted 200
[2018-08-04 17:59] LABS: Polychromasia Present
[2018-08-04] MEDS ORDERED: VANCOMYCIN 1,000 MG in SODIUM CHLORIDE 0.9% 250 ML IVPB STA (18:13)
[2018-08-04] MEDS ORDERED: CEFEPIME 2 GM in SODIUM CHLORIDE 0.9% 50 ML IVPB STA (18:14)
[2018-08-04] MEDS ORDERED: VANCOMYCIN 1,750 MG in SODIUM CHLORIDE 0.9% 500 ML IVPB ONE (18:15)
[2018-08-04] MEDS: ACETAMINOPHEN TAB 325 MG TAB PO PRN (21:04)
[2018-08-04] MEDS: LORazepam 2 MG/ML INJ IV PRN (21:05)
[2018-08-04] MEDS: SODIUM CHLORIDE 0.9% 1,000 ML IV SCH (22:48)
[2018-08-04] MEDS: CIPROFLOXACIN HCL 250 MG TAB PO SCH (22:48)
[2018-08-04] MEDS: FLUTICASONE 50MCG/SPRAY NASAL 16GM EA NOSTRIL SCH (22:48)
[2018-08-04] MEDS: NYSTATIN 100,000 UNIT/ML SUSP 500,000 UNIT/5 ML CUP PO SCH ×2 (22:48→22:49)
[2018-08-05] MEDS: LORazepam 2 MG/ML INJ IV PRN ×4 (00:58→18:13)
[2018-08-05] MEDS: ACETAMINOPHEN TAB 325 MG TAB PO PRN ×2 (04:18→20:52)
[2018-08-05 07:02] LABS: Anisocytosis Slight; MCH 31.7 pg (25.0-35.0); MCHC 33.8 g/dL (31.0-37.0); MCV 93.9 fL (80.0-100.0); Macrocytosis Slight; Mean Platelet Volume 12.2; RBC 1.65 m/uL (4.30-5.90); RDW 18.6 % (11.5-15.5)
[2018-08-05 07:28] LABS: Albumin 2.8 g/dL (3.5-5.0); Calcium 8.7 mg/dL (8.4-10.2); Potassium 4.1 mmol/L (3.5-5.1); Total Bilirubin 0.5 mg/dL (0.2-1.3); Total Protein 5.1 g/dL (6.3-8.2)
[2018-08-05 07:46] LABS: HCT 15.5 % (39.0-53.0); HGB 5.2 gm/dL (13.0-17.5); Platelet Count 15 k/uL (150-450); WBC 1.1 k/uL (3.8-10.6)
[2018-08-05 08:29] LABS: Band Neutrophils % 1 %; Lymphocytes # (M) 0.74 k/uL (1.0-4.8); Monocytes # (M) 0.13 k/uL (0-1.0); Neutrophils % (M) 14 %
[2018-08-05 08:30] LABS: Blast Cells # (M) 0.07 k/uL (0); Nucleated Red Blood Cells 0 /100 WBC (0-0); Total Cells Counted 100
[2018-08-05 08:31] LABS: Poikilocytosis (M) Present
[2018-08-05] MEDS: FLUTICASONE 50MCG/SPRAY NASAL 16GM EA NOSTRIL SCH (08:58)
[2018-08-05] MEDS: METOPROLOL TARTRATE 50 MG TAB PO SCH (08:58)
[2018-08-05] MEDS: NYSTATIN 100,000 UNIT/ML SUSP 500,000 UNIT/5 ML CUP PO SCH ×5 (08:58→20:22)
[2018-08-05] MEDS: FAMOTIDINE 20 MG TAB PO SCH (08:58)
[2018-08-05] MEDS: amLODIPine 5 MG TAB PO SCH (08:58)
[2018-08-05] MEDS: CIPROFLOXACIN HCL 250 MG TAB PO SCH ×2 (08:58→20:19)
[2018-08-05] MEDS: POTASSIUM CHLORIDE ER 20 MEQ TAB.ER PO SCH (09:04)
--- NOTE | 2018-08-05 10:40 | P.PN ---
Subjective Progress Note Date: 08/05/18 This is a 78-year-old male, patient of Dr. Goldberg. 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 Patient was recently hospitalized at the end of June with shingles and left periorbital cellulitis. Patient completed antibiotics and shingles treatment. He is currently at [facility] for rehabilitation. He was transferred to [facility] this morning due to mental status changes and confusion. Patient was then transferred to [facility] for further workup and evaluation. At [facility] computed tomography scan of the brain was negative for any stroke. Chest x-ray negative for any acute pulmonary process. Stool for occult blood was negative. He was found to have a hemoglobin of 4.6 and is scheduled for 2 units of blood today. White count was 1.4 platelets 10 creatinine 1.19. Oncology will be consulted. Patient has not had a chance to start chemotherapy treatment for his AML he has been too weak to undergo chemo treatment. He had a temperature 100.4 on admission. He is complaining of a sore throat does have sinus congestion and postnasal drip. Also [facility]. Patient has been picking he has scabs on his ear and scabs around his nose. He is still confused he knows his name only. Patient denies any chest pain or shortness of breath. Denies any nausea or vomiting. Does report having diarrhea. Stool be checked for C. diff. Denies any burning with urination. Patient also saw evidence of oral thrush and nystatin swish and swallow the added. He is already on Diflucan and Cipro for prophylaxis. Patient also complaining of some pain along the left side of the face. Known new injury. No tenderness with palpation. No swelling or lacerations noted. On 08/05/2018 patient is currently resting comfortably in bed. At this time patient denies chest pain or shortness of breath. Denies any nausea vomiting or diarrhea. Denies any burning with urination. patient did have elevated temperature 101.[address] Min for infectious disease has been consulted. Hemoglobin 5.2 this a.m. 2 units PRBCs have been ordered Per oncology. Objective - Vital Signs Vital signs: Vital Signs Temp 98.2 F 08/05/18 08:00 Pulse 90 08/05/18 08:00 Resp 18 08/05/18 08:00 BP 123/92 08/05/18 08:00 Pulse Ox 95 08/05/18 08:00 Intake & Output 08/04/18 08/05/18 08/05/18 18:59 06:59 18:59 Intake Total 700 Balance 700 Weight 117.934 kg 94 kg 94 kg Intake: Intake, IV Titration 700 Amount Cefepime 2 gm In Sodium 50 Chloride 0.9% 50 ml @ 100 mls/hr IVPB ONCE STA Rx# :[id number] Sodium Chloride 0.9% 1, 150 000 ml @ 50 mls/hr IV . Q20H [facility] Rx#:[id number] Vancomycin 1,750 mg In 500 Sodium Chloride 0.9% 500 ml @ 167 mls/hr IVPB ONCE ONE Rx#:[id number] Other: Voiding Method Diaper Diaper # Voids 1 - Exam Head normocephalic Neck supple. Full range of motion nontender Lungs clear to auscultation bilaterally no wheezing or crackles Heart regular rate and rhythm S1-S2, no rub or gallop Abdomen is soft nontender nondistended positive bowel sounds no hepatosplenomegaly Extremities no edema Neuro alert and orientated to 1. Patientis name only. Did not know where he was or what year it is. - Labs CBC & Chem 7: 08/05/18 06:24 08/05/18 06:24 Labs: Abnormal Lab Results - Last 24 Hours (Table) 08/04/18 08/04/18 08/05/18 Range/Units 16:52 17:00 06:24 WBC 1.3 L* 1.1 L* (3.8-10.6) k/uL RBC 1.79 L 1.65 L (4.30-5.90) m/uL Hgb 5.7 L* 5.2 L* (13.0-17.5) gm/dL Hct 16.5 L* 15.5 L* (39.0-53.0) % RDW 18.6 H 18.6 H (11.5-15.5) % Plt Count 15 L* 15 L* (150-450) k/uL Neutrophils # (Manual) 0.20 L* 0.10 L* (1.3-7.7) k/uL Lymphocytes # (Manual) 0.86 L 0.74 L (1.0-4.8) k/uL Metamyelocytes # (Man) 0.01 H (0) k/uL Myelocytes # (Manual) 0.04 H (0) k/uL Blast Cells # (Man) 0.08 H 0.07 H (0) k/uL Chloride (98-107) mmol/L BUN (9-20) mg/dL Total Protein (6.3-8.2) g/dL Albumin (3.5-5.0) g/dL Urine Protein 1+ H (Negative) Urine Blood Large H (Negative) Urine RBC 95 H (0-5) /hpf Urine Mucus Rare H (None) /hpf 08/05/18 Range/Units 06:24 WBC (3.8-10.6) k/uL RBC (4.30-5.90) m/uL Hgb (13.0-17.5) gm/dL Hct (39.0-53.0) % RDW (11.5-15.5) % Plt Count (150-450) k/uL Neutrophils # (Manual) (1.3-7.7) k/uL Lymphocytes # (Manual) (1.0-4.8) k/uL Metamyelocytes # (Man) (0) k/uL Myelocytes # (Manual) (0) k/uL Blast Cells # (Man) (0) k/uL Chloride 113 H (98-107) mmol/L BUN 34 H (9-20) mg/dL Total Protein 5.1 L (6.3-8.2) g/dL Albumin 2.8 L (3.5-5.0) g/dL Urine Protein (Negative) Urine Blood (Negative) Urine RBC (0-5) /hpf Urine Mucus (None) /hpf Microbiology - Last 24 Hours (Table) 08/04/18 17:00 Group A Strep Throat Culture - Preliminary Throat 08/04/18 17:00 Urine Culture - Preliminary Urine,Voided Assessment and Plan Assessment: 1. Altered mental status changes: Possibly related to metabolic encephalopathy due to significant anemia. However infectious process must be excluded. Urinalysis and stool for C. diff has been ordered. Check blood culture. Chest x-ray at [facility] was negative. Computed tomography scan of the brain and liver district negative. Hold Percocets 2. Pancytopenia: Possibly secondary to patient's AML. Platelets 15. Oncology following. 3. Anemia possibly secondary to patient's AML. However, patient has been having episodes of epistaxis may be some underlying acute blood loss anemia. Continue to monitor. We'll add ocean nasal spray. Patient will be receiving 2 units of blood. 4. Epistaxis: Add ocean nasal spray and monitor 5. Sore throat with sinus congestion and postnasal drip. Add Flonase nasal spray. Also will check a rapid strep throat screen. 6. Oral thrush possible contributing to patient's sore throat and nystatin swish and swallow 7. Recent hospitalization for herpes zoster. Rash has shown improvement. Everything is scabbed over except a small shingle rash on the left buttocks. 8. Recent left periorbital cellulitis resolved 9. Acute myeloid leukemia 10. History of AML and 2013 status post chemotherapy 11. History of prostate cancer status post surgery and radiation treatment in 1998 12. Acute kidney injury: Creatinine 1.19 possibly related to some dehydration. Lasix on hold. We'll give normal saline at 50 mL an hour. Creatinine improving to 1.02 and bun 34. We'll continue to monitor closely 13. Febrile patient had temperature 101.[address] Min per infectious disease has been consulted. Awaiting culture results. Patient currently on Cipro antibiotic. Patient also on Diflucan GI prophylaxis Pepcid I performed an examination of the patient and discussed their management with the Nurse Practitioner. I have reviewed the Nurse Practitioner's notes and agree with the documented findings and plan of care
[2018-08-05] MEDS: SODIUM CHLORIDE 0.9% 1,000 ML IV SCH (12:23)
[2018-08-05] MEDS: FLUCONAZOLE 100 MG TAB PO SCH (12:25)
--- NOTE | 2018-08-05 18:31 | P.CONS ---
History of Present Illness - Reason for Consult Consult date: 08/05/18 AML, pancytopenia Requesting physician: Fabiana Yang - Chief Complaint confusion, epistaxis - History of Present Illness Mr. Childress is a pleasant male pt of Dr. 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 He received induction chemotherapy with hyper-CVAD, June 2013, repeat bone marrow biopsy showed that he was not in complete molecular remission. He was given the option of allogenic stem cell transplant but, he opted for maintenance therapy. He started daily mercatopurine with weekly methotrexate, monthly prednisone, Rituxan QO month, and IV vincristine in August 2013, held 2 weeks in September 2013 due to pancytopenia, complete in Aug 2015 at a reduced dose. Most of treatment in [facility] other then when he was in town here for the summer. Pt was local and had routine CBC done at PCP Dr. Goldberg's ofc May 2018, he was severely pancytonenic. It was confirmed that earlier this year pt was in remission per his Oncologist Dr Lora. Bone marrow biopsy done on 07/03/18 was consistent with AML, cytogenetics revealed 5q- and monosomy 7. It was discussed with pt and at [facility] on 07/[address] Wilson that pt's prognosis was poor, and with poor performance status and multiple co-morbid health conditions standard treatment was not feasible. There was discussion about starting dacogen but pt was recently admitted with severe shingles. He has completed anti-viral treatment, he was participating in rehab and able to ambulate short distances with a walker, he is not c/o any pain. 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 Type of Cardiac Device: Permanent Pacemaker Device Placement Date:: unk Past Psychological History: No Psychological Hx Reported Smoking Status: Former smoker Past Alcohol Use History: Daily Past Drug Use History: None Reported - Past Family History Mother Family Medical History: Cancer Additional Family Medical History / Comment(s): Skin CA Sister(s) Family Medical History: Cancer Additional Family Medical History / Comment(s): Breast CA Father Family Medical History: CVA/TIA Medications and Allergies Home Medications Medication Instructions Recorded Confirmed Type amLODIPine [Norvasc] 5 mg PO DAILY 06/30/18 08/04/18 History Potassium Chloride [Klor-Con 20] 20 meq PO DAILY 07/16/18 08/04/18 History Vilazodone HCl [Viibryd] 40 mg PO DAILY 07/16/18 08/04/18 History oxyCODONE-APAP 5-325MG [Percocet 1 tab PO Q8HR PRN #9 tab 07/22/18 08/04/18 Rx 5-325 mg] Acetaminophen Tab [Tylenol Tab] 650 mg PO Q6H PRN 08/04/18 08/04/18 History Ciprofloxacin HCl [Cipro] 250 mg PO Q12HR 08/04/18 08/04/18 History Fluconazole [Diflucan] 100 mg PO DAILY 08/04/18 08/04/18 History Furosemide [Lasix] 20 mg PO DAILY 08/04/18 08/04/18 History Metoprolol Tartrate [Lopressor] 50 mg PO DAILY 08/04/18 08/04/18 History Ondansetron [Zofran] 4 mg PO Q8H PRN 08/04/18 08/04/18 History Allergies Allergy/AdvReac Type Severity Reaction Status Date / Time Iodinated Contrast- Oral and Allergy Rash/Hives Verified 08/04/18 11:39 IV Dye Physical Exam Vitals: Vital Signs Temp Pulse Pulse Resp BP BP Pulse Ox 08/05/18 08:00 98.2 F 90 18 123/92 95 08/05/18 05:40 99.3 F 08/05/18 04:00 101.3 F H 76 20 134/68 96 08/05/18 00:00 99.1 F 88 20 147/81 99 08/04/18 20:39 101.1 F H 96 19 165/76 99 08/04/18 19:47 97 17 148/76 96 08/04/18 17:51 100.3 F H 97 17 138/59 95 08/04/18 14:15 98.5 F 90 18 140/85 98 08/04/18 10:28 100.4 F H 89 18 125/58 97 Intake and Output 08/04/18 08/05/18 08/05/18 22:59 06:59 14:59 Intake Total 700 Balance 700 Intake: Intake, IV Titration 700 Amount Cefepime 2 gm In Sodium 50 Chloride 0.9% 50 ml @ 100 mls/hr IVPB ONCE STA Rx# :[id number] Sodium Chloride 0.9% 1, 150 000 ml @ 50 mls/hr IV . Q20H [facility] Rx#:[id number] Vancomycin 1,750 mg In 500 Sodium Chloride 0.9% 500 ml @ 167 mls/hr IVPB ONCE ONE Rx#:[id number] Other: Voiding Method Diaper Diaper # Voids 2 1 Weight 94 kg 94 kg - Constitutional General appearance: cooperative, no acute distress, obese - EENT dry mucus membranes Eyes: anicteric sclerae, EOMI - Neck Neck: no lymphadenopathy - Respiratory Respiratory: bilateral: CTA - Cardiovascular Heart sounds: normal: S1, S2 leg Peripheral Edema: bilateral: Trace - Gastrointestinal General gastrointestinal: no absent bowel sounds, no decreased bowel sounds, no distended, no hepatomegaly, no hyperactive bowel sounds, normal bowel sounds, no organomegaly, no rigid, no scaphoid, soft, no splenomegaly, no tenderness, no umbilical hernia, no ventral hernia - Integumentary face and scalp multiple skin lesions of various sizes and color, scabbing from shingles is improved, no drainage, dry, scaley - Neurologic Neurologic: CNII-XII intact - Musculoskeletal Musculoskeletal: generalized weakness - Psychiatric Alert, oriented to self, pt has previously had confusion that proportionate to his degree of anemia Results CBC & Chem 7: 08/05/18 06:24 08/05/18 06:24 Labs: Abnormal Lab Results - Last 24 Hours (Table) 08/04/18 08/04/18 08/05/18 Range/Units 16:52 17:00 06:24 WBC 1.3 L* 1.1 L* (3.8-10.6) k/uL RBC 1.79 L 1.65 L (4.30-5.90) m/uL Hgb 5.7 L* 5.2 L* (13.0-17.5) gm/dL Hct 16.5 L* 15.5 L* (39.0-53.0) % RDW 18.6 H 18.6 H (11.5-15.5) % Plt Count 15 L* 15 L* (150-450) k/uL Neutrophils # (Manual) 0.20 L* 0.10 L* (1.3-7.7) k/uL Lymphocytes # (Manual) 0.86 L 0.74 L (1.0-4.8) k/uL Metamyelocytes # (Man) 0.01 H (0) k/uL Myelocytes # (Manual) 0.04 H (0) k/uL Blast Cells # (Man) 0.08 H 0.07 H (0) k/uL Chloride (98-107) mmol/L BUN (9-20) mg/dL Total Protein (6.3-8.2) g/dL Albumin (3.5-5.0) g/dL Urine Protein 1+ H (Negative) Urine Blood Large H (Negative) Urine RBC 95 H (0-5) /hpf Urine Mucus Rare H (None) /hpf 08/05/18 Range/Units 06:24 WBC (3.8-10.6) k/uL RBC (4.30-5.90) m/uL Hgb (13.0-17.5) gm/dL Hct (39.0-53.0) % RDW (11.5-15.5) % Plt Count (150-450) k/uL Neutrophils # (Manual) (1.3-7.7) k/uL Lymphocytes # (Manual) (1.0-4.8) k/uL Metamyelocytes # (Man) (0) k/uL Myelocytes # (Manual) (0) k/uL Blast Cells # (Man) (0) k/uL Chloride 113 H (98-107) mmol/L BUN 34 H (9-20) mg/dL Total Protein 5.1 L (6.3-8.2) g/dL Albumin 2.8 L (3.5-5.0) g/dL Urine Protein (Negative) Urine Blood (Negative) Urine RBC (0-5) /hpf Urine Mucus (None) /hpf Microbiology - Last 24 Hours (Table) 08/04/18 17:00 Group A Strep Throat Culture - Preliminary Throat 08/04/18 17:00 Urine Culture - Preliminary Urine,Voided Assessment and Plan (1) AML (acute myeloblastic leukemia) Narrative/Plan: Pt has not been able to start any treatment for AML, he was still working with rehab prior to this admit. Unclear if pt will be able to rehabilitate enough to tolerate treatment. Will see how this hospital course progresses and discuss with pt when he is more oriented and ensure spouse is present Current Visit: Yes Status: Chronic Priority: High Code(s): C92.00 - ACUTE MYELOBLASTIC LEUKEMIA, NOT HAVING ACHIEVED REMISSION SNOMED Code(s): 66571125 (2) Pancytopenia Narrative/Plan: Irradiated blood products will be ordered. 2 units PRBCs requested for Hgb 5.2. Transfuse to keep Hgb >7 Platelets 15,000, no gross bleeding noted, cont to monitor CBC, transfuse if symptomatic or plt<10,000 Current Visit: Yes Status: Chronic Priority: High Code(s): D61.818 - OTHER PANCYTOPENIA SNOMED Code(s): 608586320 (3) Herpes zoster Narrative/Plan: Completed treatment, lesions on face are healing. Current Visit: No Status: Acute Priority: Low Code(s): B02.9 - ZOSTER WITHOUT COMPLICATIONS SNOMED Code(s): 3918485 Plan: attests he has seen and evaluated pt, performed H&P, and agrees with note as dictated, documented as a scribe
--- NOTE | 2018-08-05 21:58 | P.CONS ---
History of Present Illness - Reason for Consult Consult date: 08/05/18 - Chief Complaint Weakness - History of Present Illness 78-year-old male Known to the service from his recent hospitalization where he had difficulty with sepsis and evidence of varicella-zoster infection. He had periorbital cellulitis also and responded well to a course of antibiotic therapy that was continued the time of this transfer. The patient has an extensive history first being diagnosed with ALL back in 2012. Was treated with chemotherapy and then maintenance treatment. He then had worsening and was found evidence of AML but has been too ill with a poor performance status and not a candidate for chemotherapy however is being considered for possibly Dacogen. He has had difficulties with a recent infections and now the worsening of his status, further complicating any attempts for chemotherapy. The patient was first seen at an outside hospital where he was found evidence of significant anemia with a hemoglobin of about 4.5, with pancytopenia. Transferred to the facility so that he can be in the care of his oncologist is receiving radiated packed red cells. Patient remains quite confused, he does have ability to speak but thought content is extremely poor. He is able to move upper and lower extremities well he is in bed. She related that he also had diarrhea and stool is requested. 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 Type of Cardiac Device: Permanent Pacemaker Device Placement Date:: unk Past Psychological History: No Psychological Hx Reported Smoking Status: Former smoker Past Alcohol Use History: Daily Past Drug Use History: None Reported - Past Family History Mother Family Medical History: Cancer Additional Family Medical History / Comment(s): Skin CA Sister(s) Family Medical History: Cancer Additional Family Medical History / Comment(s): Breast CA Father Family Medical History: CVA/TIA Medications and Allergies Home Medications and Allergies Comment(s): Current Medications Acetaminophen (Tylenol Tab) 650 mg PO Q6H PRN PRN Reason: Headache Last Admin: 08/05/18 20:52 Dose: 650 mg Amlodipine Besylate (Norvasc) 5 mg PO DAILY [facility] Last Admin: 08/05/18 08:58 Dose: 5 mg Ciprofloxacin (Cipro) 250 mg PO Q12HR [facility] Stop: 08/07/18 21:01 Last Admin: 08/05/18 20:19 Dose: 250 mg Famotidine (Pepcid) 20 mg PO DAILY [facility] Last Admin: 08/05/18 08:58 Dose: 20 mg Fluconazole (Diflucan) 100 mg PO DAILY [facility] Last Admin: 08/05/18 12:25 Dose: 100 mg Fluticasone Propionate (Flonase Nasal [place]) 2 spray EA NOSTRIL DAILY [facility] Last Admin: 08/05/18 08:58 Dose: Not Given Sodium Chloride (Saline 0.9%) 1,000 mls @ 50 mls/hr IV .Q20H [facility] Last Admin: 08/05/18 12:23 Dose: Not Given Lorazepam (Ativan) 1 mg IV Q4HR PRN PRN Reason: Anxiety Last Admin: 08/05/18 18:13 Dose: 1 mg Metoprolol Tartrate (Lopressor) 50 mg PO DAILY [facility] Last Admin: 08/05/18 08:58 Dose: 50 mg Naloxone HCl (Narcan) 0.2 mg IV Q2M PRN PRN Reason: Opioid Reversal Nystatin (Mycostatin Oral Susp) 500,000 unit PO QID [facility] Last Admin: 08/05/18 20:22 Dose: Not Given Ondansetron HCl (Zofran) 4 mg PO Q8H PRN PRN Reason: Nausea Potassium Chloride (K-Dur 20) 20 meq PO DAILY [facility] Last Admin: 08/05/18 09:04 Dose: 20 meq Sodium Chloride (Deep Sea) 2 spray NASAL QID PRN PRN Reason: Dry Nasal Passages Home Medications Medication Instructions Recorded Confirmed Type amLODIPine [Norvasc] 5 mg PO DAILY 06/30/18 08/04/18 History Potassium Chloride [Klor-Con 20] 20 meq PO DAILY 07/16/18 08/04/18 History Vilazodone HCl [Viibryd] 40 mg PO DAILY 07/16/18 08/04/18 History oxyCODONE-APAP 5-325MG [Percocet 1 tab PO Q8HR PRN #9 tab 07/22/18 08/04/18 Rx 5-325 mg] Acetaminophen Tab [Tylenol Tab] 650 mg PO Q6H PRN 08/04/18 08/04/18 History Ciprofloxacin HCl [Cipro] 250 mg PO Q12HR 08/04/18 08/04/18 History Fluconazole [Diflucan] 100 mg PO DAILY 08/04/18 08/04/18 History Furosemide [Lasix] 20 mg PO DAILY 08/04/18 08/04/18 History Metoprolol Tartrate [Lopressor] 50 mg PO DAILY 08/04/18 08/04/18 History Ondansetron [Zofran] 4 mg PO Q8H PRN 08/04/18 08/04/18 History Allergies Allergy/AdvReac Type Severity Reaction Status Date / Time Iodinated Contrast- Oral and Allergy Rash/Hives Verified 08/04/18 11:39 IV Dye Physical Exam Vitals: Vital Signs Temp Pulse Pulse Resp BP BP Pulse Ox 08/05/18 21:17 100.6 F H 108 H 18 127/65 93 L 08/05/18 20:47 100.3 F H 102 H 16 118/63 95 08/05/18 20:37 98.0 F 103 H 18 140/72 93 L 08/05/18 15:56 98.2 F 82 18 131/62 95 08/05/18 15:38 78 18 08/05/18 12:00 98.3 F 78 18 124/52 94 L 08/05/18 08:00 98.2 F 90 18 123/92 95 08/05/18 05:40 99.3 F 08/05/18 04:00 101.3 F H 76 20 134/68 96 08/05/18 00:00 99.1 F 88 20 147/81 99 Intake and Output 08/05/18 08/05/18 08/05/18 06:59 14:59 22:59 Intake Total 220 Balance 220 Intake: Oral 220 Blood Product 0 Rc Irr As1 Unit 0 [id number] Other: Voiding Method Diaper Diaper Diaper # Voids 1 Weight 94 kg 94 kg 78-year-old male who is barely arousable, obtunded, has evidence of flaccidity to the left side. HEENT: Anicteric conjunctiva are pink and moist nasal mucosa grossly intact without significant lesions, there is no thrush. Neck: The neck is supple without significant lymphadenopathy or thyromegaly. Lungs: Good bilateral air entry without significant crackles or wheezing. There is no significant bronchial sounds. There is no egophony or dullness. Heart: Regular rate and rhythm with an audible S1-S2, no S3 no S4. There is no significant murmur click or rub, PMI was nondisplaced. Abdomen: Positive bowel sounds soft and nontender without palpable masses or organomegaly. There was no guarding or rebound. Extremities: The upper extremities have excellent pulses they are symmetric, no significant petechiae or telangiectasia. No splinter hemorrhages were noted. The lower extremities are free from significant edema. The peripheral pulses were 2+ and symmetric. Neuro: Has some minimal response to stimuli but the nursing staff relates a while ago he was interactive. He has a BiPAP in place for his respiratory failure. Flank left-sided flaccidity is noted Results CBC & Chem 7: 08/05/18 06:24 08/05/18 06:24 Labs: Abnormal Lab Results - Last 24 Hours (Table) 08/05/18 08/05/18 08/05/18 Range/Units 06:24 06:24 09:24 WBC 1.1 L* (3.8-10.6) k/uL RBC 1.65 L (4.30-5.90) m/uL Hgb 5.2 L* (13.0-17.5) gm/dL Hct 15.5 L* (39.0-53.0) % RDW 18.6 H (11.5-15.5) % Plt Count 15 L* (150-450) k/uL Neutrophils # (Manual) 0.10 L* (1.3-7.7) k/uL Lymphocytes # (Manual) 0.74 L (1.0-4.8) k/uL Blast Cells # (Man) 0.07 H (0) k/uL Chloride 113 H (98-107) mmol/L BUN 34 H (9-20) mg/dL Total Protein 5.1 L (6.3-8.2) g/dL Albumin 2.8 L (3.5-5.0) g/dL Crossmatch See Detail Microbiology - Last 24 Hours (Table) 08/04/18 16:52 Blood Culture - Preliminary Blood No Growth after 24 hours 08/04/18 17:00 Group A Strep Throat Culture - Preliminary Throat 08/04/18 17:00 Urine Culture - Preliminary Urine,Voided Laboratory Results WBC 1.1 k/uL (3.8-10.6) L* 08/05/18 06:24 RBC 1.65 m/uL (4.30-5.90) L 08/05/18 06:24 Hgb 5.2 gm/dL (13.0-17.5) L* 08/05/18 06:24 Hct 15.5 % (39.0-53.0) L* 08/05/18 06:24 MCV 93.9 fL (80.0-100.0) 08/05/18 06:24 MCH 31.7 pg (25.0-35.0) 08/05/18 06:24 MCHC 33.8 g/dL (31.0-37.0) 08/05/18 06:24 RDW 18.6 % (11.5-15.5) H 08/05/18 06:24 Plt Count 15 k/uL (150-450) L* 08/05/18 06:24 Neutrophils % (Manual) 14 % 08/05/18 06:24 Band Neutrophils % 1 % 08/05/18 06:24 Lymphocytes % (Manual) 67 % 08/05/18 06:24 Monocytes % (Manual) 12 % 08/05/18 06:24 Eosinophils % (Manual) 1 % 08/04/18 16:52 Metamyelocytes % 1 % 08/04/18 16:52 Myelocytes % 3 % 08/04/18 16:52 Blast Cells % 6 % 08/05/18 06:24 Neutrophils # ACID RECOVERY OPERATOR 08/05/18 06:24 Neutrophils # (Manual) 0.10 k/uL (1.3-7.7) L* 08/05/18 06:24 Lymphocytes # (Manual) 0.74 k/uL (1.0-4.8) L 08/05/18 06:24 Monocytes # (Manual) 0.13 k/uL (0-1.0) 08/05/18 06:24 Eosinophils # (Manual) 0.01 k/uL (0-0.7) 08/04/18 16:52 Metamyelocytes # (Man) 0.01 k/uL (0) H 08/04/18 16:52 Myelocytes # (Manual) 0.04 k/uL (0) H 08/04/18 16:52 Blast Cells # (Man) 0.07 k/uL (0) H 08/05/18 06:24 Nucleated RBCs 0 /100 WBC (0-0) 08/05/18 06:24 Manual Slide Review Performed 08/04/18 16:52 Polychromasia Present 08/04/18 16:52 Poikilocytosis (manual Present 08/05/18 06:24 Anisocytosis Slight 08/05/18 06:24 Macrocytosis Slight 08/05/18 06:24 Sodium 145 mmol/L (137-145) 08/05/18 06:24 Potassium 4.1 mmol/L (3.5-5.1) 08/05/18 06:24 Chloride 113 mmol/L (98-107) H 08/05/18 06:24 Carbon Dioxide 25 mmol/L (22-30) 08/05/18 06:24 Anion Gap 7 mmol/L 08/05/18 06:24 BUN 34 mg/dL (9-20) H 08/05/18 06:24 Creatinine 1.02 mg/dL (0.66-1.25) 08/05/18 06:24 Est GFR (CKD-EPI)AfAm 82 (>60 ml/min/1.73 sqM) 08/05/18 06:24 Est GFR (CKD-EPI)NonAf 71 (>60 ml/min/1.73 sqM) 08/05/18 06:24 Glucose 94 mg/dL (74-99) 08/05/18 06:24 Calcium 8.7 mg/dL (8.4-10.2) 08/05/18 06:24 Total Bilirubin 0.5 mg/dL (0.2-1.3) 08/05/18 06:24 AST 19 U/L (17-59) 08/05/18 06:24 ALT 45 U/L (21-72) 08/05/18 06:24 Alkaline Phosphatase 47 U/L (38-126) 08/05/18 06:24 Total Protein 5.1 g/dL (6.3-8.2) L 08/05/18 06:24 Albumin 2.8 g/dL (3.5-5.0) L 08/05/18 06:24 Urine Color Yellow 08/04/18 17:00 Urine Appearance Cloudy (Clear) 08/04/18 17:00 Urine pH 5.5 (5.0-8.0) 08/04/18 17:00 Ur Specific [place] 1.018 (1.001-1.035) 08/04/18 17:00 Urine Protein 1+ (Negative) H 08/04/18 17:00 Urine Glucose (UA) Negative (Negative) 08/04/18 17:00 Urine Ketones Negative (Negative) 08/04/18 17:00 Urine Blood Large (Negative) H 08/04/18 17:00 Urine Nitrite Negative (Negative) 08/04/18 17:00 Urine Bilirubin Negative (Negative) 08/04/18 17:00 Urine Urobilinogen <2.0 mg/dL (<2.0) 08/04/18 17:00 Ur Leukocyte Esterase Negative (Negative) 08/04/18 17:00 Urine RBC 95 /hpf (0-5) H 08/04/18 17:00 Urine WBC 1 /hpf (0-5) 08/04/18 17:00 Ur Squamous Epith Cells 2 /hpf (0-4) 08/04/18 17:00 Urine Mucus Rare /hpf (None) H 08/04/18 17:00 Stool Occult Blood Negative (Negative) 08/04/18 15:38 Group A Strep Rapid Negative (Negative) 08/04/18 17:00 Blood Type O Negative 08/05/18 09:24 Blood Type Recheck No 08/05/18 09:24 Antibody Screen NEGATIVE 08/05/18 09:24 Crossmatch See Detail 08/05/18 09:24 Spec Expiration Date 08/08/2018 - 9610 08/05/18 09:24 Microbiology 08/04/18 16:52 Blood Blood Culture - Preliminary No Growth after 24 hours 08/04/18 17:00 Throat Group A Strep Throat Culture - Preliminary 09/11/18 17:00 Urine,Voided Urine Culture - Preliminary Assessment and Plan (1) AML (acute myeloblastic leukemia) Narrative/Plan: 78-year-old male with a history of multiple medical troubles including transition to AML. He is been followed by oncology in the outpatient setting but has had poor performance status and was not a candidate for chemotherapy but was being considered for Dacogen therapy. He however presents with weakness and altered mental status with profound anemia and ongoing pancytopenia. He is receiving transfusions with irradiated cells and continues to have respiratory distress and has a BiPAP in place. Underlying pneumonia is of concern with neutropenia antibiotic therapy was initiated with cefepime and Levaquin while cultures are in process. Appears that the. Orbital cellulitis and varicella-zoster have resolved well at this time. Prognosis is poor. Current Visit: Yes Status: Chronic Priority: High Code(s): C92.00 - ACUTE MYELOBLASTIC LEUKEMIA, NOT HAVING ACHIEVED REMISSION SNOMED Code(s): 46013504 (2) Pancytopenia Current Visit: Yes Status: Chronic Priority: High Code(s): D61.818 - OTHER PANCYTOPENIA SNOMED Code(s): 054526069
[2018-08-05] MEDS ORDERED: LEVOFLOXACIN 500MG-D5W PMX 500 MG in DEXTROSE/WATER 1 100ML.BAG IVPB SCH (22:00)
[2018-08-06] MEDS: CEFEPIME 2 GM in SODIUM CHLORIDE 0.9% 50 ML IVPB SCH ×3 (01:28→15:35)
[2018-08-06] MEDS: LORazepam 2 MG/ML INJ IV PRN ×2 (03:16→16:51)
[2018-08-06 07:06] LABS: Anisocytosis Slight; MCH 30.4 pg (25.0-35.0); MCV 89.6 fL (80.0-100.0); Mean Platelet Volume 11.3; Poikilocytosis Slight; RBC 2.15 m/uL (4.30-5.90); RDW 17.8 % (11.5-15.5)
[2018-08-06 07:15] LABS: HGB 6.6 gm/dL (13.0-17.5); WBC 1.2 k/uL (3.8-10.6)
[2018-08-06 07:16] LABS: HCT 19.3 % (39.0-53.0); Platelet Count 12 k/uL (150-450)
[2018-08-06 07:29] LABS: Albumin 2.8 g/dL (3.5-5.0); Calcium 8.7 mg/dL (8.4-10.2); Potassium 3.9 mmol/L (3.5-5.1); Total Bilirubin 1.1 mg/dL (0.2-1.3); Total Protein 5.3 g/dL (6.3-8.2)
[2018-08-06] MEDS: SODIUM CHLORIDE 0.9% 1,000 ML IV SCH (07:59)
[2018-08-06 09:04] LABS: Blast Cells # (M) 0.11 k/uL (0); Eosinophils # (M) 0.01 k/uL (0-0.7); Lymphocytes # (M) 0.62 k/uL (1.0-4.8); Myelocytes # (M) 0.01 k/uL (0); Myelocytes % 1 %; Neutrophils # (M) 0.35 k/uL (1.3-7.7); Neutrophils % (M) 29 %; Nucleated Red Blood Cells 0 /100 WBC (0-0); Total Cells Counted 200
[2018-08-06 09:05] LABS: Rouleaux Present
[2018-08-06] MEDS: FLUTICASONE 50MCG/SPRAY NASAL 16GM EA NOSTRIL SCH (09:45)
[2018-08-06] MEDS: FLUCONAZOLE 100 MG TAB PO SCH (09:46)
[2018-08-06] MEDS: NYSTATIN 100,000 UNIT/ML SUSP 500,000 UNIT/5 ML CUP PO SCH ×4 (09:46→19:54)
[2018-08-06] MEDS: METOPROLOL TARTRATE 50 MG TAB PO SCH (09:46)
[2018-08-06] MEDS: FAMOTIDINE 20 MG TAB PO SCH (09:46)
[2018-08-06] MEDS: amLODIPine 5 MG TAB PO SCH (09:46)
[2018-08-06] MEDS: POTASSIUM CHLORIDE ER 20 MEQ TAB.ER PO SCH (09:47)
--- NOTE | 2018-08-06 11:30 | P.PN ---
Subjective Progress Note Date: 08/06/18 This is a 78-year-old male, patient of Dr. Goldberg. 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 Patient was recently hospitalized at the end of June with shingles and left periorbital cellulitis. Patient completed antibiotics and shingles treatment. He is currently at [facility] for rehabilitation. He was transferred to [facility] this morning due to mental status changes and confusion. Patient was then transferred to [facility] for further workup and evaluation. At [facility] computed tomography scan of the brain was negative for any stroke. Chest x-ray negative for any acute pulmonary process. Stool for occult blood was negative. He was found to have a hemoglobin of 4.6 and is scheduled for 2 units of blood today. White count was 1.4 platelets 10 creatinine 1.19. Oncology will be consulted. Patient has not had a chance to start chemotherapy treatment for his AML he has been too weak to undergo chemo treatment. He had a temperature 100.4 on admission. He is complaining of a sore throat does have sinus congestion and postnasal drip. Also has been having nosebleeds at the detention. Patient has been picking he has scabs on his ear and scabs around his nose. He is still confused he knows his name only. Patient denies any chest pain or shortness of breath. Denies any nausea or vomiting. Does report having diarrhea. Stool be checked for C. diff. Denies any burning with urination. Patient also saw evidence of oral thrush and nystatin swish and swallow the added. He is already on Diflucan and Cipro for prophylaxis. Patient also complaining of some pain along the left side of the face. Known new injury. No tenderness with palpation. No swelling or lacerations noted. On 08/05/2018 patient is currently resting comfortably in bed. At this time patient denies chest pain or shortness of breath. Denies any nausea vomiting or diarrhea. Denies any burning with urination. patient did have elevated temperature 101.[address] Min for infectious disease has been consulted. Hemoglobin 5.2 this a.m. 2 units PRBCs have been ordered Per oncology. 08/06/2018 patient is currently on Levaquin and cefepime per infectious disease disease for questionable pneumonia. Order chest x-ray. Patient has been now afebrile. Stool for occult blood negative. Strep screen was negative. Urinalysis and urine culture negative for infection did show large blood. However at that time platelets are low at 10. Patient did receive 2 g of blood yesterday hemoglobin is now up to 6.6. White count 1.2 and platelets 12. Discussed case with oncology they will be ordering blood transfusion. They're also planning to have a family meeting tomorrow. Objective - Vital Signs Vital signs: Vital Signs Temp 97.0 F L 08/06/18 07:50 Pulse 100 08/06/18 07:50 Resp 18 08/06/18 07:50 BP 149/74 08/06/18 07:50 Pulse Ox 95 08/06/18 07:50 Intake & Output 08/05/18 08/06/18 08/06/18 18:59 06:59 18:59 Intake Total 220 920 Balance 220 920 Weight 94 kg 83 kg Intake: Intake, IV Titration 200 Amount Cefepime 2 gm In Sodium 100 Chloride 0.9% 50 ml @ 100 mls/hr IVPB Q8HR [facility] Rx# :[id number] Levofloxacin 500Mg-D5w 100 Pmx 500 mg In Dextrose/ Water 1 100ml.bag @ 100 mls/hr IVPB Q24H [facility] Rx#: [id number] Oral 220 100 Blood Product 620 Rc Irr As1 Unit 310 [id number] Rc Irr As1 Unit 310 [id number] Other: Voiding Method Diaper Diaper Diaper # Voids 2 - Exam Head normocephalic Neck supple Lungs clear to auscultation bilaterally no wheezing or crackles Heart regular rate and rhythm S1-S2, no rub or gallop Abdomen is soft nontender nondistended positive bowel sounds no hepatosplenomegaly Extremities no edema Neuro patient more awake and alert. Answering questions. - Labs CBC & Chem 7: 08/06/18 06:46 08/06/18 06:46 Labs: Abnormal Lab Results - Last 24 Hours (Table) 08/05/18 08/06/18 08/06/18 Range/Units 09:24 06:46 06:46 WBC 1.2 L* (3.8-10.6) k/uL RBC 2.15 L (4.30-5.90) m/uL Hgb 6.6 L* (13.0-17.5) gm/dL Hct 19.3 L* (39.0-53.0) % RDW 17.8 H (11.5-15.5) % Plt Count 12 L* (150-450) k/uL Neutrophils # (Manual) 0.35 L* (1.3-7.7) k/uL Lymphocytes # (Manual) 0.62 L (1.0-4.8) k/uL Myelocytes # (Manual) 0.01 H (0) k/uL Blast Cells # (Man) 0.11 H (0) k/uL Chloride 113 H (98-107) mmol/L BUN 33 H (9-20) mg/dL Glucose 102 H (74-99) mg/dL Total Protein 5.3 L (6.3-8.2) g/dL Albumin 2.8 L (3.5-5.0) g/dL Crossmatch See Detail Microbiology - Last 24 Hours (Table) 08/04/18 17:00 Urine Culture - Final Urine,Voided 08/04/18 16:52 Blood Culture - Preliminary Blood No Growth after 24 hours Assessment and Plan Assessment: 1. Altered mental status changes: Possibly related to metabolic encephalopathy due to significant anemia and infectious process. Possible pneumonia. Chest x- ray at [facility] was negative. Computed tomography scan of the brain at [facility] negative. Urine culture negative. Blood cultures remain negative. Strep screen negative. Patient no longer having diarrhea and unable to collect stool for C. diff. Hold Percocets 2. Pancytopenia: Possibly secondary to patient's AML. Oncology following 3. Anemia possibly secondary to patient's AML. However, patient has been having episodes of epistaxis may be some underlying acute blood loss anemia. Continue to monitor. We'll add ocean nasal spray. Hemoglobin of 6.6 after blood transfusion. Discussed with oncology. They're planning to proceed with another blood transfusion 4. Epistaxis: Add ocean nasal spray and monitor. Resolved 5. Sore throat with sinus congestion and postnasal drip. Add Flonase nasal spray. Resolved 6. Oral thrush possible contributing to patient's sore throat and nystatin swish and swallow 7. Recent hospitalization for herpes zoster. Resolved 8. Recent left periorbital cellulitis resolved 9. Acute myeloid leukemia: oncology following. They're planning to have a family meeting tomorrow. 10. 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 History of prostate cancer status post surgery and radiation treatment in 1998 12. Acute kidney injury: Creatinine 1.19 possibly related to dehydration. Lasix currently held. Kidney function showing improvement. 13. Fever with concerns of possible pneumonia. Infectious disease following currently on Levaquin and cefepime. Check chest x-ray. Patient has now been afebrile. GI prophylaxis Pepcid Consult physical therapy I performed an examination of the patient and discussed their management with the physician Solution Design And Analysis Manager. I have reviewed the Physician Solution Design And Analysis Manager's notes and agree with the documented findings and plan of care
--- NOTE | 2018-08-06 14:57 | XR ---
EXAMINATION TYPE: XR chest 2V DATE OF EXAM: 08/06/2018 COMPARISON: Prior chest x-ray 08/04/2018 HISTORY: Pneumonia TECHNIQUE: Frontal and lateral views of the chest are obtained. FINDINGS: Patient is rotated. Right-sided PICC line shows the distal tip coursing towards the right atrium. The cardiac defibrillator leads are present within the coronary sinus and right ventricle, ri ght atrium as on prior. No evident pneumothorax or pleural effusion. Heart remains enlarged. Intersti tium is somewhat prominent although technique may be limited. There are overlying cardiac leads. Cent ral vascularity appears somewhat prominently. IMPRESSION: Correlate to exclude volume overload, pulmonary venous hypertension and interstitial onofre ma. Pneumonia not excluded. Follow-up is recommended. Technique somewhat limited.
[2018-08-06] MEDS: ACETAMINOPHEN TAB 325 MG TAB PO PRN (18:31)
[2018-08-06] MEDS: LEVOFLOXACIN 500 MG TAB PO SCH (20:05)
[2018-08-07] MEDS: CEFEPIME 2 GM in SODIUM CHLORIDE 0.9% 50 ML IVPB SCH ×4 (00:13→23:14)
[2018-08-07] MEDS: ACETAMINOPHEN TAB 325 MG TAB PO PRN ×3 (03:07→21:03)
[2018-08-07] MEDS: SODIUM CHLORIDE 0.9% 1,000 ML IV SCH ×2 (05:41→23:15)
[2018-08-07] MEDS ORDERED: IBUPROFEN 800 MG TAB PO PRN (05:46)
[2018-08-07 06:34] LABS: ALT 44 U/L (21-72); AST 18 U/L (17-59); Albumin 2.7 g/dL (3.5-5.0); Alkaline Phosphatase 45 U/L (38-126); Anion Gap 9 mmol/L; Blood Urea Nitrogen 30 mg/dL (9-20); Calcium 8.9 mg/dL (8.4-10.2); Carbon Dioxide 24 mmol/L (22-30); Chloride 111 mmol/L (98-107); Glucose 99 mg/dL (74-99); Potassium 3.8 mmol/L (3.5-5.1); Sodium 144 mmol/L (137-145); Total Protein 5.1 g/dL (6.3-8.2)
[2018-08-07 06:47] LABS: Anisocytosis Slight; MCH 29.5 pg (25.0-35.0); MCHC 34.2 g/dL (31.0-37.0); MCV 86.2 fL (80.0-100.0); Mean Platelet Volume 14.9; RBC 2.14 m/uL (4.30-5.90); RDW 17.9 % (11.5-15.5)
[2018-08-07 06:54] LABS: HCT 18.4 % (39.0-53.0); HGB 6.3 gm/dL (13.0-17.5); Platelet Count 15 k/uL (150-450)
[2018-08-07] MEDS ORDERED: VANCOMYCIN IV PER PHARMACY 1 EACH MISC MISCELLANE PRN (07:14)
[2018-08-07] MEDS ORDERED: ANIDULAFUNGIN 200 MG in SODIUM CHLORIDE 0.9% 200 ML IVPB ONE (07:30)
[2018-08-07 08:12] LABS: Neutrophils % (M) 24 %
[2018-08-07 08:21] LABS: Blast Cells # (M) 0.06 k/uL (0); Lymphocytes # (M) 0.68 k/uL (1.0-4.8); Monocytes # (M) 0.02 k/uL (0-1.0); Neutrophils # (M) 0.24 k/uL (1.3-7.7); Nucleated Red Blood Cells 0 /100 WBC (0-0); Total Cells Counted 100
[2018-08-07] MEDS: VANCOMYCIN 1,500 MG in SODIUM CHLORIDE 0.9% 250 ML IVPB SCH ×2 (08:48→19:35)
[2018-08-07] MEDS: FAMOTIDINE 20 MG TAB PO SCH (09:40)
[2018-08-07] MEDS: NYSTATIN 100,000 UNIT/ML SUSP 500,000 UNIT/5 ML CUP PO SCH ×4 (09:40→19:35)
[2018-08-07] MEDS: amLODIPine 5 MG TAB PO SCH (09:40)
[2018-08-07] MEDS: FLUTICASONE 50MCG/SPRAY NASAL 16GM EA NOSTRIL SCH (09:40)
[2018-08-07] MEDS: METOPROLOL TARTRATE 50 MG TAB PO SCH (09:40)
[2018-08-07] MEDS: FLUCONAZOLE 100 MG TAB PO SCH (09:40)
[2018-08-07] MEDS: POTASSIUM CHLORIDE ER 20 MEQ TAB.ER PO SCH (09:41)
--- NOTE | 2018-08-07 13:08 | P.PN ---
Subjective Progress Note Date: 08/07/18 This is a 78-year-old male, patient of Dr. Goldberg. 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 Patient was recently hospitalized at the end of June with shingles and left periorbital cellulitis. Patient completed antibiotics and shingles treatment. He is currently at [facility] for rehabilitation. He was transferred to [facility] this morning due to mental status changes and confusion. Patient was then transferred to [facility] for further workup and evaluation. At [facility] computed tomography scan of the brain was negative for any stroke. Chest x-ray negative for any acute pulmonary process. Stool for occult blood was negative. He was found to have a hemoglobin of 4.6 and is scheduled for 2 units of blood today. White count was 1.4 platelets 10 creatinine 1.19. Oncology will be consulted. Patient has not had a chance to start chemotherapy treatment for his AML he has been too weak to undergo chemo treatment. He had a temperature 100.4 on admission. He is complaining of a sore throat does have sinus congestion and postnasal drip. Also has been having nosebleeds at the assisted. Patient has been picking he has scabs on his ear and scabs around his nose. He is still confused he knows his name only. Patient denies any chest pain or shortness of breath. Denies any nausea or vomiting. Does report having diarrhea. Stool be checked for C. diff. Denies any burning with urination. Patient also saw evidence of oral thrush and nystatin swish and swallow the added. He is already on Diflucan and Cipro for prophylaxis. Patient also complaining of some pain along the left side of the face. Known new injury. No tenderness with palpation. No swelling or lacerations noted. On 08/05/2018 patient is currently resting comfortably in bed. At this time patient denies chest pain or shortness of breath. Denies any nausea vomiting or diarrhea. Denies any burning with urination. patient did have elevated temperature 101.[address] Min for infectious disease has been consulted. Hemoglobin 5.2 this a.m. 2 units PRBCs have been ordered Per oncology. 08/06/2018 patient is currently on Levaquin and cefepime per infectious disease disease for questionable pneumonia. Order chest x-ray. Patient has been now afebrile. Stool for occult blood negative. Strep screen was negative. Urinalysis and urine culture negative for infection did show large blood. However at that time platelets are low at 10. Patient did receive 2 g of blood yesterday hemoglobin is now up to 6.6. White count 1.2 and platelets 12. Discussed case with oncology they will be ordering blood transfusion. They're also planning to have a family meeting tomorrow. 08/07/2018 patient's hemoglobin is 6.3 WBC 1 platelets 15. He is scheduled for another unit of blood today. He received a unit of blood yesterday. Had a high temp this morning of 101.4. Also had fevers yesterday. Infectious disease has adjusted antibiotics. He is currently on vancomycin and cefepime Levaquin and anidulafungin. Patient did have episodes of epistaxis yesterday evening. That resolved. Denies any chest pain or shortness of breath. Denies any nausea vomiting. Denies any bowel movement changes or urinary symptoms. Chest x-ray showing possible volume overload pulmonary venous hypertension and interstitial edema ammonia not excluded. BNP ordered BNP 4160. We'll Hep-Lock patient's IV fluids Objective - Vital Signs Vital signs: Vital Signs Temp 98.9 F 08/07/18 12:16 Pulse 72 08/07/18 12:16 Resp 18 08/07/18 12:16 BP 125/65 08/07/18 12:16 Pulse Ox 94 L 08/07/18 12:16 Intake & Output 08/06/18 08/07/18 08/07/18 18:59 06:59 18:59 Intake Total 760 1085 236 Balance 760 1085 236 Weight 80 kg Intake: Intake, IV Titration 725 Amount Cefepime 2 gm In Sodium 50 Chloride 0.9% 50 ml @ 100 mls/hr IVPB Q8HR [facility] Rx# :[id number] Sodium Chloride 0.9% 1, 675 000 ml @ 50 mls/hr IV . Q20H [facility] Rx#:[id number] Oral 760 50 236 Blood Product 0 310 Rc Irr As1 Unit 0 310 [id number] Other: Voiding Method Diaper Diaper Bedside Commode Diaper Incontinent # Voids 3 2 # Bowel Movements 1 - Exam Head normocephalic Neck supple Lungs clear to auscultation bilaterally no wheezing or crackles Heart regular rate and rhythm S1-S2, no rub or gallop Abdomen is soft nontender nondistended positive bowel sounds no hepatosplenomegaly Extremities no edema Neuro patient is alert and orientated 3 - Labs CBC & Chem 7: 08/07/18 05:39 08/07/18 05:39 Labs: Abnormal Lab Results - Last 24 Hours (Table) 08/05/18 08/07/18 08/07/18 Range/Units 09:24 05:39 05:39 WBC 1.0 L* (3.8-10.6) k/uL RBC 2.14 L (4.30-5.90) m/uL Hgb 6.3 L* (13.0-17.5) gm/dL Hct 18.4 L* (39.0-53.0) % RDW 17.9 H (11.5-15.5) % Plt Count 15 L* (150-450) k/uL Neutrophils # (Manual) 0.24 L* (1.3-7.7) k/uL Lymphocytes # (Manual) 0.68 L (1.0-4.8) k/uL Blast Cells # (Man) 0.06 H (0) k/uL Chloride 111 H (98-107) mmol/L BUN 30 H (9-20) mg/dL Total Protein 5.1 L (6.3-8.2) g/dL Albumin 2.7 L (3.5-5.0) g/dL Crossmatch See Detail Microbiology - Last 24 Hours (Table) 08/04/18 17:00 Group A Strep Throat Culture - Final Throat 08/04/18 16:52 Blood Culture - Preliminary Blood No Growth after 48 hours Assessment and Plan Assessment: 1. Altered mental status changes: Possibly related to metabolic encephalopathy due to significant anemia and infectious process. Possible pneumonia. Chest x- ray at [facility] was negative. Computed tomography scan of the brain at [facility] negative. Urine culture negative. Blood cultures remain negative. Strep screen negative. Patient no longer having diarrhea and unable to collect stool for C. diff. Hold Percocets 2. Pancytopenia: Possibly secondary to patient's AML. Oncology following 3. Anemia possibly secondary to patient's AML. However, patient has been having episodes of epistaxis may be some underlying acute blood loss anemia. Continue to monitor. We'll add ocean nasal spray. Hemoglobin down to 6.3. Patient did have another episode of epistaxis last night. He is scheduled for another unit of blood today. 4. Epistaxis: Add ocean nasal spray and monitor. 5. Sore throat with sinus congestion and postnasal drip. Add Flonase nasal spray. Resolved 6. Oral thrush possible contributing to patient's sore throat and nystatin swish and swallow 7. Recent hospitalization for herpes zoster. Resolved 8. Recent left periorbital cellulitis resolved 9. Acute myeloid leukemia: oncology following. They're planning to have a family meeting tomorrow. 10. 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 History of prostate cancer status post surgery and radiation treatment in 1998 12. Acute kidney injury: Creatinine 1.19 possibly related to dehydration. Continue function has shown improvement. 13. Fever with concerns of possible pneumonia. Patient continues to have fevers. Antibiotics adjusted per infectious disease. Patient currently on vancomycin, cefepime, Levaquin and anidulafungin 14. History of chronic systolic CHF. Chest x-ray showing interstitial edema. BNP elevated at 4000's. Hep-Lock IV. Resume patient's Lasix 20 mg by mouth daily Collagen meeting with family today at 1:00. GI prophylaxis Pepcid and DVT prophylaxis SCDs Consult physical therapy I performed an examination of the patient and discussed their management with the physician [place] Master. I have reviewed the Physician [place] Master's notes and agree with the documented findings and plan of care
[2018-08-07 14:47] VITALS: BMI 28.4
[2018-08-07] MEDS: FUROSEMIDE 20 MG TAB PO SCH (15:18)
--- NOTE | 2018-08-07 16:27 | P.PN ---
Subjective Progress Note Date: 08/07/18 The patient continues to have intermittent fevers. He is more alert and appropriate, but continues to be partially confused. No new skin lesions noted. He continues to have intermittent nosebleeds which are generally self- limiting. He reports regular bowel movements. No blood in the stool or urine noted. Objective - Vital Signs Vital signs: Vital Signs Temp 98.7 F 08/07/18 15:03 Pulse 83 08/07/18 15:03 Resp 17 08/07/18 15:03 BP 132/60 08/07/18 15:03 Pulse Ox 95 08/07/18 15:03 Intake & Output 08/06/18 08/07/18 08/07/18 18:59 06:59 18:59 Intake Total 760 1085 1172 Output Total 100 Balance 760 1085 1072 Weight 80 kg 80 kg Intake: Intake, IV Titration 725 450 Amount Anidulafungin 100 mg In 100 Sodium Chloride 0.9% 100 ml @ 84 mls/hr IVPB DAILY [facility] Rx#:[id number] Cefepime 2 gm In Sodium 50 100 Chloride 0.9% 50 ml @ 100 mls/hr IVPB Q8HR [facility] Rx# :[id number] Sodium Chloride 0.9% 1, 675 000 ml @ 20 mls/hr IV . Q24H [facility] Rx#:[id number] Vancomycin 1,500 mg In 250 Sodium Chloride 0.9% 250 ml @ 125 mls/hr IVPB Q12H [facility] Rx#:[id number] Oral 760 50 722 Blood Product 0 310 Rc Irr As1 Unit 0 310 [id number] Output: Urine/Stool Mix 100 Other: Voiding Method Diaper Diaper Bedside Commode Diaper Incontinent # Voids 3 2 # Bowel Movements 1 - Constitutional General appearance: Present: no acute distress - EENT Eyes: Present: EOMI ENT: Present: normal oropharynx - Respiratory Respiratory: bilateral: CTA - Cardiovascular Rhythm: regular Heart sounds: normal: S1, S2 - Gastrointestinal General gastrointestinal: Present: normal bowel sounds, soft - Integumentary Integumentary Comment(s): No new skin lesions noted. Prior zoster associated skin lesions are scabbed over Integumentary: Present: rash - Neurologic Neurologic: Present: CNII-XII intact - Musculoskeletal Musculoskeletal: Present: generalized weakness, strength equal bilaterally - Psychiatric Psychiatric Comment(s): Ovaries commands appropriately. More oriented compared to yesterday. However he is at least partially confused with poor recall - Labs CBC & Chem 7: 08/07/18 05:39 08/07/18 05:39 Labs: Abnormal Lab Results - Last 24 Hours (Table) 08/05/18 08/07/18 08/07/18 Range/Units 09:24 05:39 05:39 WBC 1.0 L* (3.8-10.6) k/uL RBC 2.14 L (4.30-5.90) m/uL Hgb 6.3 L* (13.0-17.5) gm/dL Hct 18.4 L* (39.0-53.0) % RDW 17.9 H (11.5-15.5) % Plt Count 15 L* (150-450) k/uL Neutrophils # (Manual) 0.24 L* (1.3-7.7) k/uL Lymphocytes # (Manual) 0.68 L (1.0-4.8) k/uL Blast Cells # (Man) 0.06 H (0) k/uL Chloride 111 H (98-107) mmol/L BUN 30 H (9-20) mg/dL Total Protein 5.1 L (6.3-8.2) g/dL Albumin 2.7 L (3.5-5.0) g/dL Crossmatch See Detail Microbiology - Last 24 Hours (Table) 08/04/18 17:00 Group A Strep Throat Culture - Final Throat 08/04/18 16:52 Blood Culture - Preliminary Blood No Growth after 48 hours Assessment and Plan (1) AML (acute myeloblastic leukemia) Narrative/Plan: Had a long discussion today with the patient, as well as his at the bedside. Initially the plan was for the patient to receive a hypomethylating agent, specifically Dacogen for his AML. However he was admitted to the hospital with shingles, and sepsis before he could start treatment. He became quite debilitated and had to be transferred to the [facility]. He is now readmitted with persistent, marked debility, persistent confusion, pancytopenia as well as febrile neutropenia. Given his current condition and events since his last admission, at this time it appears that his chances of improving his performance status to where he can have treatment and benefit from it, are quite poor. She was advised that the proposed treatment is not curative but can result in temporary remissions. The effectiveness is generally in the 45-50% range, with average improvement in survival in the range of 6-8 months. The patient's prognosis in this regard could be for her, given his marked debility and other issues. In addition the treatment may not be immediately effective and may take 8-12 weeks before benefit is noted. During that time, the patient would require aggressive supportive care, which would include regular blood draws, as well as frequent transfusions. In his debilitated state, it is not clear if he would be able to tolerate that. Therefore based on the above, it was felt that consideration of a comfort care approach is reasonable. She had several questions which were answered in detail. At this time she would like to consider the situation further and discuss with her children as well as as the patient and then make a decision. Continue current aggressive supportive treatment in the meantime Current Visit: Yes Status: Chronic Priority: High Code(s): C92.00 - ACUTE MYELOBLASTIC LEUKEMIA, NOT HAVING ACHIEVED REMISSION SNOMED Code(s): 38403217 (2) Pancytopenia Narrative/Plan: This continues to be severe and persistent. The patient continues to require transfusions daily. Hemoglobin today is again in the 6 range and additional transfusion has been ordered. Platelets are at 15,000 but the patient does not have any significant or persistent bleeding. Recently remains low. During his previous admission he had received filgrastim without response. Continue to monitor with supportive transfusions Current Visit: Yes Status: Chronic Priority: High Code(s): D61.818 - OTHER PANCYTOPENIA SNOMED Code(s): 780186481 (3) Neutropenic fever Narrative/Plan: He continues to have temperature spikes, despite aggressive broad-spectrum antibiotics. Continue antibiotics per ID. Cultures are negative. Tumor fever is also possibility Current Visit: No Status: Acute Priority: High Code(s): D70.9 - NEUTROPENIA, UNSPECIFIED SNOMED Code(s): 046249947
[2018-08-07] MEDS: LEVOFLOXACIN 500 MG TAB PO SCH (19:35)
[2018-08-07] MEDS: ALPRAZolam 0.25 MG TAB PO PRN (21:03)
[2018-08-07] MEDS: HYDROcodone/APAP 10-325MG 1 EACH TAB PO PRN (23:18)
[2018-08-08] MEDS: CEFEPIME 2 GM in SODIUM CHLORIDE 0.9% 50 ML IVPB SCH ×2 (07:14→15:53)
[2018-08-08 07:54] LABS: ALT 35 U/L (21-72); AST 17 U/L (17-59); Albumin 2.9 g/dL (3.5-5.0); Alkaline Phosphatase 47 U/L (38-126); Anion Gap 7 mmol/L; Blood Urea Nitrogen 29 mg/dL (9-20); Calcium 8.9 mg/dL (8.4-10.2); Carbon Dioxide 26 mmol/L (22-30); Chloride 109 mmol/L (98-107); Glucose 97 mg/dL (74-99); Potassium 3.8 mmol/L (3.5-5.1); Sodium 142 mmol/L (137-145); Total Protein 5.4 g/dL (6.3-8.2)
[2018-08-08 08:03] LABS: Anisocytosis Slight; HCT 21.8 % (39.0-53.0); HGB 7.5 gm/dL (13.0-17.5); MCH 30.4 pg (25.0-35.0); MCHC 34.6 g/dL (31.0-37.0); MCV 87.9 fL (80.0-100.0); Mean Platelet Volume 12.9; RBC 2.48 m/uL (4.30-5.90); RDW 17.4 % (11.5-15.5)
[2018-08-08 08:09] LABS: Platelet Count 12 k/uL (150-450); WBC 1.2 k/uL (3.8-10.6)
[2018-08-08 08:43] LABS: Band Neutrophils % 1 %; Blast Cells # (M) 0.01 k/uL (0); Eosinophils # (M) 0.02 k/uL (0-0.7); Lymphocytes # (M) 0.72 k/uL (1.0-4.8); Metamyelocytes # (M) 0.04 k/uL (0); Metamyelocytes % 3 %; Monocytes # (M) 0.04 k/uL (0-1.0); Neutrophils % (M) 31 %; Nucleated Red Blood Cells 0 /100 WBC (0-0); Polychromasia Present; Promyelocytes # (M) 0.01 k/uL (0); Promyelocytes % 1 %; Total Cells Counted 200
[2018-08-08] MEDS: FAMOTIDINE 20 MG TAB PO SCH (09:10)
[2018-08-08] MEDS: amLODIPine 5 MG TAB PO SCH (09:10)
[2018-08-08] MEDS: VANCOMYCIN 1,500 MG in SODIUM CHLORIDE 0.9% 250 ML IVPB SCH ×2 (09:10→19:58)
[2018-08-08] MEDS: FLUTICASONE 50MCG/SPRAY NASAL 16GM EA NOSTRIL SCH (09:10)
[2018-08-08] MEDS: FUROSEMIDE 20 MG TAB PO SCH (09:11)
[2018-08-08] MEDS: NYSTATIN 100,000 UNIT/ML SUSP 500,000 UNIT/5 ML CUP PO SCH ×4 (09:11→22:13)
[2018-08-08] MEDS: METOPROLOL TARTRATE 50 MG TAB PO SCH (09:11)
[2018-08-08] MEDS: POTASSIUM CHLORIDE ER 20 MEQ TAB.ER PO SCH (09:12)
[2018-08-08] MEDS: ANIDULAFUNGIN 100 MG in SODIUM CHLORIDE 0.9% 100 ML IVPB SCH (09:31)
--- NOTE | 2018-08-08 12:02 | P.PN ---
Subjective Progress Note Date: 08/08/18 This is a 78-year-old male, patient of Dr. Goldberg. 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 Patient was recently hospitalized at the end of June with shingles and left periorbital cellulitis. Patient completed antibiotics and shingles treatment. He is currently at [facility] for rehabilitation. He was transferred to [facility] this morning due to mental status changes and confusion. Patient was then transferred to [facility] for further workup and evaluation. At [facility] computed tomography scan of the brain was negative for any stroke. Chest x-ray negative for any acute pulmonary process. Stool for occult blood was negative. He was found to have a hemoglobin of 4.6 and is scheduled for 2 units of blood today. White count was 1.4 platelets 10 creatinine 1.19. Oncology will be consulted. Patient has not had a chance to start chemotherapy treatment for his AML he has been too weak to undergo chemo treatment. He had a temperature 100.4 on admission. He is complaining of a sore throat does have sinus congestion and postnasal drip. Also has been having nosebleeds at the alf. Patient has been picking he has scabs on his ear and scabs around his nose. He is still confused he knows his name only. Patient denies any chest pain or shortness of breath. Denies any nausea or vomiting. Does report having diarrhea. Stool be checked for C. diff. Denies any burning with urination. Patient also saw evidence of oral thrush and nystatin swish and swallow the added. He is already on Diflucan and Cipro for prophylaxis. Patient also complaining of some pain along the left side of the face. Known new injury. No tenderness with palpation. No swelling or lacerations noted. On 08/05/2018 patient is currently resting comfortably in bed. At this time patient denies chest pain or shortness of breath. Denies any nausea vomiting or diarrhea. Denies any burning with urination. patient did have elevated temperature 101.[address] Min for infectious disease has been consulted. Hemoglobin 5.2 this a.m. 2 units PRBCs have been ordered Per oncology. 08/06/2018 patient is currently on Levaquin and cefepime per infectious disease disease for questionable pneumonia. Order chest x-ray. Patient has been now afebrile. Stool for occult blood negative. Strep screen was negative. Urinalysis and urine culture negative for infection did show large blood. However at that time platelets are low at 10. Patient did receive 2 g of blood yesterday hemoglobin is now up to 6.6. White count 1.2 and platelets 12. Discussed case with oncology they will be ordering blood transfusion. They're also planning to have a family meeting tomorrow. 08/07/2018 patient's hemoglobin is 6.3 WBC 1 platelets 15. He is scheduled for another unit of blood today. He received a unit of blood yesterday. Had a high temp this morning of 101.4. Also had fevers yesterday. Infectious disease has adjusted antibiotics. He is currently on vancomycin and cefepime Levaquin and anidulafungin. Patient did have episodes of epistaxis yesterday evening. That resolved. Denies any chest pain or shortness of breath. Denies any nausea vomiting. Denies any bowel movement changes or urinary symptoms. Chest x-ray showing possible volume overload pulmonary venous hypertension and interstitial edema ammonia not excluded. BNP ordered BNP 4160. We'll Hep-Lock patient's IV fluids On 08/08/2018 patient is alert slightly confused in no apparent distress, temperature is 101, blood pressure 157/61, pulse ox 93% on room air, patient is complaining of occasional cough otherwise no complaints there is no chest pain or shortness of breath, no nausea or vomiting no abdominal pain no diarrhea and no urinary symptoms Objective - Vital Signs Vital signs: Vital Signs Temp 100.4 F H 08/08/18 09:33 Pulse 108 H 08/08/18 09:33 Resp 16 08/08/18 09:33 BP 154/77 08/08/18 09:33 Pulse Ox 94 L 08/08/18 09:33 Intake & Output 08/07/18 08/08/18 08/08/18 18:59 06:59 18:59 Intake Total 1408 790 210 Output Total 300 Balance 1108 790 210 Weight 80 kg 97.6 kg Intake: IV 20 10 Invasive Line 2 20 10 Intake, IV Titration 450 400 Amount Anidulafungin 100 mg In 100 Sodium Chloride 0.9% 100 ml @ 84 mls/hr IVPB DAILY [facility] Rx#:[id number] Cefepime 2 gm In Sodium 100 50 Chloride 0.9% 50 ml @ 100 mls/hr IVPB Q8HR [facility] Rx# :[id number] Sodium Chloride 0.9% 1, 100 000 ml @ 20 mls/hr IV . Q24H [facility] Rx#:[id number] Vancomycin 1,500 mg In 250 250 Sodium Chloride 0.9% 250 ml @ 125 mls/hr IVPB Q12H [facility] Rx#:[id number] Oral 958 60 200 Blood Product 310 Rc Irr As1 Unit 310 [id number] Output: Urine 200 Urine/Stool Mix 100 Other: Voiding Method Bedside Commode Bedside Commode Bedside Commode Diaper Diaper Diaper Incontinent Incontinent Incontinent # Voids 1 2 # Bowel Movements 1 - Exam Head normocephalic, and atraumatic, healing scabbing lesions of recent zoster eruption on the left side of the face Neck supple no JVD no goiter Lungs clear to auscultation bilaterally no wheezing or crackles Heart regular rate and rhythm S1-S2, no rub or gallop Abdomen is soft nontender nondistended positive bowel sounds no hepatosplenomegaly Extremities no edema no cyanosis or clubbing Neuro patient is alert and orientated 3 - Labs CBC & Chem 7: 08/08/18 06:52 08/08/18 06:52 Labs: Abnormal Lab Results - Last 24 Hours (Table) 08/05/18 08/08/18 08/08/18 Range/Units 09:24 06:52 06:52 WBC 1.2 L* (3.8-10.6) k/uL RBC 2.48 L (4.30-5.90) m/uL Hgb 7.5 L (13.0-17.5) gm/dL Hct 21.8 L (39.0-53.0) % RDW 17.4 H (11.5-15.5) % Plt Count 12 L* (150-450) k/uL Neutrophils # (Manual) 0.30 L* (1.3-7.7) k/uL Lymphocytes # (Manual) 0.72 L (1.0-4.8) k/uL Metamyelocytes # (Man) 0.04 H (0) k/uL Promyelocytes # (Man) 0.01 H (0) k/uL Blast Cells # (Man) 0.01 H (0) k/uL Chloride 109 H (98-107) mmol/L BUN 29 H (9-20) mg/dL Total Protein 5.4 L (6.3-8.2) g/dL Albumin 2.9 L (3.5-5.0) g/dL Crossmatch See Detail Microbiology - Last 24 Hours (Table) 08/07/18 08:03 Blood Culture - Preliminary Blood No Growth after 24 hours 08/07/18 05:39 Blood Culture - Preliminary Blood No Growth after 24 hours 08/04/18 16:52 Blood Culture - Preliminary Blood No Growth after 72 hours 08/04/18 17:00 Group A Strep Throat Culture - Final Throat Assessment and Plan Plan: 1. Altered mental status changes: Possibly related to metabolic encephalopathy due to significant anemia and infectious process. Possible pneumonia. Chest x- ray at [facility] was negative. Computed tomography scan of the brain at [facility] negative. Urine culture negative. Blood cultures remain negative. Strep screen negative. Patient no longer having diarrhea and unable to collect stool for C. diff. Hold Percocets 2. Pancytopenia: Possibly secondary to patient's AML. Oncology following 3. Anemia possibly secondary to patient's AML. However, patient has been having episodes of epistaxis may be some underlying acute blood loss anemia. Continue to monitor. We'll add ocean nasal spray. Hemoglobin down to 6.3. Patient did have another episode of epistaxis last night. He is scheduled for another unit of blood today. 4. Epistaxis: Add ocean nasal spray and monitor. 5. Sore throat with sinus congestion and postnasal drip. Add Flonase nasal spray. Resolved 6. Oral thrush possible contributing to patient's sore throat and nystatin swish and swallow 7. Recent hospitalization for herpes zoster. Resolved 8. Recent left periorbital cellulitis resolved 9. Acute myeloid leukemia: oncology following. They're planning to have a family meeting tomorrow. 10. 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 History of prostate cancer status post surgery and radiation treatment in 1998 12. Acute kidney injury: Creatinine 1.19 possibly related to dehydration. Continue function has shown improvement. 13. Fever with concerns of possible pneumonia. Patient continues to have fevers. Antibiotics adjusted per infectious disease. Patient currently on vancomycin, cefepime, Levaquin and anidulafungin 14. History of chronic systolic CHF. Chest x-ray showing interstitial edema. BNP elevated at 4000's. Hep-Lock IV. Resume patient's Lasix 20 mg by mouth daily At this time awaiting further treatment plan per oncology Patient and family will decide regarding further treatment for AML GI prophylaxis Pepcid and DVT prophylaxis SCDs Consult physical therapy
[2018-08-08] MEDS: ACETAMINOPHEN TAB 325 MG TAB PO PRN ×2 (13:15→19:57)
--- NOTE | 2018-08-08 16:34 | XR ---
EXAMINATION TYPE: XR Hip Limited LT DATE OF EXAM: 08/08/2018 COMPARISON: NONE HISTORY: Left hip pain TECHNIQUE: Single view FINDINGS: I see no fracture nor dislocation. Joint spaces are normal. Acetabulum appears intact. IMPRESSION: Negative left hip exam.
[2018-08-08] MEDS: HYDROcodone/APAP 10-325MG 1 EACH TAB PO PRN (18:42)
[2018-08-08] MEDS: LEVOFLOXACIN 500 MG TAB PO SCH (22:13)
[2018-08-09] MEDS: CEFEPIME 2 GM in SODIUM CHLORIDE 0.9% 50 ML IVPB SCH ×3 (00:22→16:22)
[2018-08-09] MEDS: SODIUM CHLORIDE 0.9% 1,000 ML IV SCH (00:22)
[2018-08-09] MEDS: ACETAMINOPHEN TAB 325 MG TAB PO PRN ×2 (01:18→16:06)
[2018-08-09] MEDS: ALPRAZolam 0.25 MG TAB PO PRN (01:23)
[2018-08-09] MEDS ORDERED: VANCOMYCIN TROUGH DUE 1 EACH MISC MISCELLANE ONE (07:00)
[2018-08-09] MEDS: FLUTICASONE 50MCG/SPRAY NASAL 16GM EA NOSTRIL SCH (09:05)
[2018-08-09] MEDS: FUROSEMIDE 20 MG TAB PO SCH (09:06)
[2018-08-09] MEDS: METOPROLOL TARTRATE 50 MG TAB PO SCH (09:06)
[2018-08-09] MEDS: FAMOTIDINE 20 MG TAB PO SCH (09:06)
[2018-08-09] MEDS: VANCOMYCIN 1,500 MG in SODIUM CHLORIDE 0.9% 250 ML IVPB SCH ×2 (09:06→20:22)
[2018-08-09] MEDS: amLODIPine 5 MG TAB PO SCH (09:06)
[2018-08-09] MEDS: NYSTATIN 100,000 UNIT/ML SUSP 500,000 UNIT/5 ML CUP PO SCH ×4 (09:06→22:02)
[2018-08-09] MEDS: POTASSIUM CHLORIDE ER 20 MEQ TAB.ER PO SCH (09:06)
[2018-08-09] MEDS: ANIDULAFUNGIN 100 MG in SODIUM CHLORIDE 0.9% 100 ML IVPB SCH (10:45)
[2018-08-09] MEDS: HYDROcodone/APAP 10-325MG 1 EACH TAB PO PRN ×2 (11:19→19:42)
--- NOTE | 2018-08-09 14:53 | P.PN ---
Subjective Progress Note Date: 08/09/18 This is a 78-year-old male, patient of Dr. Goldberg. 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 Patient was recently hospitalized at the end of June with shingles and left periorbital cellulitis. Patient completed antibiotics and shingles treatment. He is currently at [facility] for rehabilitation. He was transferred to [facility] this morning due to mental status changes and confusion. Patient was then transferred to [facility] for further workup and evaluation. At [facility] computed tomography scan of the brain was negative for any stroke. Chest x-ray negative for any acute pulmonary process. Stool for occult blood was negative. He was found to have a hemoglobin of 4.6 and is scheduled for 2 units of blood today. White count was 1.4 platelets 10 creatinine 1.19. Oncology will be consulted. Patient has not had a chance to start chemotherapy treatment for his AML he has been too weak to undergo chemo treatment. He had a temperature 100.4 on admission. He is complaining of a sore throat does have sinus congestion and postnasal drip. Also has been having nosebleeds at the [facility]. Patient has been picking he has scabs on his ear and scabs around his nose. He is still confused he knows his name only. Patient denies any chest pain or shortness of breath. Denies any nausea or vomiting. Does report having diarrhea. Stool be checked for C. diff. Denies any burning with urination. Patient also saw evidence of oral thrush and nystatin swish and swallow the added. He is already on Diflucan and Cipro for prophylaxis. Patient also complaining of some pain along the left side of the face. Known new injury. No tenderness with palpation. No swelling or lacerations noted. On 08/05/2018 patient is currently resting comfortably in bed. At this time patient denies chest pain or shortness of breath. Denies any nausea vomiting or diarrhea. Denies any burning with urination. patient did have elevated temperature 101.[address] Min for infectious disease has been consulted. Hemoglobin 5.2 this a.m. 2 units PRBCs have been ordered Per oncology. 08/06/2018 patient is currently on Levaquin and cefepime per infectious disease disease for questionable pneumonia. Order chest x-ray. Patient has been now afebrile. Stool for occult blood negative. Strep screen was negative. Urinalysis and urine culture negative for infection did show large blood. However at that time platelets are low at 10. Patient did receive 2 g of blood yesterday hemoglobin is now up to 6.6. White count 1.2 and platelets 12. Discussed case with oncology they will be ordering blood transfusion. They're also planning to have a family meeting tomorrow. 08/07/2018 patient's hemoglobin is 6.3 WBC 1 platelets 15. He is scheduled for another unit of blood today. He received a unit of blood yesterday. Had a high temp this morning of 101.4. Also had fevers yesterday. Infectious disease has adjusted antibiotics. He is currently on vancomycin and cefepime Levaquin and anidulafungin. Patient did have episodes of epistaxis yesterday evening. That resolved. Denies any chest pain or shortness of breath. Denies any nausea vomiting. Denies any bowel movement changes or urinary symptoms. Chest x-ray showing possible volume overload pulmonary venous hypertension and interstitial edema ammonia not excluded. BNP ordered BNP 4160. We'll Hep-Lock patient's IV fluids On 08/08/2018 patient is alert slightly confused in no apparent distress, temperature is 101, blood pressure 157/61, pulse ox 93% on room air, patient is complaining of occasional cough otherwise no complaints there is no chest pain or shortness of breath, no nausea or vomiting no abdominal pain no diarrhea and no urinary symptoms. On 08/09/2018 patient is more confused today he is alert in no apparent distress he denies any symptoms at this time. Medication reviewed patient has been maintained on antibiotic he had a recent herpes zoster eruption and currently he is not on any antiviral medication nurse will contact infectious disease to reassess patient today in that regard Objective - Vital Signs Vital signs: Vital Signs Temp 98.0 F 08/09/18 06:35 Pulse 95 08/09/18 06:35 Resp 22 08/09/18 06:35 BP 129/66 08/09/18 06:35 Pulse Ox 95 08/09/18 08:38 Intake & Output 08/08/18 08/09/18 08/09/18 18:59 06:59 18:59 Intake Total 610 Balance 610 Weight 103 kg Intake: IV 10 Invasive Line 2 10 Intake, IV Titration 400 Amount Anidulafungin 100 mg In 100 Sodium Chloride 0.9% 100 ml @ 84 mls/hr IVPB DAILY [facility] Rx#:[id number] Cefepime 2 gm In Sodium 50 Chloride 0.9% 50 ml @ 100 mls/hr IVPB Q8HR [facility] Rx# :[id number] Vancomycin 1,500 mg In 250 Sodium Chloride 0.9% 250 ml @ 125 mls/hr IVPB Q12H [facility] Rx#:[id number] Oral 200 Other: Voiding Method Bedside Commode Bedside Commode Diaper Diaper Incontinent Incontinent # Voids 2 4 # Bowel Movements 0 - Exam Head normocephalic, and atraumatic, healing scabbing lesions of recent zoster eruption on the left side of the face Neck supple no JVD no goiter Lungs clear to auscultation bilaterally no wheezing or crackles Heart regular rate and rhythm S1-S2, no rub or gallop Abdomen is soft nontender nondistended positive bowel sounds no hepatosplenomegaly Extremities no edema no cyanosis or clubbing Neuro patient is alert and orientated 3 - Labs CBC & Chem 7: 08/08/18 06:52 08/08/18 06:52 Labs: Microbiology - Last 24 Hours (Table) 08/07/18 08:03 Blood Culture - Preliminary Blood No Growth after 48 hours 08/07/18 05:39 Blood Culture - Preliminary Blood No Growth after 48 hours 08/04/18 16:52 Blood Culture - Preliminary Blood No Growth after 96 hours Assessment and Plan Plan: 1. Altered mental status changes: Possibly related to metabolic encephalopathy due to significant anemia and infectious process. Possible pneumonia. Chest x- ray at [facility] was negative. Computed tomography scan of the brain at [facility] negative. Urine culture negative. Blood cultures remain negative. Strep screen negative. Patient no longer having diarrhea and unable to collect stool for C. diff. Hold Percocets 2. Pancytopenia: Possibly secondary to patient's AML. Oncology following 3. Anemia possibly secondary to patient's AML. However, patient has been having episodes of epistaxis may be some underlying acute blood loss anemia. Continue to monitor. We'll add ocean nasal spray. Hemoglobin down to 6.3. Patient did have another episode of epistaxis last night. He is scheduled for another unit of blood today. 4. Epistaxis: Add ocean nasal spray and monitor. 5. Sore throat with sinus congestion and postnasal drip. Add Flonase nasal spray. Resolved 6. Oral thrush possible contributing to patient's sore throat and nystatin swish and swallow 7. Recent hospitalization for herpes zoster. Resolved 8. Recent left periorbital cellulitis resolved 9. Acute myeloid leukemia: oncology following. They're planning to have a family meeting tomorrow. 10. 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 History of prostate cancer status post surgery and radiation treatment in 1998 12. Acute kidney injury: Creatinine 1.19 possibly related to dehydration. Continue function has shown improvement. 13. Fever with concerns of possible pneumonia. Patient continues to have fevers. Antibiotics adjusted per infectious disease. Patient currently on vancomycin, cefepime, Levaquin and anidulafungin 14. History of chronic systolic CHF. Chest x-ray showing interstitial edema. BNP elevated at 4000's. Hep-Lock IV. Resume patient's Lasix 20 mg by mouth daily At this time awaiting further treatment plan per oncology Patient and family will decide regarding further treatment for AML GI prophylaxis Pepcid and DVT prophylaxis SCDs Consult physical therapy
[2018-08-09] MEDS ORDERED: BENZOCAINE/MENTHOL LOZENG 1 EACH LOZENGE MUCOUS MEM PRN (20:17)
[2018-08-09] MEDS: LEVOFLOXACIN 500 MG TAB PO SCH (22:03)
--- NOTE | 2018-08-09 23:41 | PN ---
PROGRESS NOTE DATE OF SERVICE: 08/09/2018. REASON FOR FOLLOWUP: Persistent fever and confusion. INTERVAL HISTORY: I was asked by the admitting physician to evaluate the patient today because of his persistent fever and confusion. Patient who is a 78-year-old male with a past medical history significant for ALL initially diagnosed in 2012 in [place] in a patient who has been on maintenance therapy after initial induction of therapy. The patient did have a recent CBC followed by a bone marrow biopsy that were consistent with AML with the plan for possible starting Dacogen. However, the patient was admitted to the hospital with severe shingles for which the patient has been adequately treated. The patient is now presenting back to the hospital on 08/04/2018 for evaluation of confusion and anemia. The patient noticed to have low hemoglobin on this admission. The patient has been running fever on a daily basis. On admission he did have a fever of 100.4 and seemed to have a T spike a fever with 100.5, less than 100 today. The patient did have periods of confusion. The patient denies any headache to me. The patient did mention that he knows that he he says he is in [place]. Denies having any URI symptoms. No chest pain. He did have some cough but not bringing up any sputum. He was noticed to have a choking on his pills that was given to him by the RN when he was trying to take them. Denies any abdominal pain or any diarrhea. The patient also noticed to have a bruise on his left lower lobe posterior trunk area. He did have some pain in that area. Unable to clarify any further. Most of the information has been obtained from review of chart 20 with this as well as the patient . The patient not a very good historian. The patient currently has been diagnosed with pneumonia and is currently on cefepime 2 g q.8 hours in addition to the Levaquin and vancomycin as well as the differential. REVIEW OF SYSTEMS: Positive points as mentioned in HPI. Other systems have been negative. Past medical and surgical history no change. Medications reviewed. EXAMINATION: Blood pressure is 137/67 with a pulse of 94, temperature of 100. He is 93% on room air. General description is an elderly male up in the bed in no distress. HEENT: Shows slight pallor. No scleral icterus. Oral mucosa is dry. Neck trachea. No thyromegaly. LUNGS: Unlabored breathing. Decreased breath sounds in the bases, no wheeze. Heart S1, S2. Regular rate and rhythm. Abdomen soft, no tenderness. Extremities: No edema of the feet. Examination of the skin area did have breakthroughs on the left posterior trunk area, slightly warm to touch. Neurological: Patient is awake, alert, oriented x1. No signs of meningeal irritation. LABS: No new labs have been obtained today. Yesterday, his white count was 1.2, hemoglobin 7.5. Platelet count is 12. BUN of 29, creatinine 0.83. Blood cultures on admission has been negative so far. Chest x-ray, suspicious for a pulmonary vascular hypertension and pneumonia not excluded. DIAGNOSTIC IMPRESSION AND PLAN: The patient with the diagnosis of acute myeloid leukemia for which the patient currently has not received any chemo. He did have evidence of pancytopenia. Did have the spikes with fever despite being on broader deep antibacterial as well as any antifungal coverage with his persistent fever related to underlying naturally suite. Other possibility would be recurrent aspiration pneumonitis. The patient was noticed to be choking and coughing when he was given the pills by the RN. We by strict aspiration precautions. Clinically doubt encephalitis as the patient did have off and on confusion and denied any headache to me and in view of his significant thrombocytopenia, I will be unable to do an LP to determine the same. Reviewing the oncology note, they are recommending possible comfort care which may be appropriate for him at this point in view of overall poor prognosis. We will keep the patient on the cefepime, vanco and Levaquin while observing his clinical course closely. was present at bedside. Questions were answered. Dr. Min will be back tomorrow and will continue to follow the patient. MMODL / IJN: [id number] /
[2018-08-10] MEDS: CEFEPIME 2 GM in SODIUM CHLORIDE 0.9% 50 ML IVPB SCH ×3 (00:02→17:57)
[2018-08-10] MEDS: SODIUM CHLORIDE 0.9% 1,000 ML IV SCH (00:03)
[2018-08-10] MEDS: ACETAMINOPHEN TAB 325 MG TAB PO PRN ×3 (02:09→18:41)
[2018-08-10] MEDS: NYSTATIN 100,000 UNIT/ML SUSP 500,000 UNIT/5 ML CUP PO SCH ×4 (08:34→21:47)
[2018-08-10] MEDS: VANCOMYCIN 1,500 MG in SODIUM CHLORIDE 0.9% 250 ML IVPB SCH ×2 (08:34→21:43)
[2018-08-10] MEDS: FAMOTIDINE 20 MG TAB PO SCH (08:34)
[2018-08-10] MEDS: FLUTICASONE 50MCG/SPRAY NASAL 16GM EA NOSTRIL SCH (08:35)
[2018-08-10] MEDS: FUROSEMIDE 20 MG TAB PO SCH (08:35)
[2018-08-10] MEDS: METOPROLOL TARTRATE 50 MG TAB PO SCH (08:35)
[2018-08-10] MEDS: amLODIPine 5 MG TAB PO SCH (08:35)
[2018-08-10] MEDS: POTASSIUM CHLORIDE ER 20 MEQ TAB.ER PO SCH (08:35)
[2018-08-10 09:44] LABS: Anisocytosis Slight; HCT 20.7 % (39.0-53.0); MCH 29.7 pg (25.0-35.0); MCHC 33.4 g/dL (31.0-37.0); RBC 2.32 m/uL (4.30-5.90); RDW 17.1 % (11.5-15.5)
[2018-08-10 09:47] LABS: HGB 6.9 gm/dL (13.0-17.5)
[2018-08-10 09:48] LABS: Platelet Count 11 k/uL (150-450)
[2018-08-10] MEDS: HYDROcodone/APAP 10-325MG 1 EACH TAB PO PRN (09:50)
[2018-08-10 10:43] LABS: ALT 30 U/L (21-72); AST 15 U/L (17-59); Albumin 2.8 g/dL (3.5-5.0); Alkaline Phosphatase 44 U/L (38-126); Anion Gap 8 mmol/L; Blood Urea Nitrogen 33 mg/dL (9-20); Calcium 8.8 mg/dL (8.4-10.2); Carbon Dioxide 26 mmol/L (22-30); Chloride 108 mmol/L (98-107); Glucose 128 mg/dL (74-99); Potassium 4.1 mmol/L (3.5-5.1); Sodium 142 mmol/L (137-145); Total Bilirubin 0.7 mg/dL (0.2-1.3); Total Protein 5.1 g/dL (6.3-8.2)
[2018-08-10 10:47] LABS: Band Neutrophils % 1 %; Eosinophils # (M) 0.03 k/uL (0-0.7); Lymphocytes # (M) 0.67 k/uL (1.0-4.8); Monocytes # (M) 0.01 k/uL (0-1.0); Neutrophils % (M) 20 %
[2018-08-10 10:48] LABS: Blast Cells # (M) 0.08 k/uL (0); Nucleated Red Blood Cells 0 /100 WBC (0-0); Poikilocytosis (M) Present; Total Cells Counted 100
[2018-08-10] MEDS: ANIDULAFUNGIN 100 MG in SODIUM CHLORIDE 0.9% 100 ML IVPB SCH (11:12)
--- NOTE | 2018-08-10 12:58 | P.PN ---
Subjective Progress Note Date: 08/10/18 This is a 78-year-old male, patient of Dr. Goldberg. 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 Patient was recently hospitalized at the end of June with shingles and left periorbital cellulitis. Patient completed antibiotics and shingles treatment. He is currently at [facility] for rehabilitation. He was transferred to [facility] this morning due to mental status changes and confusion. Patient was then transferred to [facility] for further workup and evaluation. At [facility] computed tomography scan of the brain was negative for any stroke. Chest x-ray negative for any acute pulmonary process. Stool for occult blood was negative. He was found to have a hemoglobin of 4.6 and is scheduled for 2 units of blood today. White count was 1.4 platelets 10 creatinine 1.19. Oncology will be consulted. Patient has not had a chance to start chemotherapy treatment for his AML he has been too weak to undergo chemo treatment. He had a temperature 100.4 on admission. He is complaining of a sore throat does have sinus congestion and postnasal drip. Also has [facility]. Patient has been picking he has scabs on his ear and scabs around his nose. He is still confused he knows his name only. Patient denies any chest pain or shortness of breath. Denies any nausea or vomiting. Does report having diarrhea. Stool be checked for C. diff. Denies any burning with urination. Patient also saw evidence of oral thrush and nystatin swish and swallow the added. He is already on Diflucan and Cipro for prophylaxis. Patient also complaining of some pain along the left side of the face. Known new injury. No tenderness with palpation. No swelling or lacerations noted. On 08/05/2018 patient is currently resting comfortably in bed. At this time patient denies chest pain or shortness of breath. Denies any nausea vomiting or diarrhea. Denies any burning with urination. patient did have elevated temperature 101.[address] Min for infectious disease has been consulted. Hemoglobin 5.2 this a.m. 2 units PRBCs have been ordered Per oncology. 08/06/2018 patient is currently on Levaquin and cefepime per infectious disease disease for questionable pneumonia. Order chest x-ray. Patient has been now afebrile. Stool for occult blood negative. Strep screen was negative. Urinalysis and urine culture negative for infection did show large blood. However at that time platelets are low at 10. Patient did receive 2 g of blood yesterday hemoglobin is now up to 6.6. White count 1.2 and platelets 12. Discussed case with oncology they will be ordering blood transfusion. They're also planning to have a family meeting tomorrow. 08/07/2018 patient's hemoglobin is 6.3 WBC 1 platelets 15. He is scheduled for another unit of blood today. He received a unit of blood yesterday. Had a high temp this morning of 101.4. Also had fevers yesterday. Infectious disease has adjusted antibiotics. He is currently on vancomycin and cefepime Levaquin and anidulafungin. Patient did have episodes of epistaxis yesterday evening. That resolved. Denies any chest pain or shortness of breath. Denies any nausea vomiting. Denies any bowel movement changes or urinary symptoms. Chest x-ray showing possible volume overload pulmonary venous hypertension and interstitial edema ammonia not excluded. BNP ordered BNP 4160. We'll Hep-Lock patient's IV fluids On 08/08/2018 patient is alert slightly confused in no apparent distress, temperature is 101, blood pressure 157/61, pulse ox 93% on room air, patient is complaining of occasional cough otherwise no complaints there is no chest pain or shortness of breath, no nausea or vomiting no abdominal pain no diarrhea and no urinary symptoms. On 08/09/2018 patient is more confused today he is alert in no apparent distress he denies any symptoms at this time. Medication reviewed patient has been maintained on antibiotic he had a recent herpes zoster eruption and currently he is not on any antiviral medication nurse will contact infectious disease to reassess patient today in that regard On 08/10/2018 patient is alert but remains confused at times. Patient denies chest pain or shortness of breath. Patient denies nausea diarrhea or vomiting. Patient denies any urinary burning or frequency. Patient's hemoglobin does still remain low at 6.9. 1 unit PRBCs has been ordered per oncology. Objective - Vital Signs Vital signs: Vital Signs Temp 101.0 F H 08/10/18 11:21 Pulse 98 08/10/18 06:40 Resp 16 08/10/18 06:40 BP 142/64 08/10/18 06:40 Pulse Ox 94 L 08/10/18 06:40 Intake & Output 08/09/18 08/10/18 08/10/18 18:59 06:59 18:59 Intake Total 120 Balance 120 Weight 100.5 kg Intake: Oral 120 Other: # Voids 5 3 # Bowel Movements 0 0 - Exam Head normocephalic, and atraumatic, healing scabbing lesions of recent zoster eruption on the left side of the face Neck supple no JVD no goiter Lungs clear to auscultation bilaterally no wheezing or crackles Heart regular rate and rhythm S1-S2, no rub or gallop Abdomen is soft nontender nondistended positive bowel sounds no hepatosplenomegaly Extremities no edema no cyanosis or clubbing - Labs CBC & Chem 7: 08/10/18 08:55 08/10/18 08:55 Labs: Abnormal Lab Results - Last 24 Hours (Table) 08/08/18 08/10/18 08/10/18 Range/Units 06:52 08:55 08:55 WBC 1.0 L* (3.8-10.6) k/uL RBC 2.32 L (4.30-5.90) m/uL Hgb 6.9 L* (13.0-17.5) gm/dL Hct 20.7 L (39.0-53.0) % RDW 17.1 H (11.5-15.5) % Plt Count 11 L* (150-450) k/uL Neutrophils # (Manual) 0.30 L* 0.20 L* (1.3-7.7) k/uL Lymphocytes # (Manual) 0.67 L (1.0-4.8) k/uL Blast Cells # (Man) 0.08 H (0) k/uL Chloride 108 H (98-107) mmol/L BUN 33 H (9-20) mg/dL Glucose 128 H (74-99) mg/dL AST 15 L (17-59) U/L Total Protein 5.1 L (6.3-8.2) g/dL Albumin 2.8 L (3.5-5.0) g/dL Microbiology - Last 24 Hours (Table) 08/07/18 08:03 Blood Culture - Preliminary Blood No Growth after 72 hours 08/07/18 05:39 Blood Culture - Preliminary Blood No Growth after 72 hours 08/04/18 16:52 Blood Culture - Preliminary Blood No Growth after 120 hours Assessment and Plan Assessment: 1. Altered mental status changes: Possibly related to metabolic encephalopathy due to significant anemia and infectious process. Possible pneumonia. Chest x- ray at [facility] was negative. Computed tomography scan of the brain at [facility] negative. Urine culture negative. Blood cultures remain negative. Strep screen negative. Patient no longer having diarrhea and unable to collect stool for C. diff. Hold Percocets. Patient remains on anidulafungin , Levaquin and vancomycin per infectious disease. 2. Pancytopenia: Possibly secondary to patient's AML. Oncology following 3. Anemia possibly secondary to patient's AML. However, patient has been having episodes of epistaxis may be some underlying acute blood loss anemia. Continue to monitor. We'll add ocean nasal spray. Hemoglobin down to 6.3. Patient did have another episode of epistaxis last night. Patient's hemoglobin 6.9 today oncology has ordered 1 unit of PRBCs. 4. Epistaxis: Add ocean nasal spray and monitor. 5. Sore throat with sinus congestion and postnasal drip. Add Flonase nasal spray. Resolved 6. Oral thrush possible contributing to patient's sore throat and nystatin swish and swallow 7. Recent hospitalization for herpes zoster. Resolved 8. Recent left periorbital cellulitis resolved 9. Acute myeloid leukemia: oncology following. Per nursing family meeting held with Dr. harris. Awaiting family decision for further plan. 10. History of AML and 2013 status post chemotherapy 11. History of prostate cancer status post surgery and radiation treatment in 1998 12. Acute kidney injury: Creatinine 1.19 possibly related to dehydration. Kindney function has shown improvement. 13. Fever with concerns of possible pneumonia. Patient continues to have fevers. Antibiotics adjusted per infectious disease. Patient currently on vancomycin, cefepime, Levaquin and anidulafungin. Patient now having cough. Chest x-ray has been ordered. 14. History of chronic systolic CHF. Chest x-ray showing interstitial edema. BNP elevated at 4000's. Hep-Lock IV. Resume patient's Lasix 20 mg by mouth daily At this time awaiting further treatment plan per oncology Patient and family will decide regarding further treatment for AML GI prophylaxis Pepcid and DVT prophylaxis SCDs Consult physical therapy I performed an examination of the patient and discussed their management with the Nurse Practitioner. I have reviewed the Nurse Practitioner's notes and agree with the documented findings and plan of care
--- NOTE | 2018-08-10 15:41 | XR ---
EXAMINATION TYPE: XR chest 2V DATE OF EXAM: 08/10/2018 COMPARISON: July 16, 2018 HISTORY: Shortness of breath TECHNIQUE: Frontal and lateral views of the chest are obtained. FINDINGS: Scattered senescent parenchymal changes noted. Hyperinflation compatible with COPD. Increased density right infrahilar region may reflect developing infiltrate. Correlate clinically. Heart size is stable. Mediastinal structures are stable and grossly unremarkable. No evidence for hilar prominence. Degenerative changes dorsal spine. IMPRESSION: 1. Increased density right infrahilar region may reflect developing infiltrate. Correlate clinically.
--- NOTE | 2018-08-10 17:33 | P.PN ---
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 He has had nose bleed, no other bleeding that he is aware of, he denies nausea, hunger, LALITO, need to go to the bathroom or pain. Objective - Vital Signs Vital signs: Vital Signs Temp 100.2 F H 08/10/18 16:53 Pulse 96 08/10/18 16:48 Resp 16 08/10/18 16:48 BP 140/66 08/10/18 16:48 Pulse Ox 94 L 08/10/18 15:00 Intake & Output 08/09/18 08/10/18 08/10/18 18:59 06:59 18:59 Intake Total 120 Balance 120 Weight 100.5 kg Intake: Oral 120 Blood Product 0 Rc Irr As1 Unit 0 [id number] Other: # Voids 5 3 6 # Bowel Movements 0 0 0 - Constitutional General appearance: Present: cooperative, mild distress, obese - EENT Eyes: Present: anicteric sclerae ENT: Present: normal oropharynx - Respiratory Respiratory: bilateral: rales - Cardiovascular Heart sounds: normal: S1, S2 - Gastrointestinal General gastrointestinal: Present: normal bowel sounds, soft - Integumentary Integumentary Comment(s): multiple skin lesions, scabs and moles Integumentary: Present: pale - Musculoskeletal Musculoskeletal Comment(s): pt Musculoskeletal: Present: generalized weakness - Psychiatric Psychiatric: Absent: A&O x's 3, appropriate affect, intact judgment & insight - Labs CBC & Chem 7: 08/10/18 08:55 08/10/18 08:55 Labs: Abnormal Lab Results - Last 24 Hours (Table) 08/08/18 08/10/18 08/10/18 Range/Units 06:52 08:55 08:55 WBC 1.0 L* (3.8-10.6) k/uL RBC 2.32 L (4.30-5.90) m/uL Hgb 6.9 L* (13.0-17.5) gm/dL Hct 20.7 L (39.0-53.0) % RDW 17.1 H (11.5-15.5) % Plt Count 11 L* (150-450) k/uL Neutrophils # (Manual) 0.30 L* 0.20 L* (1.3-7.7) k/uL Lymphocytes # (Manual) 0.67 L (1.0-4.8) k/uL Blast Cells # (Man) 0.08 H (0) k/uL Chloride 108 H (98-107) mmol/L BUN 33 H (9-20) mg/dL Glucose 128 H (74-99) mg/dL AST 15 L (17-59) U/L Total Protein 5.1 L (6.3-8.2) g/dL Albumin 2.8 L (3.5-5.0) g/dL Crossmatch 08/10/18 Range/Units 13:15 WBC (3.8-10.6) k/uL RBC (4.30-5.90) m/uL Hgb (13.0-17.5) gm/dL Hct (39.0-53.0) % RDW (11.5-15.5) % Plt Count (150-450) k/uL Neutrophils # (Manual) (1.3-7.7) k/uL Lymphocytes # (Manual) (1.0-4.8) k/uL Blast Cells # (Man) (0) k/uL Chloride (98-107) mmol/L BUN (9-20) mg/dL Glucose (74-99) mg/dL AST (17-59) U/L Total Protein (6.3-8.2) g/dL Albumin (3.5-5.0) g/dL Crossmatch See Detail Microbiology - Last 24 Hours (Table) 08/07/18 08:03 Blood Culture - Preliminary Blood No Growth after 72 hours 08/07/18 05:39 Blood Culture - Preliminary Blood No Growth after 72 hours 08/04/18 16:52 Blood Culture - Preliminary Blood No Growth after 120 hours Assessment and Plan (1) AML (acute myeloblastic leukemia) Current Visit: Yes Status: Chronic Priority: High Code(s): C92.00 - ACUTE MYELOBLASTIC LEUKEMIA, NOT HAVING ACHIEVED REMISSION SNOMED Code(s): 17205591 (2) Pancytopenia Narrative/Plan: Platelets today for symptomatic thrombocytopenia. PRBCs were ordered Current Visit: Yes Status: Chronic Priority: High Code(s): D61.818 - OTHER PANCYTOPENIA SNOMED Code(s): 183570241 (3) Herpes zoster Current Visit: No Status: Acute Priority: Low Code(s): B02.9 - ZOSTER WITHOUT COMPLICATIONS SNOMED Code(s): 7446433 Plan: Pt continues to receive conservative transfusions. Dr. Traylor had an extensive discussion with last week about diagnosis, prognosis, concerns about pt ability to rehabilitate, performance status to receive Tx as well as likely padilla that pt would derive significant benefit from treatment. The plan was was going to talk to son and make care decisions. is wanting another meeting, this is sched for tomorrow. Will update plan of care after meeting.
[2018-08-10] MEDS: LEVOFLOXACIN 500 MG TAB PO SCH (21:48)
--- NOTE | 2018-08-10 22:26 | P.PN ---
Subjective Progress Note Date: 08/10/18 78-year-old male with a known history of recently diagnosed AML was yet to start therapy continues to have difficulties. Was evaluated by coverage ID over the weekend without change of antimicrobial therapy. Patient is with poor functional status and the oncology team is discussing comfort care. Objective - Vital Signs Vital signs: Vital Signs Temp 102.2 F H 08/10/18 18:38 Pulse 103 H 08/10/18 18:38 Resp 16 08/10/18 18:38 BP 174/77 08/10/18 18:38 Pulse Ox 94 L 08/10/18 15:00 Intake & Output 08/10/18 08/10/18 08/11/18 06:59 18:59 06:59 Intake Total 430 Balance 430 Weight 100.5 kg Intake: Oral 120 Blood Product 310 Rc Irr As1 Unit 310 [id number] Other: # Voids 3 6 2 # Bowel Movements 0 0 0 - Exam 78-year-old male who is arousable has evidence of flaccidity to the left side. HEENT: Anicteric conjunctiva are pink and moist nasal mucosa grossly intact without significant lesions, there is no thrush. Neck: The neck is supple without significant lymphadenopathy or thyromegaly. Lungs: Good bilateral air entry without significant crackles or wheezing. There is no significant bronchial sounds. There is no egophony or dullness. Heart: Regular rate and rhythm with an audible S1-S2, no S3 no S4. There is no significant murmur click or rub, PMI was nondisplaced. Abdomen: Positive bowel sounds soft and nontender without palpable masses or organomegaly. There was no guarding or rebound. Extremities: The upper extremities have excellent pulses they are symmetric, no significant petechiae or telangiectasia. No splinter hemorrhages were noted. The lower extremities are free from significant edema. The peripheral pulses were 2+ and symmetric. Neuro: Has some minimal response to stimuli but the nursing staff relates a while ago he was interactive. left-sided flaccidity is noted - Labs CBC & Chem 7: 08/10/18 08:55 08/10/18 08:55 Labs: Abnormal Lab Results - Last 24 Hours (Table) 08/08/18 08/10/18 08/10/18 Range/Units 06:52 08:55 08:55 WBC 1.0 L* (3.8-10.6) k/uL RBC 2.32 L (4.30-5.90) m/uL Hgb 6.9 L* (13.0-17.5) gm/dL Hct 20.7 L (39.0-53.0) % RDW 17.1 H (11.5-15.5) % Plt Count 11 L* (150-450) k/uL Neutrophils # (Manual) 0.30 L* 0.20 L* (1.3-7.7) k/uL Lymphocytes # (Manual) 0.67 L (1.0-4.8) k/uL Blast Cells # (Man) 0.08 H (0) k/uL Chloride 108 H (98-107) mmol/L BUN 33 H (9-20) mg/dL Glucose 128 H (74-99) mg/dL AST 15 L (17-59) U/L Total Protein 5.1 L (6.3-8.2) g/dL Albumin 2.8 L (3.5-5.0) g/dL Crossmatch 08/10/18 Range/Units 13:15 WBC (3.8-10.6) k/uL RBC (4.30-5.90) m/uL Hgb (13.0-17.5) gm/dL Hct (39.0-53.0) % RDW (11.5-15.5) % Plt Count (150-450) k/uL Neutrophils # (Manual) (1.3-7.7) k/uL Lymphocytes # (Manual) (1.0-4.8) k/uL Blast Cells # (Man) (0) k/uL Chloride (98-107) mmol/L BUN (9-20) mg/dL Glucose (74-99) mg/dL AST (17-59) U/L Total Protein (6.3-8.2) g/dL Albumin (3.5-5.0) g/dL Crossmatch See Detail Microbiology - Last 24 Hours (Table) 08/04/18 16:52 Blood Culture - Final Blood No Growth after 144 hours 08/07/18 08:03 Blood Culture - Preliminary Blood No Growth after 72 hours 08/07/18 05:39 Blood Culture - Preliminary Blood No Growth after 72 hours Laboratory Results WBC 1.0 k/uL (3.8-10.6) L* 08/10/18 08:55 RBC 2.32 m/uL (4.30-5.90) L 08/10/18 08:55 Hgb 6.9 gm/dL (13.0-17.5) L* 08/10/18 08:55 Hct 20.7 % (39.0-53.0) L 08/10/18 08:55 MCV 89.0 fL (80.0-100.0) 08/10/18 08:55 MCH 29.7 pg (25.0-35.0) 08/10/18 08:55 MCHC 33.4 g/dL (31.0-37.0) 08/10/18 08:55 RDW 17.1 % (11.5-15.5) H 08/10/18 08:55 Plt Count 11 k/uL (150-450) L* 08/10/18 08:55 Neutrophils % (Manual) 20 % 08/10/18 08:55 Band Neutrophils % 1 % 08/10/18 08:55 Lymphocytes % (Manual) 67 % 08/10/18 08:55 Monocytes % (Manual) 1 % 08/10/18 08:55 Eosinophils % (Manual) 3 % 08/10/18 08:55 Metamyelocytes % 3 % 08/08/18 06:52 Myelocytes % 1 % 08/06/18 06:46 Promyelocytes % 1 % 08/08/18 06:52 Blast Cells % 8 % 08/10/18 08:55 Neutrophils # MILLINERY COPYIST 08/07/18 05:39 Neutrophils # (Manual) 0.20 k/uL (1.3-7.7) L* 08/10/18 08:55 Lymphocytes # (Manual) 0.67 k/uL (1.0-4.8) L 08/10/18 08:55 Monocytes # (Manual) 0.01 k/uL (0-1.0) 08/10/18 08:55 Eosinophils # (Manual) 0.03 k/uL (0-0.7) 08/10/18 08:55 Metamyelocytes # (Man) 0.04 k/uL (0) H 08/08/18 06:52 Myelocytes # (Manual) 0.01 k/uL (0) H 08/06/18 06:46 Promyelocytes # (Man) 0.01 k/uL (0) H 08/08/18 06:52 Blast Cells # (Man) 0.08 k/uL (0) H 08/10/18 08:55 Nucleated RBCs 0 /100 WBC (0-0) 08/10/18 08:55 Manual Slide Review Performed 08/06/18 06:46 Polychromasia Present 08/08/18 06:52 Poikilocytosis Slight 08/06/18 06:46 Poikilocytosis (manual Present 08/10/18 08:55 Anisocytosis Slight 08/10/18 08:55 Macrocytosis Slight 08/05/18 06:24 Rouleaux Present 08/06/18 06:46 Sodium 142 mmol/L (137-145) 08/10/18 08:55 Potassium 4.1 mmol/L (3.5-5.1) 08/10/18 08:55 Chloride 108 mmol/L (98-107) H 08/10/18 08:55 Carbon Dioxide 26 mmol/L (22-30) 08/10/18 08:55 Anion Gap 8 mmol/L 08/10/18 08:55 BUN 33 mg/dL (9-20) H 08/10/18 08:55 Creatinine 0.92 mg/dL (0.66-1.25) 08/10/18 08:55 Est GFR (CKD-EPI)AfAm >90 (>60 ml/min/1.73 sqM) 08/10/18 08:55 Est GFR (CKD-EPI)NonAf 80 (>60 ml/min/1.73 sqM) 08/10/18 08:55 Glucose 128 mg/dL (74-99) H 08/10/18 08:55 Calcium 8.8 mg/dL (8.4-10.2) 08/10/18 08:55 Total Bilirubin 0.7 mg/dL (0.2-1.3) 08/10/18 08:55 AST 15 U/L (17-59) L 08/10/18 08:55 ALT 30 U/L (21-72) 08/10/18 08:55 Alkaline Phosphatase 44 U/L (38-126) 08/10/18 08:55 NT-Pro-B Natriuret Pep 4160 pg/mL 08/07/18 05:39 Total Protein 5.1 g/dL (6.3-8.2) L 08/10/18 08:55 Albumin 2.8 g/dL (3.5-5.0) L 08/10/18 08:55 Urine Color Yellow 08/04/18 17:00 Urine Appearance Cloudy (Clear) 08/04/18 17:00 Urine pH 5.5 (5.0-8.0) 08/04/18 17:00 Ur Specific C[place] 1.018 (1.001-1.035) 08/04/18 17:00 Urine Protein 1+ (Negative) H 08/04/18 17:00 Urine Glucose (UA) Negative (Negative) 08/04/18 17:00 Urine Ketones Negative (Negative) 08/04/18 17:00 Urine Blood Large (Negative) H 08/04/18 17:00 Urine Nitrite Negative (Negative) 08/04/18 17:00 Urine Bilirubin Negative (Negative) 08/04/18 17:00 Urine Urobilinogen <2.0 mg/dL (<2.0) 08/04/18 17:00 Ur Leukocyte Esterase Negative (Negative) 08/04/18 17:00 Urine RBC 95 /hpf (0-5) H 08/04/18 17:00 Urine WBC 1 /hpf (0-5) 08/04/18 17:00 Ur Squamous Epith Cells 2 /hpf (0-4) 08/04/18 17:00 Urine Mucus Rare /hpf (None) H 08/04/18 17:00 Stool Occult Blood Negative (Negative) 08/04/18 15:38 Vancomycin Trough 19.5 ug/mL 08/09/18 07:36 Group A Strep Rapid Negative (Negative) 08/04/18 17:00 Blood Type O Negative 08/10/18 13:15 Blood Type Recheck No 08/10/18 13:15 Antibody Screen NEGATIVE 08/10/18 13:15 Crossmatch See Detail 08/10/18 13:15 Spec Expiration Date 08/13/2018 - 5126 08/10/18 13:15 Microbiology 08/04/18 16:52 Blood Blood Culture - Final No Growth after 144 hours 08/07/18 08:03 Blood Blood Culture - Preliminary No Growth after 72 hours 08/07/18 05:39 Blood Blood Culture - Preliminary No Growth after 72 hours 08/04/18 17:00 Throat Group A Strep Throat Culture - Final 08/04/18 17:00 Urine,Voided Urine Culture - Final Assessment and Plan (1) AML (acute myeloblastic leukemia) Narrative/Plan: 78-year-old male with a history of multiple medical troubles including transition to AML. He is been followed by oncology in the outpatient setting but has had poor performance status and was not a candidate for chemotherapy but was being considered for Dacogen therapy. He however presents with weakness and altered mental status with profound anemia and ongoing pancytopenia. He is receiving transfusions with irradiated cells and continues to have respiratory distress and has a BiPAP in place. Underlying pneumonia is of concern with neutropenia antibiotic therapy was initiated with cefepime and Levaquin while cultures are in process. Appears that the. Orbital cellulitis and varicella-zoster have resolved well at this time. Prognosis is poor. 08/10/2018 the patient continues to poorly. Antibiotics are continuing while the oncology team is discussing the prudence of comfort care at this time. Current Visit: Yes Status: Chronic Priority: High Code(s): C92.00 - ACUTE MYELOBLASTIC LEUKEMIA, NOT HAVING ACHIEVED REMISSION SNOMED Code(s): 63736766 (2) Pancytopenia Current Visit: Yes Status: Chronic Priority: High Code(s): D61.818 - OTHER PANCYTOPENIA SNOMED Code(s): 243208878
[2018-08-11] MEDS: CEFEPIME 2 GM in SODIUM CHLORIDE 0.9% 50 ML IVPB SCH ×4 (00:08→23:46)
[2018-08-11] MEDS: SODIUM CHLORIDE 0.9% 1,000 ML IV SCH ×2 (00:10→23:36)
[2018-08-11] MEDS: ACETAMINOPHEN TAB 325 MG TAB PO PRN (06:19)
[2018-08-11] MEDS: FUROSEMIDE 20 MG TAB PO SCH (07:55)
[2018-08-11] MEDS: METOPROLOL TARTRATE 50 MG TAB PO SCH (07:55)
[2018-08-11] MEDS: amLODIPine 5 MG TAB PO SCH (07:56)
[2018-08-11] MEDS: FAMOTIDINE 20 MG TAB PO SCH (07:56)
[2018-08-11] MEDS: POTASSIUM CHLORIDE ER 20 MEQ TAB.ER PO SCH (07:56)
[2018-08-11] MEDS: NYSTATIN 100,000 UNIT/ML SUSP 500,000 UNIT/5 ML CUP PO SCH ×4 (07:56→20:54)
[2018-08-11] MEDS: FLUTICASONE 50MCG/SPRAY NASAL 16GM EA NOSTRIL SCH (08:02)
[2018-08-11] MEDS: VANCOMYCIN 1,500 MG in SODIUM CHLORIDE 0.9% 250 ML IVPB SCH ×2 (08:56→20:54)
[2018-08-11 09:56] LABS: Anisocytosis Slight; HCT 20.7 % (39.0-53.0); MCH 27.5 pg (25.0-35.0); MCV 86.1 fL (80.0-100.0); Mean Platelet Volume 10.3; RDW 16.4 % (11.5-15.5)
[2018-08-11 10:09] LABS: HGB 6.6 gm/dL (13.0-17.5)
[2018-08-11 10:10] LABS: Platelet Count 24 k/uL (150-450)
[2018-08-11 10:25] LABS: Anion Gap 8 mmol/L; Blood Urea Nitrogen 34 mg/dL (9-20); Calcium 8.5 mg/dL (8.4-10.2); Carbon Dioxide 25 mmol/L (22-30); Chloride 107 mmol/L (98-107); Glucose 146 mg/dL (74-99); Sodium 140 mmol/L (137-145)
[2018-08-11] MEDS: ANIDULAFUNGIN 100 MG in SODIUM CHLORIDE 0.9% 100 ML IVPB SCH (11:12)
[2018-08-11 11:39] LABS: Band Neutrophils % 1 %; Eosinophils # (M) 0.06 k/uL (0-0.7); Lymphocytes # (M) 0.59 k/uL (1.0-4.8); Monocytes # (M) 0.04 k/uL (0-1.0); Neutrophils % (M) 15 %
[2018-08-11 11:40] LABS: Blast Cells # (M) 0.15 k/uL (0); Nucleated Red Blood Cells 1 /100 WBC (0-0); Poikilocytosis (M) Present; Total Cells Counted 100
[2018-08-11] MEDS ORDERED: HYDROcodone/APAP 10-325MG 1 EACH TAB PO ONE (12:16)
[2018-08-11] MEDS ORDERED: HYDROcodone/APAP 10-325MG 1 EACH TAB PO PRN (12:16)
--- NOTE | 2018-08-11 13:40 | P.PN ---
Subjective Progress Note Date: 08/11/18 This is a 78-year-old male, patient of Dr. Goldberg. 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 Patient was recently hospitalized at the end of June with shingles and left periorbital cellulitis. Patient completed antibiotics and shingles treatment. He is currently at [facility] for rehabilitation. He was transferred to [facility] this morning due to mental status changes and confusion. Patient was then transferred to [facility] for further workup and evaluation. At [facility] computed tomography scan of the brain was negative for any stroke. Chest x-ray negative for any acute pulmonary process. Stool for occult blood was negative. He was found to have a hemoglobin of 4.6 and is scheduled for 2 units of blood today. White count was 1.4 platelets 10 creatinine 1.19. Oncology will be consulted. Patient has not had a chance to start chemotherapy treatment for his AML he has been too weak to undergo chemo treatment. He had a temperature 100.4 on admission. He is complaining of a sore throat does have sinus congestion and postnasal drip. Also has been having [facility]bleeds at the [facility]. Patient has been picking he has scabs on his ear and scabs around his nose. He is still confused he knows his name only. Patient denies any chest pain or shortness of breath. Denies any nausea or vomiting. Does report having diarrhea. Stool be checked for C. diff. Denies any burning with urination. Patient also saw evidence of oral thrush and nystatin swish and swallow the added. He is already on Diflucan and Cipro for prophylaxis. Patient also complaining of some pain along the left side of the face. Known new injury. No tenderness with palpation. No swelling or lacerations noted. On 08/05/2018 patient is currently resting comfortably in bed. At this time patient denies chest pain or shortness of breath. Denies any nausea vomiting or diarrhea. Denies any burning with urination. patient did have elevated temperature 101.[address] Min for infectious disease has been consulted. Hemoglobin 5.2 this a.m. 2 units PRBCs have been ordered Per oncology. 08/06/2018 patient is currently on Levaquin and cefepime per infectious disease disease for questionable pneumonia. Order chest x-ray. Patient has been now afebrile. Stool for occult blood negative. Strep screen was negative. Urinalysis and urine culture negative for infection did show large blood. However at that time platelets are low at 10. Patient did receive 2 g of blood yesterday hemoglobin is now up to 6.6. White count 1.2 and platelets 12. Discussed case with oncology they will be ordering blood transfusion. They're also planning to have a family meeting tomorrow. 08/07/2018 patient's hemoglobin is 6.3 WBC 1 platelets 15. He is scheduled for another unit of blood today. He received a unit of blood yesterday. Had a high temp this morning of 101.4. Also had fevers yesterday. Infectious disease has adjusted antibiotics. He is currently on vancomycin and cefepime Levaquin and anidulafungin. Patient did have episodes of epistaxis yesterday evening. That resolved. Denies any chest pain or shortness of breath. Denies any nausea vomiting. Denies any bowel movement changes or urinary symptoms. Chest x-ray showing possible volume overload pulmonary venous hypertension and interstitial edema ammonia not excluded. BNP ordered BNP 4160. We'll Hep-Lock patient's IV fluids On 08/08/2018 patient is alert slightly confused in no apparent distress, temperature is 101, blood pressure 157/61, pulse ox 93% on room air, patient is complaining of occasional cough otherwise no complaints there is no chest pain or shortness of breath, no nausea or vomiting no abdominal pain no diarrhea and no urinary symptoms. On 08/09/2018 patient is more confused today he is alert in no apparent distress he denies any symptoms at this time. Medication reviewed patient has been maintained on antibiotic he had a recent herpes zoster eruption and currently he is not on any antiviral medication nurse will contact infectious disease to reassess patient today in that regard On 08/10/2018 patient is alert but remains confused at times. Patient denies chest pain or shortness of breath. Patient denies nausea diarrhea or vomiting. Patient denies any urinary burning or frequency. Patient's hemoglobin does still remain low at 6.9. 1 unit PRBCs has been ordered per oncology. 08/11/2018 patient lying in bed comfortably but confused. Family had meeting with oncology. Family has decided to proceed with hospice. Social work and hospice have been consulted. Patient's overall condition is very poor and guarded. White count 1 hemoglobin 6.6 platelets 24 and he continues to have temps 100.6 chest x-ray showing an increased density in the right infrahilar region may reflect a developing infiltrate. Patient has been coughing. Currently on multiple antibiotics with not much improvement. Objective - Vital Signs Vital signs: Vital Signs Temp 98.7 F 08/11/18 08:17 Pulse 94 08/11/18 08:17 Resp 20 08/11/18 08:17 BP 111/55 08/11/18 08:17 Pulse Ox 93 L 08/11/18 08:17 Intake & Output 08/10/18 08/11/18 08/11/18 18:59 06:59 18:59 Intake Total 430 0 300 Balance 430 0 300 Intake: Oral 120 Blood Product 310 0 300 Platelet Irr Pheresis 0 300 Acda1 Unit [id number] Rc Irr As1 Unit 310 [id number] Other: Voiding Method Diaper Incontinent # Voids 6 3 # Bowel Movements 0 0 - Exam Head normocephalic Neck supple Lungs clear to auscultation bilaterally no wheezing or crackles Heart regular rate and rhythm S1-S2, no rub or gallop Abdomen is soft nontender nondistended positive bowel sounds no hepatosplenomegaly Extremities no edema Neuro confused - Labs CBC & Chem 7: 08/11/18 09:25 08/11/18 09:25 Labs: Abnormal Lab Results - Last 24 Hours (Table) 08/10/18 08/11/18 08/11/18 Range/Units 13:15 09:25 09:25 WBC 1.0 L* (3.8-10.6) k/uL RBC 2.40 L (4.30-5.90) m/uL Hgb 6.6 L* (13.0-17.5) gm/dL Hct 20.7 L (39.0-53.0) % RDW 16.4 H (11.5-15.5) % Plt Count 24 L D (150-450) k/uL Neutrophils # (Manual) 0.10 L* (1.3-7.7) k/uL Lymphocytes # (Manual) 0.59 L (1.0-4.8) k/uL Blast Cells # (Man) 0.15 H (0) k/uL Nucleated RBCs 1 H (0-0) /100 WBC BUN 34 H (9-20) mg/dL Glucose 146 H (74-99) mg/dL Crossmatch See Detail Microbiology - Last 24 Hours (Table) 08/07/18 08:03 Blood Culture - Preliminary Blood No Growth after 96 hours 08/07/18 05:39 Blood Culture - Preliminary Blood No Growth after 96 hours 08/04/18 16:52 Blood Culture - Final Blood No Growth after 144 hours Assessment and Plan Assessment: 1. Altered mental status changes: Possibly related to metabolic encephalopathy due to significant anemia and infectious process. Possible pneumonia. Chest x- ray at [facility] was negative. Computed tomography scan of the brain at [facility] negative. Urine culture negative. Blood cultures remain negative. Strep screen negative. Patient no longer having diarrhea and unable to collect stool for C. diff. Hold Percocets 2. Pancytopenia: Possibly secondary to patient's AML. Oncology following 3. Anemia possibly secondary to patient's AML. However, patient has been having episodes of epistaxis may be some underlying acute blood loss anemia. Continue to monitor. We'll add ocean nasal spray. Hemoglobin down to 6.3. Patient did have another episode of epistaxis last night. He is scheduled for another unit of blood today. 4. Epistaxis: Add ocean nasal spray and monitor. 5. Sore throat with sinus congestion and postnasal drip. Add Flonase nasal spray. Resolved 6. Oral thrush possible contributing to patient's sore throat and nystatin swish and swallow 7. Recent hospitalization for herpes zoster. Resolved 8. Recent left periorbital cellulitis resolved 9. Acute myeloid leukemia: oncology following 10. 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 History of prostate cancer status post surgery and radiation treatment in 1998 12. Acute kidney injury: Creatinine 1.19 possibly related to dehydration. Continue function has shown improvement. 13. Fever with concerns of possible pneumonia. Patient continues to have fevers. Antibiotics adjusted per infectious disease. Patient currently on vancomycin, cefepime, Levaquin and anidulafungin 14. History of chronic systolic CHF. Chest x-ray showing interstitial edema. BNP elevated at 4000's. Hep-Lock IV. Resume patient's Lasix 20 mg by mouth daily Plan Patient's family has decided to proceed with hospice care after meeting with the oncology service. Consult has been placed for hospice and social work per oncology. Anticipate discharge to [facility] or ECF with hospice possibly tomorrow I performed an examination of the patient and discussed their management with the physician Pearl Restorer. I have reviewed the Physician Pearl Restorer's notes and agree with the documented findings and plan of care
--- NOTE | 2018-08-11 14:09 | P.PN ---
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 Patient is having some pain in his hip, he's had this pain before, it is mild to moderate, worse when he moves around too much or when he stays still too long , pain meds to help. Patient has a congested sounding cough, not expectorating much, no hemoptysis. Patient is very weak, oral intake is poor, moderate intake of fluids. Objective - Vital Signs Vital signs: Vital Signs Temp 98.7 F 08/11/18 08:17 Pulse 94 08/11/18 08:17 Resp 20 08/11/18 08:17 BP 111/55 08/11/18 08:17 Pulse Ox 93 L 08/11/18 08:17 Intake & Output 08/10/18 08/11/18 08/11/18 18:59 06:59 18:59 Intake Total 430 0 300 Balance 430 0 300 Intake: Oral 120 Blood Product 310 0 300 Platelet Irr Pheresis 0 300 Acda1 Unit [id number] Rc Irr As1 Unit 310 [id number] Other: Voiding Method Diaper Incontinent # Voids 6 3 # Bowel Movements 0 0 - Constitutional General appearance: Present: average body habitus, cooperative, mild distress - EENT Eyes: Present: anicteric sclerae - Respiratory Details: congested cough - Cardiovascular Heart sounds: normal: S1, S2 - Gastrointestinal General gastrointestinal: Present: normal bowel sounds - Integumentary Integumentary Comment(s): multiple skin lesions Integumentary: Present: pale - Musculoskeletal Musculoskeletal Comment(s): patient is unable to adjust his body weight Musculoskeletal: Present: generalized weakness - Psychiatric Psychiatric Comment(s): patient is alert, oriented to self, otherwise orientation is labile - Labs CBC & Chem 7: 08/11/18 09:25 08/11/18 09:25 Labs: Abnormal Lab Results - Last 24 Hours (Table) 08/10/18 08/11/18 08/11/18 Range/Units 13:15 09:25 09:25 WBC 1.0 L* (3.8-10.6) k/uL RBC 2.40 L (4.30-5.90) m/uL Hgb 6.6 L* (13.0-17.5) gm/dL Hct 20.7 L (39.0-53.0) % RDW 16.4 H (11.5-15.5) % Plt Count 24 L D (150-450) k/uL Neutrophils # (Manual) 0.10 L* (1.3-7.7) k/uL Lymphocytes # (Manual) 0.59 L (1.0-4.8) k/uL Blast Cells # (Man) 0.15 H (0) k/uL Nucleated RBCs 1 H (0-0) /100 WBC BUN 34 H (9-20) mg/dL Glucose 146 H (74-99) mg/dL Crossmatch See Detail Microbiology - Last 24 Hours (Table) 08/07/18 08:03 Blood Culture - Preliminary Blood No Growth after 96 hours 08/07/18 05:39 Blood Culture - Preliminary Blood No Growth after 96 hours 08/04/18 16:52 Blood Culture - Final Blood No Growth after 144 hours Assessment and Plan (1) AML (acute myeloblastic leukemia) Current Visit: Yes Status: Chronic Priority: High Code(s): C92.00 - ACUTE MYELOBLASTIC LEUKEMIA, NOT HAVING ACHIEVED REMISSION SNOMED Code(s): 41305556 (2) Pancytopenia Current Visit: Yes Status: Chronic Priority: High Code(s): D61.818 - OTHER PANCYTOPENIA SNOMED Code(s): 617074162 (3) Herpes zoster Current Visit: No Status: Acute Priority: Low Code(s): B02.9 - ZOSTER WITHOUT COMPLICATIONS SNOMED Code(s): 0038034 Plan: Discussed with the , patient and family diagnosis, prognosis and intent of any treatment, risk vs benefit of treatment, with all of the aformentioned dependent on rehabilitation. Pt's ability to rehabilitate is severely compromised. Patient is very weak from pancytopenia of malignancy, requiring transfusions nearly daily to maintain borderline hemoglobin. We reviewed that transfusions have only a temporary effect and that there are side effects and sequela of ongoing therapy including, but not limited to, end organ damage from hemochromatosis or infection from blood product. We discussed that treatment at this time for AML could possibly even hasten patient's as there is a typical drop in blood counts initially after treatment. Patient's performance status is very poor and his ability to rehabilitate is poor as well. All of the patient and family's questions were answered to the best of my ability. Decision was for comfort measures only. Family has relatives and friends with [facility], [facility] has been consulted. Nursing has informed case management of decision for hospice. Continue antibiotics and comfort medications, discontinue invasive procedures such as blood draws, no more blood transfusions. greater than 30 minutes counseling and coordinating care Time with Patient: Greater than 30
[2018-08-11] MEDS: ALPRAZolam 0.25 MG TAB PO SCH ×3 (14:21→20:54)
[2018-08-11] MEDS: LEVOFLOXACIN 500 MG TAB PO SCH (20:54)
[2018-08-12] MEDS ORDERED: VANCOMYCIN TROUGH DUE 1 EACH MISC MISCELLANE ONE (07:00)
[2018-08-12] MEDS: CEFEPIME 2 GM in SODIUM CHLORIDE 0.9% 50 ML IVPB SCH (07:36)
[2018-08-12] MEDS: VANCOMYCIN 1,500 MG in SODIUM CHLORIDE 0.9% 250 ML IVPB SCH (08:21)
[2018-08-12] MEDS: ALPRAZolam 0.25 MG TAB PO SCH ×3 (08:21→12:49)
[2018-08-12] MEDS: amLODIPine 5 MG TAB PO SCH ×2 (08:21→08:25)
[2018-08-12] MEDS: ANIDULAFUNGIN 100 MG in SODIUM CHLORIDE 0.9% 100 ML IVPB SCH (08:21)
[2018-08-12] MEDS: NYSTATIN 100,000 UNIT/ML SUSP 500,000 UNIT/5 ML CUP PO SCH ×3 (08:22→12:49)
[2018-08-12] MEDS: FUROSEMIDE 20 MG TAB PO SCH ×2 (08:22→08:26)
[2018-08-12] MEDS: FLUTICASONE 50MCG/SPRAY NASAL 16GM EA NOSTRIL SCH (08:22)
[2018-08-12] MEDS: METOPROLOL TARTRATE 50 MG TAB PO SCH ×2 (08:22→08:26)
[2018-08-12] MEDS: FAMOTIDINE 20 MG TAB PO SCH ×2 (08:22→08:25)
[2018-08-12] MEDS: POTASSIUM CHLORIDE ER 20 MEQ TAB.ER PO SCH ×2 (08:23→08:26)
[2018-08-12 11:07] VITALS: BP 117/78; PULSE 99; RESP 20; TEMP 98.1
--- NOTE | 2018-08-12 13:28 | P.DS ---
Providers Date of admission: 08/04/18 13:26 Expected date of discharge: 08/12/18 Attending physician: Gilma Oropeza Consults: 08/04/18 15:23 Consult Physician Routine Consulting Provider: Gonzalez Traylor Consult Reason/Comments: Pancytopenia Do you want consulting provider notified?: Yes 08/05/18 10:33 Consult Physician Routine Consulting Provider: Dennis Min Consult Reason/Comments: previously seen. febrile Do you want consulting provider notified?: Yes Primary care physician: [facility] Course: Discharge diagnosis Terminal diagnosis acute myeloid leukemia 1. Altered mental status changes: Possibly related to metabolic encephalopathy due to significant anemia and infectious process. Possible pneumonia. Chest x- ray at [facility] was negative. Computed tomography scan of the brain at [facility] negative. Urine culture negative. Blood cultures remain negative. Strep screen negative. Patient no longer having diarrhea and unable to collect stool for C. diff. Hold Percocets 2. Pancytopenia: Possibly secondary to patient's AML. Oncology following 3. Anemia possibly secondary to patient's AML. However, patient has been having episodes of epistaxis may be some underlying acute blood loss anemia. Continue to monitor. We'll add ocean nasal spray. Hemoglobin down to 6.3. Patient did have another episode of epistaxis last night. He is scheduled for another unit of blood today. 4. Epistaxis: Add ocean nasal spray and monitor. 5. Sore throat with sinus congestion and postnasal drip. Add Flonase nasal spray. Resolved 6. Oral thrush possible contributing to patient's sore throat and nystatin swish and swallow 7. Recent hospitalization for herpes zoster. Resolved 8. Recent left periorbital cellulitis resolved 9. Acute myeloid leukemia: oncology following 10. 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 History of prostate cancer status post surgery and radiation treatment in 1998 12. Acute kidney injury: Creatinine 1.19 possibly related to dehydration. Continue function has shown improvement. 13. Fever with concerns of possible pneumonia. Patient continues to have fevers. Antibiotics adjusted per infectious disease. Patient currently on vancomycin, cefepime, Levaquin and anidulafungin 14. History of chronic systolic CHF. Chest x-ray showing interstitial edema. BNP elevated at 4000's. Hep-Lock IV. Resume patient's Lasix 20 mg by mouth [facility] Course This is a 78-year-old male, patient of Dr. Goldberg. 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 Patient was recently hospitalized at the end of June with shingles and left periorbital cellulitis. Patient completed antibiotics and shingles treatment. He is currently at [facility] for rehabilitation. He was transferred to [facility] this morning due to mental status changes and confusion. Patient was then transferred to [facility] for further workup and evaluation. At [facility] computed tomography scan of the brain was negative for any stroke. Chest x-ray negative for any acute pulmonary process. Stool for occult blood was negative. He was found to have a hemoglobin of 4.6 and is scheduled for 2 units of blood today. White count was 1.4 platelets 10 creatinine 1.19. Oncology will be consulted. Patient has not had a chance to start chemotherapy treatment for his AML he has been too weak to undergo chemo treatment. He had a temperature 100.4 on admission. He is complaining of a sore throat does have sinus congestion and postnasal drip. [facility] Patient has been picking he has scabs on his ear and scabs around his nose. He is still confused he knows his name only. Patient denies any chest pain or shortness of breath. Denies any nausea or vomiting. Does report having diarrhea. Stool be checked for C. diff. Denies any burning with urination. Patient also saw evidence of oral thrush and nystatin swish and swallow the added. He is already on Diflucan and Cipro for prophylaxis. Patient also complaining of some pain along the left side of the face. Known new injury. No tenderness with palpation. No swelling or lacerations noted. On 08/05/2018 patient is currently resting comfortably in bed. At this time patient denies chest pain or shortness of breath. Denies any nausea vomiting or diarrhea. Denies any burning with urination. patient did have elevated temperature 101.[address] Min for infectious disease has been consulted. Hemoglobin 5.2 this a.m. 2 units PRBCs have been ordered Per oncology. 08/06/2018 patient is currently on Levaquin and cefepime per infectious disease disease for questionable pneumonia. Order chest x-ray. Patient has been now afebrile. Stool for occult blood negative. Strep screen was negative. Urinalysis and urine culture negative for infection did show large blood. However at that time platelets are low at 10. Patient did receive 2 g of blood yesterday hemoglobin is now up to 6.6. White count 1.2 and platelets 12. Discussed case with oncology they will be ordering blood transfusion. They're also planning to have a family meeting tomorrow. 08/07/2018 patient's hemoglobin is 6.3 WBC 1 platelets 15. He is scheduled for another unit of blood today. He received a unit of blood yesterday. Had a high temp this morning of 101.4. Also had fevers yesterday. Infectious disease has adjusted antibiotics. He is currently on vancomycin and cefepime Levaquin and anidulafungin. Patient did have episodes of epistaxis yesterday evening. That resolved. Denies any chest pain or shortness of breath. Denies any nausea vomiting. Denies any bowel movement changes or urinary symptoms. Chest x-ray showing possible volume overload pulmonary venous hypertension and interstitial edema ammonia not excluded. BNP ordered BNP 4160. We'll Hep-Lock patient's IV fluids On 08/08/2018 patient is alert slightly confused in no apparent distress, temperature is 101, blood pressure 157/61, pulse ox 93% on room air, patient is complaining of occasional cough otherwise no complaints there is no chest pain or shortness of breath, no nausea or vomiting no abdominal pain no diarrhea and no urinary symptoms. On 08/09/2018 patient is more confused today he is alert in no apparent distress he denies any symptoms at this time. Medication reviewed patient has been maintained on antibiotic he had a recent herpes zoster eruption and currently he is not on any antiviral medication nurse will contact infectious disease to reassess patient today in that regard On 08/10/2018 patient is alert but remains confused at times. Patient denies chest pain or shortness of breath. Patient denies nausea diarrhea or vomiting. Patient denies any urinary burning or frequency. Patient's hemoglobin does still remain low at 6.9. 1 unit PRBCs has been ordered per oncology. 08/11/2018 patient lying in bed comfortably but confused. Family had meeting with oncology. Family has decided to proceed with hospice. Social work and hospice have been consulted. Patient's overall condition is very poor and guarded. White count 1 hemoglobin 6.6 platelets 24 and he continues to have temps 100.6 chest x-ray showing an increased density in the right infrahilar region may reflect a developing infiltrate. Patient has been coughing. Currently on multiple antibiotics with not much improvement. On 08/12/2018 patient's and family decided patient will be discharged to [facility]. Patient will be discharged to [place] with specialized ECF facility under [place] [facility] care. I performed an examination of the patient and discussed their management with the Nurse Practitioner. I have reviewed the Nurse Practitioner's notes and agree with the documented findings and plan of care Patient Condition at Discharge: Fair Plan - Discharge Summary Discharge Rx Participant: No New Discharge Prescriptions: New Benzocaine/Menthol Lozeng [Cepacol lozenge] 1 each MUCOUS MEM Q3HR PRN lozenge PRN Reason: Cough Fluticasone Nasal [place] [Flonase Nasal [place]] 2 spray EA NOSTRIL DAILY spr Levofloxacin [Levaquin] 500 mg PO HS tab Nystatin 100,000 Unit/ml Susp [Mycostatin Oral Susp] 500,000 unit PO QID cup Sodium Chloride 0.65% Nasal [Deep Sea (Saline)] 2 spray NASAL QID PRN spray PRN Reason: Dry Nasal Passages Vancomycin 1,500 mg IVPB Q16H vial ALPRAZolam [Xanax] 0.25 mg PO QID 3 Days #12 tab Continue amLODIPine [Norvasc] 5 mg PO DAILY Potassium Chloride [Klor-Con 20] 20 meq PO DAILY Vilazodone HCl [Viibryd] 40 mg PO DAILY Ondansetron [Zofran] 4 mg PO Q8H PRN PRN Reason: Nausea Acetaminophen Tab [Tylenol] 650 mg PO Q6H PRN PRN Reason: Headache Ciprofloxacin HCl [Cipro] 250 mg PO Q12HR Metoprolol Tartrate [Lopressor] 50 mg PO DAILY Furosemide [Lasix] 20 mg PO DAILY Fluconazole [Diflucan] 100 mg PO DAILY oxyCODONE-APAP 5-325MG [Percocet 5-325 mg] 1 tab PO Q8HR PRN #9 tab PRN Reason: Pain Discharge Medication List amLODIPine [Norvasc] 5 mg PO DAILY 06/30/18 [History] Potassium Chloride [Klor-Con 20] 20 meq PO DAILY 07/16/18 [History] Vilazodone HCl [Viibryd] 40 mg PO DAILY 07/16/18 [History] Acetaminophen Tab [Tylenol] 650 mg PO Q6H PRN 08/04/18 [History] Ciprofloxacin HCl [Cipro] 250 mg PO Q12HR 08/04/18 [History] Fluconazole [Diflucan] 100 mg PO DAILY 08/04/18 [History] Furosemide [Lasix] 20 mg PO DAILY 08/04/18 [History] Metoprolol Tartrate [Lopressor] 50 mg PO DAILY 08/04/18 [History] Ondansetron [Zofran] 4 mg PO Q8H PRN 08/04/18 [History] ALPRAZolam [Xanax] 0.25 mg PO QID 3 Days #12 tab 08/12/18 [Rx] Benzocaine/Menthol Lozeng [Cepacol lozenge] 1 each MUCOUS MEM Q3HR PRN lozenge 08/12/18 [Rx] Fluticasone Nasal [place] [Flonase Nasal [place]] 2 spray EA NOSTRIL DAILY spr [Rx] Levofloxacin [Levaquin] 500 mg PO HS tab 08/12/18 [Rx] Nystatin 100,000 Unit/ml Susp [Mycostatin Oral Susp] 500,000 unit PO QID cup [Rx] Sodium Chloride 0.65% Nasal [Deep Sea (Saline)] 2 spray NASAL QID PRN spray [Rx] Vancomycin 1,500 mg IVPB Q16H vial 08/12/18 [Rx] oxyCODONE-APAP 5-325MG [Percocet 5-325 mg] 1 tab PO Q8HR PRN #9 tab 08/12/18 [Rx ] Follow up Appointment(s)/Referral(s): Nola Goldberg DO [Primary Care Provider] - 1-2 days Patient Instructions/Handouts: Acute Lymphocytic Leukemia (DC), Acute Myeloid Leukemia (DC), Anemia (DC), Fall Prevention (DC) Activity/Diet/Wound Care/Special Instructions: patient being discharged with [facility] to [place] specialized facility Discharge Disposition: HOME WITH HOSPICE
[2018-08-13] MEDS ORDERED: VANCOMYCIN 1,500 MG in SODIUM CHLORIDE 0.9% 250 ML IVPB SCH ×2
== END 2018-08-12 14:53 | disposition hospice, home (50) | DRG 834 ==
LOC: EC 10:13 → 6SEL 13:26 → 4MS4W 08-08 14:01
PROVIDERS: ADMIT Internal Medicine; ATTEND Internal Medicine
PROC: 30233N1 Transfusion of Nonautologous Red Blood Cells into Peripheral Vein, Percutaneous Approach (ICD-10-PCS; principal; 2018-08-05)
PROC: 30233R1 Transfusion of Nonautologous Platelets into Peripheral Vein, Percutaneous Approach (ICD-10-PCS; 2018-08-11)
DX: C92.00 Acute myeloblastic leukemia, not having achieved remission (principal); J18.9 Pneumonia, unspecified organism; G93.41 Metabolic encephalopathy; B37.0 Candidal stomatitis; D61.818 Other pancytopenia; I50.22 Chronic systolic (congestive) heart failure; D70.9 Neutropenia, unspecified; E87.70 Fluid overload, unspecified; I11.0 Hypertensive heart disease with heart failure; I27.20 Pulmonary hypertension, unspecified; R06.03 Acute respiratory distress; R50.81 Fever presenting with conditions classified elsewhere; E78.5 Hyperlipidemia, unspecified; I25.2 Old myocardial infarction; R04.0 Epistaxis; M25.559 Pain in unspecified hip; R09.81 Nasal congestion; R09.82 Postnasal drip; R19.7 Diarrhea, unspecified; R32 Unspecified urinary incontinence; Z51.5 Encounter for palliative care; Z79.899 Other long term (current) drug therapy; Z91.041 Radiographic dye allergy status; Z85.46 Personal history of malignant neoplasm of prostate; Z85.828 Personal history of other malignant neoplasm of skin; Z87.891 Personal history of nicotine dependence; Z92.21 Personal history of antineoplastic chemotherapy; Z92.3 Personal history of irradiation; Z95.0 Presence of cardiac pacemaker; Z86.14 Personal history of Methicillin resistant Staphylococcus aureus infection; Z90.49 Acquired absence of other specified parts of digestive tract; Z96.652 Presence of left artificial knee joint; Z96.661 Presence of right artificial ankle joint; Z80.3 Family history of malignant neoplasm of breast; Z82.3 Family history of stroke
CPT/HCPCS: 71046; 73501; 80048; 80053; 80202; 81001; 82272; 83880; 85025; 86850; 86900; 86901; 86920; 87040; 87081; 87086; 87430; 94760; 96365; 99285